=== PATIENT | male | born 1955 | race Asian ===

== ENCOUNTER 2018-11-05 11:31 | Inpatient (IN) | payer BC ==
[2018-11-05 11:57] LABS: Hematocrit 36 % (36-46); Hemoglobin 11.4 g/dL (14.0-18.0); Mean Corpuscular HGB Conc 32 g/dL (31-36); Mean Corpuscular Hemoglobin 25 pg (27-31); Mean Corpuscular Volume 78 fL (80-94); Mean Platelet Volume 7.4 fL (7.4-10.4); Platelet Count 345 10^3/uL (150-450); Red Blood Count 4.61 10^6 /uL (4.18-5.48); Red Cell Distribution Width 16 % (10.5-15); White Blood Count 7.6 10^3/uL (3.5-10.8)
[2018-11-05 12:08] LABS: ABS Basophils 0 10^3/ul (0-0.2); ABS Eosinophils 0 10^3/ul (0-0.6); ABS Monocytes 0.6 10^3/ul (0-0.8); ABS Neutrophils 5.8 10^3/ul (1.5-7.7); ABS Nucleated RBC 0 10^3/ul; Eosinophil % 0.5 %; Lymphocyte % 13.3 %
[2018-11-05 12:09] LABS: Nucleated Red Blood Cells % 0
--- NOTE | 2018-11-05 12:15 | ED ---
HPI Chest Pain - HPI Summary HPI Summary: Patient is a 63 y/o male brought in by EMS who presents to the ED c/o CP. About 1 month ago he began to have CP and SOB. The pain is located in his left anterior chest, radiates to his back, and is described as pressure. Pain is rated a 7/10 in severity, and is made worse with exertion. Patient states that his pain has been worsening over time, and he is losing sleep because of the pain. He also c/o generalized weakness and fatigue, but denies any nausea or dizziness. Patient has been on a 4 medication regimen for active TB for the past 2 months. As per , he has 5 days left of his medications. As per EMS, he is no longer contagious. notes that he had a cough prior to starting the medications but this has resolved. He believes his symptoms may be a side effect of the medications. However, he went to a physician in [place] and told this was not the case. A CXR done there was negative, and he had a CT but has not yet received the results. As per medical records, he is not a smoker. 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 Negative: Dizziness, Nausea Related History: Similar Episode/Dx as: - current TB treatment - Allergy/Home Medications Allergies/Adverse Reactions: Allergies Allergy/AdvReac Type Severity Reaction Status Date / Time azithromycin Allergy Unknown Verified 11/05/18 11:34 Reaction Details levofloxacin Allergy Unknown Verified 11/05/18 11:34 Reaction Details Tetracyclines Allergy Unknown Verified 11/05/18 11:34 Reaction Details Home Medications: Home Medications Albuterol inh POWDER (NF) [Proair Respiclick] 2 puff INH Q4HR PRN 11/05/18 [ History Confirmed 11/05/18] Isoniazid TAB* 300 mg PO DAILY 11/05/18 [History Confirmed 11/05/18] Moxifloxacin TAB(NF) [Avelox TAB (NF)] 400 mg PO DAILY 11/05/18 [History Confirmed 11/05/18] Pyridoxine HCl (Vitamin B6) [Vitamin B-6] 25 mg PO DAILY 11/05/18 [History Confirmed 11/05/18] RiFAMPin CAP* 600 mg PO DAILY 11/05/18 [History Confirmed 11/05/18] traMADol TAB* [Ultram*] 50 mg PO Q6HR PRN 11/05/18 [History Confirmed 11/05/18] PMH/Surg Hx/FS Hx/Imm Hx Endocrine/Hematology History: Denies: Hx Diabetes Cardiovascular History: Denies: Hx Hypertension GI History: Reports: Other GI Disorders - peptic ulcers - Surgical History Surgery Procedure, Year, and Place: 2/3 stomach removed Infectious Disease History: Yes Infectious Disease History: Reports: Hx Tuberculosis Denies: Traveled Outside the [place] in Last 30 Days - Family History Known Family History: Negative: Hypertension, Diabetes - Social History Alcohol Use: None Hx Substance Use: No Substance Use Type: Reports: None Hx Tobacco Use: No Smoking Status (MU): Never Smoked Tobacco Review of Systems Positive: Fatigue Positive: Chest Pain Positive: Shortness Of Breath Negative: Nausea Neurological: Other - NEGATIVE: dizziness Positive: Weakness - generalized All Other Systems Reviewed And Are Negative: Yes Physical Exam - Summary Physical Exam Summary: Constitutional: Well-developed, Well-nourished, Alert. Appears uncomfortable. Skin: Warm, Dry HENT: Normocephalic; Atraumatic Eyes: Conjunctiva normal Neck: Musculoskeletal ROM normal neck. (-) JVD, (-) Stridor, (-) Tracheal deviation Cardio: Rhythm regular, rate normal, Heart sounds normal; Intact distal pulses; The pedal pulses are 2+ and symmetric. Radial pulses are 2+ and symmetric. (-) Murmur Pulmonary/Chest wall: Effort normal. (-) Respiratory distress, (-) Wheezes, (-) Rales Abd: Soft, (-) tenderness, (-) Distension, (-) Guarding, (-) Rebound Musculoskeletal: (-) Edema Lymph: (-) Cervical adenopathy Neuro: Alert, Oriented x3 Psych: Mood and affect Normal Triage Information Reviewed: Yes Vital Signs On Initial Exam: Initial Vitals Temp Pulse Resp BP Pulse Ox 98.8 F 56 24 116/71 98 11/05/18 11:31 11/05/18 11:31 11/05/18 11:31 11/05/18 11:31 11/05/18 11:31 Vital Signs Reviewed: Yes Diagnostics - Vital Signs Vital Signs Temp Pulse Resp BP Pulse Ox 11/05/18 11:35 54 16 116/71 98 11/05/18 11:31 98.8 F 56 24 116/71 98 - Laboratory Lab Results: Lab Results 11/05/18 Range/Units 11:50 WBC 7.6 (3.5-10.8) 10^3/uL RBC 4.61 (4.18-5.48) 10^6 /uL Hgb 11.4 L (14.0-18.0) g/dL Hct 36 (36-46) % MCV 78 L (80-94) fL MCH 25 L (27-31) pg MCHC 32 (31-36) g/dL RDW 16 H (10.5-15) % Plt Count 345 (150-450) 10^3/uL MPV 7.4 (7.4-10.4) fL Neut % (Auto) 77.5 % Lymph % (Auto) 13.3 % Davie % (Auto) 8.1 % Eos % (Auto) 0.5 % Baso % (Auto) 0.6 % Absolute Neuts (auto) 5.8 (1.5-7.7) 10^3/ul Absolute Lymphs (auto) 1.0 (1.0-4.8) 10^3/ul Absolute Monos (auto) 0.6 (0-0.8) 10^3/ul Absolute Eos (auto) 0 (0-0.6) 10^3/ul Absolute Basos (auto) 0 (0-0.2) 10^3/ul Absolute Nucleated RBC 0 10^3/ul Nucleated RBC % 0 Result Diagrams: 11/05/18 11:50 11/05/18 11:50 Lab Statement: Any lab studies that have been ordered have been reviewed, and results considered in the medical decision making process. - Radiology CXR Radiology Interpretation Completed By: Radiologist Summary of Radiographic Findings: CT thorax with IV contrast suggested for further assessment given abnormal findings at the RIGHT superior mediastinum. Patchy pulmonary consolidation at the LEFT mid to lower lung zone is suspicious for pneumonia given the clinical context. This can also be further assessed with CT. ED physician reviewed radiology report. - EKG 11:37 Cardiac Rate: Bradycardia - 57 bpm EKG Rhythm: Sinus Bradycardia Summary of EKG Findings: Bradycardia at 57 bpm, normal [place], normal QRS, normal QTc, normal axis, ST elevations in leads V1-V2, normal T-waves, non-specific EKG. Re-Evaluation - Re-Evaluation First Eval Re-Evaluation Time: 16:00 Change: Improved Comment: Pt is requesting pain medicaitons. Second Eval Re-Evaluation Time: 18:21 Change: Unchanged Comment: Pt is requesting transfer. Third Eval Re-Evaluation Time: 19:28 Change: Unchanged Comment: Discussed admission plan with patient. Chest Pain Course/Dx - Course Course Of Treatment: Patient is a 63 y/o male brought in by EMS who presents to the ED c/o CP, SOB, generalized weakness, fatigue. Patient has been on a 4 medication regimen for active TB for the past 2 months. He believes his symptoms may be a side effect of the medications. A physical exam revealed the patient appears uncomfortable. A CXR revealed CT thorax with IV contrast suggested for further assessment given abnormal findings at the RIGHT superior mediastinum. Patchy pulmonary consolidation at the LEFT mid to lower lung zone is suspicious for pneumonia given the clinical context. This can also be further assessed with CT. An EKG revealed bradycardia at a rate of 57 bpm, ST elevations in V1-V2, and non-specific EKG. In the course patient was given Percocet. Bloodwork obtained. Final dx is tuberculosis. Consulted with infectious disease team, who would like the patient to be isolated. Patient is admitted to Dr. Sauceda and is agreeable with this plan. - Diagnoses Provider Diagnoses: Tuberculosis - Provider Notifications Discussed Care Of Patient With: Yoselin Evangelista Time Discussed With Above Provider: 16:25 Instructed by Provider To: Other - Infectious disease will compare radiology reports and possibly admit the patient. The reports look similar in comparison. At 18:38 spoke to the Transfer Center who will call back. At 18:57 the Transfer Center said they would like the patient to stay here and be isolated. At 19:00 Dr. Sauceda said she accepts the patient for admission. Discharge - Sign-Out/Discharge Documenting (check all that apply): Patient Departure - Admit Patient Received Moderate/Deep Sedation with Procedure: No - Discharge Plan Condition: Stable Disposition: ADMITTED TO [facility] - Billing Disposition and Condition Condition: STABLE Disposition: Admitted to [facility] - Attestation Statements Document Initiated by Nurisibe: Yes Documenting Scribe: Lizet Fernandes Provider For Whom Rama is Documenting (Include Credential): Shannan Farah MD Scribe Attestation: Lizet Friedman, scribed for Shannan Vaz MD on 11/05/18 at 2246. Scribe Documentation Reviewed: Yes Provider Attestation: The documentation as recorded by the Lizet nunn accurately reflects the service I personally performed and the decisions made by , Shannan Farah MD Status of Scribe Document: Viewed
[2018-11-05 12:17] LABS: ALT 43 U/L (7-52); AST 26 U/L (13-39); Albumin 3.6 g/dL (3.2-5.2); Albumin/Globulin Ratio 1.2 (1-3); Alkaline Phosphatase 75 U/L (34-104); Anion Gap 5 mmol/L (2-11); BUN/Creatinine Ratio 28.1 (8-20); Blood Urea Nitrogen 18 mg/dL (6-24); CO2 Carbon Dioxide 28 mmol/L (22-32); Calcium 8.7 mg/dL (8.6-10.3); Chloride 104 mmol/L (101-111); EGFR African American 152.8 (>60); EGFR Non-African American 126.3 (>60); Glucose 97 mg/dL (70-100); Potassium 3.8 mmol/L (3.5-5.0); Sodium 137 mmol/L (135-145); Total Protein 6.6 g/dL (6.4-8.9)
[2018-11-05] MEDS ORDERED: oxyCODONE/Acetamin 5/325 MG* TAB PO ONE (16:26)
[2018-11-05] MEDS ORDERED: Al Hydrox/Mg Hydrox/Simet LIQ* 30 ML UDC PO PRN (20:43)
[2018-11-05] MEDS ORDERED: Senna TAB PO PRN (20:43)
[2018-11-05] MEDS ORDERED: Acetaminophen TAB* 325 MG PO PRN (20:43)
[2018-11-05] MEDS ORDERED: Docusate CAP* 100 MG PO PRN (20:43)
[2018-11-05] MEDS ORDERED: Ondansetron INJ* 2 MG/ML VIAL IV PRN (20:43)
[2018-11-05] MEDS ORDERED: Albuterol HFA INHALER* 8 gm MDI INH PRN (20:46)
[2018-11-05 21:11] LABS: % Iron Saturation 7 % (15-55); Iron 32 ug/dL (50-212); Total Iron Binding Capacity 487 mcg/dL (250-450); Transferrin 348 mg/dL (203-362)
[2018-11-05 21:33] LABS: Ferritin 10.2 ng/mL (24-336)
[2018-11-05 21:36] LABS: Folate > 20.00 ng/mL (>3.99)
[2018-11-05] MEDS ORDERED: Iohexol 350* (CONTRAST) 500 ML MDV IV ONE (21:42)
[2018-11-05] MEDS: Melatonin 3 MG TAB PO PRN (23:54)
[2018-11-06] MEDS ORDERED: Lactated Ringers 1000 ML Bag* 1,000 ML IV SCH
--- NOTE | 2018-11-06 00:08 | HP ---
HISTORY AND PHYSICAL: DATE OF ADMISSION: 11/05/18 PRIMARY CARE PHYSICIAN: The patient does not have a primary care physician. TIME OF EVALUATION: 1999 CHIEF COMPLAINT: Chest pain and weakness. 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 He states he has 5 days left of his 2 month treatment for this and they were going to switch him to isoniazid and moxifloxacin for 4 more months. He states he has been taking his medications as prescribed but he has gotten progressively weaker with left-sided chest pain and pleuritic pain. He states he no longer has a cough, no fever, no night sweats. He has gotten weaker with no falls, is having a hard time taking care of himself. His and his daughter live here in [place] and they brought him back to [place] so that they could take care of him, but brought him directly to the emergency room. He was going to try to follow up with Infectious Diseases, but our current Infectious Diseases are not available. They tried to get him to get into [facility], but that did not happen. The patient denies any nausea, vomiting, diarrhea. No abdominal pain. He states he had a recent sputum testing a few weeks ago, not a BAL, that was negative. In the emergency, room the patient had labs and imaging. They did speak with Dr. Kirk from [facility], who recommended repeat BAL testing and to continue current regimen. The patient did not want a CAT scan as he discussed he just had one 10 days ago, I do not have that report. I discussed we probably would not be able to get that result and with his long road trip that he was just on, we should rule out a pulmonary embolism after much discussion he was agreeable to this. PAST MEDICAL HISTORY: 1. History of latent TB 20 years ago when he was in [place], per record he was treated with rifampin. 2. 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 3. History of stomach ulcer with complications requiring surgery. 4. History of a small bowel obstruction requiring lysis of adhesions in 2006. MEDICATIONS: 1. Tramadol 50 mg every 6 hours as needed. 2. Moxifloxacin 400 mg p.o. daily. 3. Isoniazid 300 mg daily. 4. Ethambutol 800 mg daily. 5. Albuterol inhaler q.4 hours as needed. 6. Pyridoxine 25 mg p.o. daily. ALLERGIES: AZITHROMYCIN, LEVOFLOXACIN, TETRACYCLINE. FAMILY HISTORY: Parents secondary to old age. SOCIAL HISTORY: The patient was living alone in [place], just relocated here 2 days ago. He states he cannot walk up the stairs. He gets very short of breath. He has weakness. He needs help with his ADLs due to weakness. No falls. He does not use an assistive device. No history of tobacco, alcohol or illicit drug use. His healthcare proxy is . He has 2 grown children. Code status is full code. REVIEW OF SYSTEMS: A 14-point review of systems are reviewed and as mentioned in the HPI, otherwise negative. PHYSICAL EXAMINATION GENERAL: Frail elderly female in no acute distress. and daughter at the bedside. VITAL SIGNS: Temp 98, pulse rate 75, respiratory rate 18, oxygen saturation 98 % on room air, blood pressure 123/61. HEENT: Head: Normocephalic. Pupils are equal and reactive. Oropharynx: Mucous membranes are moist. NECK: Supple. No lymphadenopathy. RESPIRATORY: Diminished breath sounds. No wheezes, rhonchi or rales. CARDIAC: Regular rate and rhythm. Soft systolic murmur heard throughout. ABDOMEN: Soft, nontender, nondistended. EXTREMITIES: There is no clubbing, cyanosis, or edema. +1 DP. NEUROLOGIC: Alert and oriented x3. No gross focal neurologic deficits. LABORATORY DATA: White count 7.6, hemoglobin 11.4, hematocrit 36, platelets 345. Sodium 137, potassium 3.8, chloride 104, bicarb 28, BUN 18, creatinine 0.84 , glucose 97. Lactic acid 0.7. Troponin is 0. RADIOGRAPHIC DATA: Patchy pulmonary consolidation at the left mid to lower lung zone suspicious for pneumonia given the clinical context irregular right superior mediastinal contour, which may reflect adenopathy, mass, or superimposed pulmonary parenchyma lesion or scarring. EKG: Sinus bradycardia with a rate of 57, minimal ST elevation in the interior leads. ASSESSMENT: This is a 63-year-old male who has been on treatment for reactivation of latent tuberculosis for nearly 2 months, who relocated from [place] due to generalized weakness, decline and he is complaining of left- sided chest pain. 1. Weakness with left-sided chest pain. Assessment: The patient is currently being treated for reactivation TB. His weakness could be just generalized decline from his pulmonary disease and side effects of the medications he has been. The concern is left-sided chest pain, which was present prior to his relocation. However, with a long car ride, one has to be concerned about a pulmonary embolism as well and persistent tuberculosis as I do question if he is truly taking his medications as prescribed. The ER spoke with Dr. Reagan REDD at [facility], who recommended repeat BAL. Plan: We will admit him to a negative pressure isolation room, we will continue him on his moxifloxacin, rifampin, isoniazid and I am going to increase his pyridoxine to 100 mg in case neuropathy is playing a role in his weakness. I did speak with Dr. Montano who is hopeful to do a bronch with BAL studies, in the morning. We will keep him n.p.o. after midnight. We will also order a CTA of the chest to further identify the abnormalities in his chest x- ray and to rule out pulmonary embolism. We will also obtain an echocardiogram as well in the setting of the significant pulmonary disease 2. Disposition. I suspect the patient is going to be in acute rehab. Ordered PT consultation to evaluate for this. The patient will also need to be established with the new primary care physician. 3. FEN regular diet, n.p.o. after midnight for bronchoscopy. We will place him on gentle fluids at that time as well. 4. DVT prophylaxis. The patient scores moderate risk. If the CTA is negative , we will place him on heparin subcu t.i.d. 5. Code status full code. TIME SPENT: Greater than 50 minutes was spent doing the history and physical, more than half the time spent in direct patient contact. [id number]/[facility] #: [id number] MTDD
[2018-11-06 06:07] LABS: ABS Basophils 0 10^3/ul (0-0.2); ABS Eosinophils 0.1 10^3/ul (0-0.6); ABS Lymphocytes 1.9 10^3/ul (1.0-4.8); ABS Monocytes 0.6 10^3/ul (0-0.8); ABS Neutrophils 5.7 10^3/ul (1.5-7.7); ABS Nucleated RBC 0 10^3/ul; Eosinophil % 1.6 %; Hematocrit 35 % (36-46); Lymphocyte % 22.3 %; Mean Corpuscular HGB Conc 32 g/dL (31-36); Mean Corpuscular Hemoglobin 25 pg (27-31); Mean Corpuscular Volume 78 fL (80-94); Mean Platelet Volume 7.5 fL (7.4-10.4); Nucleated Red Blood Cells % 0; Platelet Count 337 10^3/uL (150-450); Red Blood Count 4.43 10^6 /uL (4.18-5.48); Red Cell Distribution Width 16 % (10.5-15); White Blood Count 8.3 10^3/uL (3.5-10.8)
[2018-11-06 06:26] LABS: BUN/Creatinine Ratio 21.5 (8-20); Calcium 8.4 mg/dL (8.6-10.3); EGFR African American 150.1 (>60); EGFR Non-African American 124.1 (>60); Potassium 3.9 mmol/L (3.5-5.0)
[2018-11-06 06:28] LABS: Troponin I 0.01 ng/mL (<0.04)
[2018-11-06] MEDS ORDERED: Iron Sucrose* 200 MG in NS 0.9% 100 ML* 100 ML IVPB ONE (08:47)
[2018-11-06 09:08] LABS: Magnesium 2.3 mg/dL (1.9-2.7)
[2018-11-06] MEDS: ETHAMBUTOL 400 MG PO SCH (09:53)
[2018-11-06] MEDS: MOXIFLOXACIN 400 MG PO SCH (09:54)
[2018-11-06] MEDS: ISONIAZID 300 MG PO SCH (09:54)
[2018-11-06] MEDS: Pyridoxine TAB* 50 MG PO SCH (09:59)
[2018-11-06] MEDS: Ferrous Sulfate TAB* 325 MG PO SCH (11:16)
--- NOTE | 2018-11-06 11:43 | ECHO ---
*[facility]* [place] [address] Fax #: [phone] Transthoracic Echocardiogram Patient: Violeta, Height: 69 in / 175.3 Darya forbes : 1955 Weight: 99.8 lb / Study Date: 11/06/2018 45.4 kg Age: 63 BP: 119 / 62 Gender: M BMI/BSA: 14.8 kg/m^2 / HR: 48 bpm 1.54 m^2 *Mason Tender: * Padmini Harris *Referring Physician: * Christie Joyner *Reading Physician: * Alba Chappell Indications: Chest Pain, unspecified. History: Reactivation of TB. Bradycardia. Conclusions Summary: 1. Left ventricle: Normal chamber dimensions. The estimated ejection fraction is 50-55%. Wall motion is normal; there are no regional wall motion abnormalities. Left ventricular diastolic function parameters are indeterminate. 2. Right ventricle: Wall thickness is moderately increased. Systolic function is moderately to severely reduced. 3. Grossly normal aortic and mitral valve function, pulmonic and tricuspid valves not well seen. 4. No prior echocardiogram to compare. Study data: Transthoracic echocardiogram. Procedure: Transthoracic echocardiography was performed. Image quality was suboptimal. Complete 2D, spectral Doppler, and color flow Doppler. Location: Procedure room. Findings Left ventricle: Not well visualized. The cavity size is normal. Wall thickness is normal. The estimated ejection fraction is 50-55%, by visual assessment. Wall motion is normal; there are no regional wall motion abnormalities. Left ventricular diastolic function parameters are indeterminate. Right ventricle: Not well visualized, subcostal view adequate. The cavity size is normal. Wall thickness is moderately increased based on subcostal image. Systolic function is moderately to severely reduced. Left atrium: Not well visualized. Right atrium: Not well visualized. Mitral valve: Adequate visualization. The leaflets are normal thickness. Leaflet separation is normal. There is no evidence of stenosis. There is no significant regurgitation. Aortic valve: Not well visualized. There is no evidence of stenosis. There is no regurgitation. Tricuspid valve: Not well visualized. Best seen subcostal view, no color Doppler performed. Pulmonic valve: Not well visualized. Aorta: The aorta is not visualized, no abnormality no color Doppler, no PW or CW performed. Measurements Left ventricle Value Ref Right ventricle Value Ref HORACIO, LAX (L) 3.5 cm 4.2 - 5.8 AW thickness, ED (H) 0.9 cm 0.1 - 0.5 PW, ED 1.0 cm 0.6 - 1.0 HORACIO, LAX 2.4 cm --------- IVS/PW, ED 0.98 --------- Aortic valve Value Ref LVOT Value Ref Peak v, S 0.78 m/sec --------- Peak jazmín, S 0.62 m/sec --------- Mean v, S 0.45 m/sec --------- Mean jazmín, S 0.42 m/sec --------- VTI, S 18.2 cm --------- Mean grad, S 1 mm Hg --------- Mitral valve Value Ref Ventricular septum Value Ref Peak E 0.75 m/sec --------- IVS, ED 1.0 cm 0.6 - 1.0 Peak A 0.6 m/sec --------- Decel time 183 ms --------- Peak E/A ratio 1.3 --------- Legend: (L) and (H) jovon values outside specified reference range. Prepared and electronically signed by Alba Chappell 11/06/2018 11:42
--- NOTE | 2018-11-06 11:52 | CONS ---
PULMONARY CONSULTATION REPORT: DATE OF CONSULT: 11/06/18 CONSULTATION REQUESTED BY: Dr. Christie Joyner. REASON FOR CONSULT: Evaluation of abnormal CT chest and for possible bronchoscopy. HISTORY OF PRESENT ILLNESS: The patient is a 63-year-old male, [place] immigrant, with history of latent TB with reactivation in June of 2018 when he presented with chronic cough, weight loss, night sweats. The patient had sputum culture at outside facility and was diagnosed with pulmonary tuberculosis. The patient was initiated on 4- drug therapy. The patient almost completing the 2-month therapy, has 4 more days left of his 2-month therapy with moxifloxacin, INH, pyridoxine, and ethambutol. He had rifampin- resistant mycobacterium tuberculosis. He was subsequently going to be switched to INH and moxifloxacin for 4 more months. The patient has been living in [place]. He recently moved to live with his family. He has been having ongoing issues with left-sided chest pain for the past few weeks. Chest pain is pleuritic in nature. Denies cough or sputum production. The patient denies night sweats. He reports 4- to 5-pound weight loss since June. He reports gradually worsening weakness. Reports improvement in chest pain with Percocet. The patient had further evaluation including chest x-ray and CT of the chest. I personally reviewed chest x-ray and CTA of the chest. Chest x-ray showed airspace opacities in the left mid to lower lung zone. The patient also with right sided pleuro- parenchymal scarring. No pleural effusion was noted. The patient noted to have irregular right mediastinal contour. The patient had CTA of the chest, which showed no evidence of pulmonary embolism. The patient noted to have significant bronchiectasis and scarring in the left apex. The patient also with calcified granuloma in the right apex. The patient with multiple bilateral pulmonary nodules largest measuring 1 cm in diameter. The patient also with dilated bronchi and mucus plugging in the left lingular region and left base. The patient also with airspace disease in the right base. The patient was placed on sedation. On consultation with Infectious Disease at [facility], it was recommended to have repeat BAL cultures for AFB given resistant bacteria in the past. The patient seen and examined in that site. The patient reports improvement in the chest pain with Percocet. The patient otherwise denies any other complaints. He does report weight loss. He does not have any night sweats. He is not bringing out phlegm while he is coughing. The patient reports compliance with his TB medications. He denies significant shortness of breath other than when climbing stairs or with significant exertion. PAST MEDICAL HISTORY: 1. Latent TB for 20 years diagnosed when he was in [place], has taken rifampin in the past. The patient with reactivation of TB in June of 2018, started on treatment, almost finishing his 2-month regimen with 4 drugs. 2. Stomach ulcer with complications requiring surgery. 3. Small bowel obstruction, requiring lysis of adhesions in 2006. MEDICATIONS: 1. Tramadol. 2. Moxifloxacin. 3. INH 300 mg. 4. Ethambutol 800 mg. 5. Albuterol q.4 hours. 6. Pyridoxine 25 mg daily. ALLERGIES: AZITHROMYCIN, LEVOFLOXACIN, TETRACYCLINE. FAMILY HISTORY: Parents due to old age. SOCIAL HISTORY: Relocated from [place] 2 days back. No history of tobacco , alcohol, or drug abuse. REVIEW OF SYSTEMS: All 14 systems reviewed and as per HPI. PHYSICAL EXAM: The patient is in bed, in no apparent distress, thin male. Vital Signs: Temperature 97.5, pulse 50 beats per minute, respiratory rate 18 per minute, O2 sat 97% on room air, blood pressure 112/68. HEENT: Pupils equal , reactive to light. Mucous membranes moist. Lungs: Good air entry bilaterally; however, diminished breath sounds. No wheeze or rales. Cardiovascular: S1, S2 present. Regular, soft systolic murmur. Abdomen: Soft , nontender, nondistended. Extremities: Normal range of motion. Neurological: Alert, awake, oriented x3. No focal deficits. DIAGNOSTIC STUDIES/LAB DATA: WBC count 8.3, hemoglobin 11, hematocrit 35, platelet count 337. Sodium 138, potassium 3.9, chloride 105, bicarb 29, BUN 14 , creatinine 0.65. Troponin x3 within normal limits. Iron levels and ferritin levels were decreased. Chest x-ray and CTA of the chest as described above in HPI. EKG showed sinus bradycardia with no acute ST-T wave changes. IMPRESSION AND RECOMMENDATIONS: 63-year-old male with history of latent tuberculosis, now with reactivation tuberculosis, on treatment, with ongoing chest pain and weight loss. Symptoms unclear if are secondary to suboptimally treated TB given concern with drug resistance verses bacterial pneumonia in setting of bronchiectasis I did not think the patient is infectious at this time. He is not actively coughing. He is, however, placed in isolation given history of tuberculosis. Will schedule the patient for bronchoscopy. Will obtain BAL for cultures and AFB and regular bacterial cultures Procedure was discussed in detail with the patient. Associated risks and benefits were thoroughly explained. Risk of pneumothorax was discussed. The patient agreeable to the procedure. Further recommendations pending AFB and bacterial cultures. [id number]/[facility] #: [id number] TURNER
[2018-11-06] MEDS ORDERED: fentaNYL* 50 MCG/ML 5 ML VIAL (250 MCG VIAL) ONE (13:20)
[2018-11-06] MEDS ORDERED: Midazolam* 1 MG/ML 10 ML VIAL (10 MG) ONE (13:20)
--- NOTE | 2018-11-06 14:30 | PN ---
Subjective Date of Service: 11/06/18 Interval History: Followed up with [facility] - spoke with Dr. Zita Gleason, who recommended ruling out for TB given MDR TB, even though pt is likely to have his symptoms explained by medication side effect and structural lung disease. If unable to get sputum, will need BAL. Outside records from 10/15/2018 ID clinic visit reports that patient had multiple sputum samples from end of September result SMEAR NEGATIVE. Pt had CP/SOB at that time that was unchanged and thought likely secondary to immune reconstitution. He was on INH, PZA, moxifloxacin, and ethambutol. He was 105 lbs at that visit - now is 101 lbs. Full history: Had latent TB treatment 27 years ago with rifampin in [place]. 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 Then lost to f/u. 04/2018 - Cough started 06/2018 - BAL with MTB - took 8 weeks to grow. Initial AFB stains and MTB PCR negative. 09/12/2018 - Initial consult with ID - started on INH, rifampin, ethambutol, and pyrazinamide. 09/17/2018 - Moxi was added given rifampin resistance assay positive. Today on interview, pt still reporting weakness and fatigue. When discussed working with PT and possibility of rehab, pt state he "feels strong". Consented for HIV testing. Objective Active Medications: Acetaminophen (Tylenol Tab*) 650 mg PO Q4H PRN PRN Reason: FEVER/PAIN Al Hydrox/Mg Hydrox/Simethicone (Maalox Plus*) 30 ml PO Q6H PRN PRN Reason: INDIGESTION Albuterol (Ventolin Hfa Inhaler*) 2 puff INH Q4HR PRN PRN Reason: SHORTNESS OF BREATH Ascorbic Acid (Vitamin C Tab*) 500 mg PO DAILY [facility] Ethambutol HCl (Myambutol Tab*) 800 mg PO DAILY [facility] Last Admin: 11/06/18 09:53 Dose: 800 mg Ferrous Sulfate (Ferrous Sulfate Tab*) 325 mg PO DAILY [facility] Last Admin: 11/06/18 11:16 Dose: 325 mg Isoniazid (Isoniazid Tab*) 300 mg PO DAILY [facility] Last Admin: 11/06/18 09:54 Dose: 300 mg Melatonin (Melatonin) 3 mg PO BEDTIME PRN PRN Reason: SLEEP Last Admin: 11/05/18 23:54 Dose: 3 mg Moxifloxacin HCl (Avelox Tab (Nf)) 400 mg PO DAILY [facility] Last Admin: 11/06/18 09:54 Dose: 400 mg Multivitamins/Minerals (Theragran/Minerals Tab*) 1 tab PO DAILY [facility] Ondansetron HCl (Zofran Inj*) 4 mg IV Q4H PRN PRN Reason: NAUSEA/VOMITING Pyrazinamide (Pyrazinamide*) 1,000 mg PO QPM [facility] Pyridoxine HCl (Vitamin B6 Tab*) 100 mg PO DAILY [facility] Last Admin: 11/06/18 09:59 Dose: 100 mg Senna (Senokot Tab*) 1 tab PO BID PRN PRN Reason: CONSTIPATION Tramadol HCl (Ultram*) 50 mg PO Q6HR PRN PRN Reason: PAIN Vital Signs - 8 hr 11/06/18 11/06/18 11/06/18 07:30 07:43 10:27 Temperature 97.5 F 98.1 F Pulse Rate 50 60 Respiratory 20 18 20 Rate Blood Pressure 112/68 106/70 (mmHg) O2 Sat by Pulse 97 98 Oximetry Oxygen Devices in Use Now: None Appearance: cachectic, alert and interactive, NAD, no increased WOB Ears/Nose/Mouth/Throat: Mucous Membranes Moist Neck: NL Appearance and Movements; NL JVP Respiratory: - - clear but with decreaesed breath sounds Cardiovascular: RRR Abdominal: NL Sounds; No Tenderness; No Distention Extremities: No Edema Result Diagrams: 11/06/18 05:56 11/06/18 05:56 Additional Lab and Data: Lab Results 11/05/18 Range/Units 11:50 WBC 7.6 (3.5-10.8) 10^3/uL RBC 4.61 (4.18-5.48) 10^6 /uL Hgb 11.4 L (14.0-18.0) g/dL Hct 36 (36-46) % MCV 78 L (80-94) fL MCH 25 L (27-31) pg MCHC 32 (31-36) g/dL RDW 16 H (10.5-15) % Plt Count 345 (150-450) 10^3/uL MPV 7.4 (7.4-10.4) fL Neut % (Auto) 77.5 % Lymph % (Auto) 13.3 % [place] % (Auto) 8.1 % Eos % (Auto) 0.5 % Baso % (Auto) 0.6 % Absolute Neuts (auto) 5.8 (1.5-7.7) 10^3/ul Absolute Lymphs (auto) 1.0 (1.0-4.8) 10^3/ul Absolute Monos (auto) 0.6 (0-0.8) 10^3/ul Absolute Eos (auto) 0 (0-0.6) 10^3/ul Absolute Basos (auto) 0 (0-0.2) 10^3/ul Absolute Nucleated RBC 0 10^3/ul Nucleated RBC % 0 Assess/Plan/Problems-Billing Assessment: 63M with h/o LTBI treated , with reactivation last year and documented rifampin-resistance, presents 2 months after starting treatment with continued weight loss, chest and back pain, and shortness of breath. It it likely that his symptoms are a combination of med adverse effect and structural lung disease. Reports that his cough and nightsweats resolved over 1 month ago. Noted to have had negative sputums at the end of September. - Patient Problems (1) Drug resistant tuberculosis Comment: - cont INH, PZA, ethambutol, and moxifloxacin - can change regimen after micro data results - orders for induced sputums with AFB smear/PCR - will discuss BAL with pulm - appreciate Dr. Montano - f/u HIV test - unclear why he was thought to have "immune reconstitution" with his TB meds per his prior ID doc - cont vit B6 (2) Iron deficiency anemia Comment: ferrous sulfate PO with vitamin C - pt refused IV iron (3) Malnutrition Comment: BMI 16.8. Nutrition consulted. (4) DVT prophylaxis Comment: pt ambulatory, will hold in case of bronch (5) Full code status
[2018-11-06] MEDS: traMADol TAB* 50 MG PO PRN (16:36)
[2018-11-07] MEDS: Melatonin 3 MG TAB PO PRN (01:44)
[2018-11-07] MEDS: traMADol TAB* 50 MG PO PRN (01:44)
[2018-11-07 08:07] LABS: BUN/Creatinine Ratio 18.3 (8-20); Calcium 8.5 mg/dL (8.6-10.3); EGFR African American 135.6 (>60); EGFR Non-African American 112.1 (>60); Magnesium 2.4 mg/dL (1.9-2.7); Potassium 3.9 mmol/L (3.5-5.0)
[2018-11-07 09:00] LABS: Hematocrit 35 % (36-46); Hemoglobin 10.9 g/dL (14.0-18.0); Mean Corpuscular HGB Conc 32 g/dL (31-36); Mean Corpuscular Hemoglobin 25 pg (27-31); Mean Corpuscular Volume 80 fL (80-94); Platelet Count 339 10^3/uL (150-450); Red Blood Count 4.33 10^6 /uL (4.18-5.48); Red Cell Distribution Width 16 % (10.5-15); White Blood Count 7.9 10^3/uL (3.5-10.8)
[2018-11-07] MEDS ORDERED: Ascorbic Acid TAB* 500 MG PO SCH (09:00)
[2018-11-07] MEDS ORDERED: Multivitamins/Minerals TAB PO SCH (09:00)
[2018-11-07] MEDS: Ferrous Sulfate TAB* 325 MG PO SCH (09:41)
[2018-11-07] MEDS: Pyridoxine TAB* 50 MG PO SCH (10:38)
[2018-11-07] MEDS: ETHAMBUTOL 400 MG PO SCH (10:39)
[2018-11-07] MEDS: ISONIAZID 300 MG PO SCH (10:39)
[2018-11-07] MEDS: MOXIFLOXACIN 400 MG PO SCH (10:40)
--- NOTE | 2018-11-07 10:41 | PN ---
Progress Note - Progress Note Date of Service: 11/07/18 - Pulm f/u note Note: Pt seen and examined at bedside. Pt anxious to go home. Denies chest pain, cough Active Medications Generic Name Dose Route Start Last Admin Trade Name Freq PRN Reason Stop Dose Admin Acetaminophen 650 mg 11/05/18 20:43 Tylenol Tab* PO Q4H PRN FEVER/PAIN Al Hydrox/Mg Hydrox/Simethicone 30 ml 11/05/18 20:43 Maalox Plus* PO Q6H PRN INDIGESTION Albuterol 2 puff 11/05/18 20:46 Ventolin Hfa Inhaler* INH Q4HR PRN SHORTNESS OF BREATH Ascorbic Acid 500 mg 11/07/18 09:00 11/07/18 09:41 Vitamin C Tab* PO 500 mg DAILY [facility] Administration Ethambutol HCl 800 mg 11/06/18 09:00 11/07/18 10:39 Myambutol Tab* PO 800 mg DAILY [facility] Administration Ferrous Sulfate 325 mg 11/06/18 10:00 11/07/18 09:41 Ferrous Sulfate Tab* PO 325 mg DAILY [facility] Administration Isoniazid 300 mg 11/06/18 09:00 11/07/18 10:39 Isoniazid Tab* PO 300 mg DAILY [facility] Administration Melatonin 3 mg 11/05/18 23:10 11/07/18 01:44 Melatonin PO 3 mg BEDTIME PRN Administration SLEEP Moxifloxacin HCl 400 mg 11/06/18 09:00 11/07/18 10:40 Avelox Tab (Nf) PO 400 mg DAILY [facility] Administration Multivitamins/Minerals 1 tab 11/07/18 09:00 11/07/18 10:39 Theragran/Minerals Tab* PO 1 tab DAILY [facility] Administration Ondansetron HCl 4 mg 11/05/18 20:43 Zofran Inj* IV Q4H PRN NAUSEA/VOMITING Pyrazinamide 1,000 mg 11/07/18 18:00 Pyrazinamide* PO QPM [facility] Pyridoxine HCl 100 mg 11/06/18 09:00 11/07/18 10:38 Vitamin B6 Tab* PO 100 mg DAILY [facility] Administration Senna 1 tab 11/05/18 20:43 Senokot Tab* PO BID PRN CONSTIPATION Tramadol HCl 50 mg 11/05/18 20:46 11/07/18 01:44 Ultram* PO 50 mg Q6HR PRN Administration PAIN Vital Signs Temp Pulse Resp BP Pulse Ox 97.7 F 51 18 110/65 99 11/07/18 07:30 11/07/18 07:30 11/07/18 08:05 11/07/18 07:30 11/07/18 07:30 o/e:: Pt in NAD HEENT: PERRLA Lungs: Crackles at bases CVS: S1, S2+ Abd: Soft, BS+ Ext: Normal ROM Neuro: no focal deficits Laboratory Results - last 24 hr 11/07/18 11/07/18 07:41 07:41 WBC 7.9 RBC 4.33 Hgb 10.9 L Hct 35 L MCV 80 MCH 25 L MCHC 32 RDW 16 H Plt Count 339 MPV 8.0 Sodium 139 Potassium 3.9 Chloride 104 Carbon Dioxide 27 Anion Gap 8 BUN 13 Creatinine 0.71 Est GFR ( Amer) 135.6 Est GFR (Non-Af Amer) 112.1 BUN/Creatinine Ratio 18.3 Glucose 97 Calcium 8.5 L Magnesium 2.4 63 y o m with Rifampin resistant TB, a/w lt sided chest pain, CTA negative for PE Pt with significant bronchiectaisis sec to TB with mucus plugging at bases Pt reported improvement in chest pain Able t obtain prior records Discussed importance of compliance with TB meds He will f/u with ID as out pt
[2018-11-07 11:23] VITALS: BP 106/58
[2018-11-07] MEDS ORDERED: PYRAZINAMIDE 500 MG PO SCH (18:00)
--- NOTE | 2018-11-08 00:05 | DS ---
CC: Dr. Baljeet Paniagua; Dr. Montano* DISCHARGE SUMMARY: DATE OF ADMISSION: 11/05/18 DATE OF DISCHARGE: 11/07/18 INFECTIOUS DISEASE DOCTOR: Dr. Baljeet Paniagua. DISPOSITION: Home. CONDITION: Good. PRIMARY DIAGNOSES: 1. Multi-drug resistant tuberculosis. 2. Iron-deficiency anemia. 3. Malnourishment. CONSULTS: [facility], Dr. Montano. DISCHARGE MEDICATIONS: 1. Ethambutol 800 mg daily. 2. Isoniazid 300 mg daily. 3. Moxifloxacin 400 mg daily. 4. Pyrazinamide 1000 mg daily. 5. Pyridoxine 100 mg daily. 6. Tramadol 500 mg every 6 hours as needed for pain. 7. Albuterol 2 puffs every 4 hours as needed for shortness of breath. 8. Ferrous sulfate 325 mg daily on an empty stomach. 9. Ascorbic acid 500 mg daily to take with iron. 10. Multivitamin daily. HISTORY OF PRESENT ILLNESS: A 63-year-old man with reactivation TB, diagnosed in June 2008, on treatment, resistant to rifampin, who was driven by his from [place], [place] over the last 2 days to stay with her in [place], [place]; however, was instead brought to the emergency room at [facility] given progressive chest pain and weakness over the last 2 months. Per outside infectious disease clinic records, the patient has been treated for a latent tuberculosis infection with rifampin in the in [place], [place]. In October of last year, he had return of a cough that was progressive. 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 He had persistence of his cough that worsened in April of last year, and by June, he underwent a bronchioalveolar lavage, which was initially negative for MTB PCR and acid fast stains, but a week later grew Mycobacterium tuberculosis. At the end of August of this year, he had his initial consult with ID and was started on INH , rifampin, ethambutol, and pyrazinamide. However, by early September, it was noted that a rifampin resistant assay was positive, so he had been discontinued on rifampin and added moxifloxacin. He was seen again in his ID clinic twice earlier this month and was noted to have a resolution in his cough, fevers, and night sweats. However, he had been reporting worsening shortness of breath and chest pain that was thought to be due to medication side effect, although of note his infectious disease specialist had written frequently that he thought this was an immune reconstitution syndrome as well. There is no notation that the patient had a diagnosis of HIV and the patient denies this himself; however , he agrees to be tested in the hospital for HIV and screening test was ordered, although it did not result by discharge. Also of note from his prior records during his October visits, his sputum samples given at the end of September have resulted smear negative, so the patient was thought to be no longer infectious and also thought that he was responding to his treatment well. So, he was continued on isoniazid, PZA, moxifloxacin, and ethambutol. HOSPITAL COURSE: The patient was admitted to the medical service and put on isolation precaution in case his new symptoms could have been a reactivation of his TB. He was evaluated by Dr. Montano, and [facility] was made aware of the case as well. Given his prior infectious disease clinic smear results, he was deemed to be no longer infectious and a mutual decision was made with the patient and family to continue the patient on the 4 medications that he was on until he could follow up in ID clinic in [place]. While admitted, he showed no signs of continued infection. He required no supplemental oxygen throughout admission, and he was discovered to have an iron- deficiency anemia, which was thought to have at least contributed to some of his symptoms of fatigue and shortness of breath. Of note, during this hospitalization, he refused nearly all interventions and testing. He eventually was amenable to a chest CTA, which showed right apical scarring and bronchiectatic changes with nodular densities and calcified granulomas, although there is no prior to compare. He was ordered for IV iron, but declined this treatment. He had also been ordered for sputum with acid fast stain and he told the respiratory therapist that he decline giving a sample because be never coughs and he was not amenable to giving an induced sputum. He was also ruled out for myocardial ischemia while admitted with 3 negatives troponins and EKG without concerning findings. On the day of discharge, the patient reported his baseline chest and back pain that seemed to be largely unchanged over the last 6 to 8 weeks. He reported some shortness of breath; however, it was noted that when he considered physical therapy evaluation for possible rehab placement, the patient immediately denied his prior symptoms of fatigue and shortness of breath and stated that he was strong and did not need help. Otherwise, 10-point review of systems is negative. PHYSICAL EXAMINATION: The patient is afebrile with other vital signs stable. In general, he is a cachectic-appearing man older than his stated age, who is alert, interactive, and friendly, although fixated on certain questions like why he needs to take 4 antibiotics until he sees the infectious disease specialist. His neck is without JVD. Lungs with diminished breath sounds, but no wheezes, crackles, or rhonchi. Heart: Regular rate and rhythm. No murmurs , gallops, or rubs. Abdomen: Soft, nontender, nondistended. Extremities: Warm and well perfused without edema. Neurologic: A and O x3 without focal neurologic deficits. PERTINENT STUDIES: A chest x-ray, 11/05/18, with patchy pulmonary consolidation of left mid to lower lung zone and right apical pleural and parenchymal scarring. Chest CTA without acute PE but severe right apical pleural and parenchymal scarring with cicatricial change including bronchiectasis and numerous nodular densities including calcified granuloma in this region, likely related to prior mycobacterial infection with additional multiple bilateral intermediate pulmonary nodules in the lungs, some greater than 1 cm with additional obstruction of the distal bronchi particularly left lower lobe and lingular base with some bronchiectasis in this region, which could represent mucus plugging and possibly also a component of bronchiolitis in the lung bases. A TTE on 11/05/18, LV with normal chamber dimensions with EF 50% to 55% with normal wall motion. There are no regional wall motion abnormalities and the LV diastolic function parameters are intermediate. RV with wall thickness moderately increased and systolic function moderately to severely reduced, grossly normal aortic and mitral valve function, pulmonic and tricuspid valves are not well seen. DISCHARGE PLAN: The patient is to establish primary care while he is in [place] and he has been given an appointment for 3 weeks' followup with infectious disease specialist, Dr. Baljeet Paniagua. He is to continue his 4 antituberculosis medicines as above with the addition of vitamin B6 and iron. Him and his and daughter were extensively educated on return precautions. He can continue tramadol started by his prior infectious disease specialist for chest and back pain thought likely from structural destruction of lungs in the context of tuberculosis that is responding to treatment. He was encouraged to continue eating foods that he enjoys to maintain a higher caloric intake given his low BMI. TIME SPENT: Approximately 60 minutes was spent on discharge of this patient, more than half of which was spent with care coordination or at bedside for interview and exam. [id number]/[facility] #: [id number] [place]
== END 2018-11-07 14:21 | disposition home or self-care (01) | DRG 137 ==
LOC: ED 11:31 → MEDTELE 20:43
PROVIDERS: ADMIT Pediatrics; ATTEND Internal Medicine
DX: A15.0 Tuberculosis of lung (principal); E46 Unspecified protein-calorie malnutrition; T17.890A Other foreign object in other parts of respiratory tract causing asphyxiation, initial encounter; Z68.1 Body mass index [BMI] 19.9 or less, adult; R91.8 Other nonspecific abnormal finding of lung field; R07.9 Chest pain, unspecified; D50.9 Iron deficiency anemia, unspecified; X58.XXXA Exposure to other specified factors, initial encounter; Z16.39 Resistance to other specified antimicrobial drug; Y92.9 Unspecified place or not applicable; Z79.51 Long term (current) use of inhaled steroids; Z79.899 Other long term (current) drug therapy; Z88.1 Allergy status to other antibiotic agents
CPT/HCPCS: 36415; 71045; 71275; 80048; 80053; 82542; 82607; 82728; 82746; 83540; 83550; 83605; 83735; 84207; 84484; 85025; 85027; 87389; 93005; 93306; 94640; 99284; A9270-GY; G0475; J1756; J2250; J3010; Q9967

== ENCOUNTER 2018-12-05 13:19 | Observation (INO) | payer BC ==
[2018-12-05] MEDS ORDERED: NS 0.9% 1000 ML** 1,000 ML IV ONE (13:20)
--- NOTE | 2018-12-05 13:24 | ED ---
Neurological HPI - HPI Summary HPI Summary: LEVEL 5 CAVEAT: HISTORY LIMITED DUE TO ALTERED MENTAL STATUS This patient is a 63 year old male presenting to [facility] with a chief complaint of possible stroke. EMS reports the patient presented with a left sided facial droop. The patient speaks syriac and was able to follow commands, but was mostly non-verbal which is not his normal. His last known normal was at 0940 this morning. The patient has a Hx of present non-infectious tuberculosis. - History of Current Complaint Stated Complaint: POSS STROKE PER EMS Hx Obtained From: EMS Hx From Patient Unobtainable Due To: Altered Mental Status Neurological Deficit Location: Facial - Allergy/Home Medications Allergies/Adverse Reactions: Allergies Allergy/AdvReac Type Severity Reaction Status Date / Time azithromycin Allergy Unknown Verified 11/05/18 11:34 Reaction Details levofloxacin Allergy Unknown Verified 11/05/18 11:34 Reaction Details Tetracyclines Allergy Unknown Verified 11/05/18 11:34 Reaction Details PMH/Surg Hx/FS Hx/Imm Hx Endocrine/Hematology History: Denies: Hx Diabetes Cardiovascular History: Denies: Hx Hypertension GI History: Reports: Other GI Disorders - peptic ulcers History: Denies: Hx Renal Disease Sensory History: Reports: Hx Contacts or Glasses Denies: Hx Hearing Aid, Hx Hearing Problem Opthamlomology History: Reports: Hx Contacts or Glasses - Surgical History Surgery Procedure, Year, and Place: 2/3 stomach removed Infectious Disease History: Reports: Hx Tuberculosis - Family History Known Family History: Negative: Hypertension, Diabetes - Social History Alcohol Use: None Hx Substance Use: No Substance Use Type: Reports: None Hx Tobacco Use: No Smoking Status (MU): Never Smoked Tobacco - Additional Comments History Additional Comments: LEVEL 5 CAVEAT: PMH LIMITED DUE TO ALTERED MENTAL STATUS Review of Systems - ROS Summary Review of Systems Summary: LEVEL 5 CAVEAT: ROS LIMITED DUE TO ALTERED MENTAL STATUS. Neurological: Other - Aphasia, facial droop All Other Systems Reviewed And Are Negative: No Physical Exam - Summary Physical Exam Summary: Constitutional: Well-developed, Well-nourished, Alert. (-) Distressed Skin: Warm, Dry HENT: Normocephalic; Atraumatic Eyes: Conjunctiva normal Neck: Musculoskeletal ROM normal neck. (-) JVD, (-) Stridor, (-) Tracheal deviation Cardio: Rhythm regular, rate normal, Heart sounds normal; Intact distal pulses; The pedal pulses are 2+ and symmetric. Radial pulses are 2+ and symmetric. (-) Murmur Pulmonary/Chest wall: Effort normal. (-) Respiratory distress, (-) Wheezes, (-) Rales Abd: Soft, (-) tenderness, (-) Distension, (-) Guarding, (-) Rebound Musculoskeletal: (-) Edema Lymph: (-) Cervical adenopathy Neuro: Alert, Oriented x3 Psych: Mood and affect Normal Triage Information Reviewed: Yes Vital Signs On Initial Exam: Temp Pulse Resp BP Pulse Ox 97.9 F 57 21 161/90 98 12/05/18 13:32 12/05/18 13:32 12/05/18 13:32 12/05/18 13:32 12/05/18 13:32 Vital Signs Reviewed: Yes Completion Of Physical Exam Limited Due To: Altered Mental Status, Level 5 Diagnostics - Laboratory Result Diagrams: 12/05/18 13:42 12/05/18 13:41 Lab Statement: Any lab studies that have been ordered have been reviewed, and results considered in the medical decision making process. - Radiology CXR Radiology Interpretation Completed By: Radiologist Summary of Radiographic Findings: No superimposed acute cardiopulmonary process on pre-existing chronic interstitial findings with brochiectasis, scarring, and potential regions of mucus plugging and atelectasis or inflammatory infiltrate compared with November 05, 2018 exam. ED Provider has reviewed this report. - CT Brain CT Interpretation Completed By: Radiologist Summary of CT Findings: No intracranial mass or hemorrhage is noted. ED Provider has reviewed this report. - EKG 1330 Cardiac Rate: Bradycardia EKG Rhythm: Sinus Bradycardia - 53 BPM Summary of EKG Findings: NO STEMI 1306 Cardiac Rate: Bradycardia EKG Rhythm: Sinus Bradycardia - 36 BPM 1649 Cardiac Rate: Bradycardia EKG Rhythm: Sinus Bradycardia - 50 BPM Summary of EKG Findings: No STEMI. 1328 Cardiac Rate: Bradycardia EKG Rhythm: Sinus Bradycardia - 53 BPM Summary of EKG Findings: No STEMI Delete2 Summary of EKG Findings: No STEMI Re-Evaluation - Re-Evaluation First Eval Re-Evaluation Time: 16:58 Comment: Per family member, the patient has had delusions for the past couple of weeks. He has had a large appetite and several gastrointestinal problems. Course/Dx - Course Course Of Treatment: This patient is a 63 year old male presenting to [facility] with a chief complaint of possible stroke. Dionna maurer was called at 1317. Brain CT taken at 1320. Examined patient alongside Dr. Valdez, Neurology, at 1334. Brain CT was unremarkable. Per family member, the patient has had delusions for the past couple of weeks. She says he has had a large appetite and several gastrointestinal problems, and that he has gotten worse every day. Patient is currently on drug resistant TB treatment. He was diagnosed with TB two months ago and his family states he contracted it from [place]. 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 The patient currently does not have decision making capacity. The possibilty of large vessel occlusion and major stroke have been taken into account. Patient has improved over time but is still not back to baseline. He started out with aphasia but this has slighly improved and he can same some slurred sentences. - Diagnoses Provider Diagnoses: Dysarthria, Altered mental status, Medication adverse effect, Chest pain, unspecified - Critical Care Time Critical Care Time: 30-74 min - 45 mins Discharge - Sign-Out/Discharge Documenting (check all that apply): Patient Departure - Admission - Discharge Plan Condition: Stable Disposition: ADMITTED TO [facility] Referrals: No Primary Care Phys,NOPCP [Medical Doctor] - - Attestation Statements Document Initiated by Scribe: Yes Documenting Scribe: Rufino Bond Provider For Whom Scribe is Documenting (Include Credential): Fermin Snyder MD Scribe Attestation: IRufino, scribed for Fermin Snyder MD on 12/05/18 at 1931. Status of Scribe Document: Ready
--- OUTSIDE RECORDS SUMMARY | 2018-12-05 13:27 | XMS REPORT | Continuity of Care Document ---
:1955 External Reference #:[id number] Author Name Cora Butcher Care Team Providers Name Role Phone Elise Zeng MD Primary Care Physician Unavailable Payers Date Identification Numbers Payment Provider Subscriber Effective: 2014 Policy Number: [id number] [employer] Darya Mcdaniel Group Number: [id number] [address] Group Name: [id number] [id number] PayID: [id number] Family History Date Family Member(s) Observation Comments General No Current Problems Social History Type Date Description Comments Sex Unknown Tobacco Use Start: Unknown Patient has never smoked Smoking Status Reviewed: 11/29/18 Patient has never smoked Allergies, Adverse Reactions, Alerts Active Allergies Reaction Severity Comments Date Tetracycline rash 11/26/2018 Levofloxacin body pain, sleeplessness 11/26/2018 Medications Active Medications SIG Qnty Indications Ordering Provider Date Linezolid one by mouth 30tabs A15.0 Baljeet D. 11/29/2018 600mg Tablets once a day Katherin Orr Zolpidem Tartrate 1 by mouth at 14tabs Baljeet D. 11/26/2018 5mg bedtime if Katherin Orr Tablets needed for sleep Oxycodone-Acetaminophe take one tablet 30tabs R07.9 Elise Zeng MD 2018 n every 6 hours as 5-325mg Tablets needed for pain Ethambutol HCL 2 by mouth daily Unknown 400mg Tablets Isoniazid 1 tabs by mouth Unknown 300mg Tablets each day Moxifloxacin HCL 1 by mouth every Unknown 400mg day Tablets Pyridoxine HCL 1 by mouth every Unknown 100mg day Tablets Tramadol HCL 1 tablets by Unknown 50mg Tablets mouth every 6 hours as needed pain Ventolin HFA 2 puffs every 4 Unknown 108(90Base) hours as needed mcg/Act Aerosol Ascorbic Acid 1 by mouth every Unknown 500mg day Tablets Multiple Vitamin 1 by mouth every Unknown Tablets day History Medications Ibuprofen 1 by mouth 30tabs R07.9 Baljeet Gagnon 11/26/2018 - 600mg Tablets twice daily as Katherin Orr 11/28/2018 needed for chest pain Pyrazinamide 2 tab by mouth Unknown - 500mg daily 11/26/2018 Tablets Ferrous Sulfate 1 by mouth Unknown - every day 11/13/2018 325(65Fe) mg Tablets Vital Signs Date Vital Result Comment 11/29/2018 11:06am Height 68.5 inches 5'8.50" Weight 97.00 lb Heart Rate 59 /min BP Systolic Sitting 112 mmHg BP Diastolic Sitting 84 mmHg Respiratory Rate 14 /min Body Temperature 96.8 F O2 % BldC Oximetry 98 % BMI (Body Mass Index) 14.5 kg/m2 11/26/2018 3:01pm Height 68.5 inches 5'8.50" Weight 100.38 lb Heart Rate 58 /min BP Systolic Sitting 107 mmHg BP Diastolic Sitting 65 mmHg Body Temperature 96.9 F O2 % BldC Oximetry 95 % BMI (Body Mass Index) 15.0 kg/m2 11/26/2018 8:44am Height 68.5 inches 5'8.50" Weight 97.50 lb Heart Rate 59 /min BP Systolic Sitting 110 mmHg BP Diastolic Sitting 68 mmHg Respiratory Rate 14 /min Body Temperature 96.1 F O2 % BldC Oximetry 98 % BMI (Body Mass Index) 14.6 kg/m2 Procedures Date Code Description Status 11/06/2018 37020 ECHO Transthorasic Realtime 2D W Doppler & Color Flow Hosp Completed Encounters Type Date Location Provider Dx Diagnosis Office Visit 11/29/2018 [facility] Baljeet Gagnon A15.0 Tuberculosis of lung 11:10a Infectious Katherin Orr Diseases R63.4 Abnormal weight loss 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 Office Visit 11/26/2018 8:50a [facility] Baljeet Gagnon A15.0 Tuberculosis of For Infectious Katherin Orr lung Diseases Z79.2 custodial (current) use of antibiotics R07.9 Chest pain, unspecified R53.1 Weakness R63.4 Abnormal weight loss G47.00 Insomnia, unspecified Office Visit 11[facility]07[facility]2018 [facility] of ,raghu Sauceda MD lung Hospitalists Z16.24 Resistance to multiple antibiotics D50.9 Iron deficiency anemia, unspecified E46 Unspecified protein-calorie malnutrition Office Visit 11/06/2018 10:26a [facility] Reyna A15.0 Tuberculosis of Assoc,raghu Sauceda MD lung Hospitalists D50.9 Iron deficiency anemia, unspecified E46 Unspecified protein-calorie malnutrition Office Visit 11/05/2018 10:26a [facility] Christie Joyner DO R53.1 Weakness Assoc Hospitalists R07.9 Chest pain, unspecified Plan of Treatment Future Appointment(s):12/05/2018 1:20 pm - Baljeet Orr M.D. at [facility] Lxlwtmok48/17/2019 - Baljeet Orr M.D.A15.0 Tuberculosis of lungNew Medication:Linezolid 600 mg - one by mouth once a dayComments:ethambutol and moxifloxacin through the weekend, see if any improvement off of INH. Then will add linezolid 600 mg po daily on Sunday (rx sent to [facility]).Follow up:next weekR63.4 Abnormal weight lossComments: will try ensure and med change as xcoseO32.2 custodial (current) use of antibiotics
--- OUTSIDE RECORDS SUMMARY | 2018-12-05 13:27 | XMS REPORT | Continuity of Care Document ---
:1955 External Reference #:[id number] Author Name Veronica Roque Care Team Providers Name Role Phone Elise Zeng MD Primary Care Physician Unavailable Payers Date Identification Numbers Payment Provider Subscriber Effective: 2014 Policy Number: [id number] [facility] Darya Mcdaniel Group Number: [id number] [address] Group Name: [id number] [id number] PayID: [id number] Advance Directives Description No Information Available Problems Description No Information Family History Date Family Member(s) Observation Comments General No Current Problems Social History Type Date Description Comments Sex Unknown Tobacco Use Start: Unknown Patient has never smoked Smoking Status Reviewed: 11/26/18 Patient has never smoked Allergies, Adverse Reactions, Alerts Active Allergies Reaction Severity Comments Date Tetracycline rash 11/26/2018 Levofloxacin body pain, sleeplessness 11/26/2018 Medications Active Medications SIG Qnty Indications Ordering Provider Date Ibuprofen 1 by mouth twice 30tabs R07.9 Baljeet DPriti 11/26/2018 600mg Tablets daily as needed Katherin Orr for chest pain Zolpidem Tartrate 1 by mouth at 14tabs [...] mouth every Unknown Tablets day History Medications Pyrazinamide 2 tab by mouth daily Unknown - 11/26/2018 500mg Tablets Ferrous Sulfate 1 by mouth every day Unknown - 11/13/2018 325(65Fe) mg Tablets Immunizations Description No Information Available Vital Signs Date Vital Result Comment 11/26/2018 3:01pm Height 68.5 inches 5'8.50" Weight [...] % BMI (Body Mass Index) 14.6 kg/m2 Results Description No Information Available Procedures Date Code Description Status 11/06/2018 39006 ECHO Transthorasic Realtime 2D W Doppler & Color Flow Hosp Completed Encounters Type Date Location Provider Dx Diagnosis Office Visit 11/07/2018 [facility] Reyna Sauceda, A15.0 Tuberculosis of 10:28a raghu Call MD lung Hospitalists Z16.24 Resistance to multiple antibiotics D50.9 Iron deficiency anemia, unspecified E46 Unspecified protein-calorie malnutrition Office Visit 11/06/2018 10:26a [facility] Reyna A15.0 Tuberculosis of raghu Call MD lung Hospitalists D50.9 Iron deficiency anemia, unspecified E46 Unspecified protein-calorie malnutrition Office Visit 11/05/2018 10:26a [facility] Christie Joyner DO R53.1 Weakness raghu Call Hospitalists R07.9 Chest pain, unspecified Plan of Treatment Future Appointment(s):11/29/2018 11:10 am - Baljeet Orr M.D. at [facility] Mjsdcsto39/14/2019 - Elise Zeng, MDD50.9 Iron deficiency anemia, unspecifiedNew Orders:hemossure, Ordered: 11/26/18R53.1 WeaknessNew Orders:induced sputum x 3, Scheduled: 12/02/18R07.9 Chest pain, unspecifiedNew Medication:Ibuprofen 600 mg - 1 by mouth twice daily as needed for chest painOxycodone-Acetaminophen 5-325 mg - take one tablet every 6 hours as needed for painNew Orders:induced sputum x 3, Scheduled: 12/02/18
[2018-12-05 13:56] LABS: ABS Eosinophils 0.1 10^3/ul (0-0.6); ABS Lymphocytes 1.7 10^3/ul (1.0-4.8); ABS Monocytes 0.6 10^3/ul (0-0.8); ABS Neutrophils 4.2 10^3/ul (1.5-7.7); Eosinophil % 2.1 %; Hematocrit 43 % (42-52); Hemoglobin 13.3 g/dL (14.0-18.0); Mean Corpuscular HGB Conc 31 g/dL (31-36); Mean Corpuscular Hemoglobin 27 pg (27-31); Mean Corpuscular Volume 85 fL (80-94); Mean Platelet Volume 7.3 fL (7.4-10.4); Platelet Count 340 10^3/uL (150-450); Red Cell Distribution Width 21 % (10.5-15); White Blood Count 6.7 10^3/uL (3.5-10.8)
[2018-12-05 14:00] LABS: Activated Partial Thrombo Time 32.1 seconds (26.0-36.3); INR 0.94 (0.82-1.09)
[2018-12-05] MEDS ORDERED: Thiamine IV* 100 MG, Folic Acid IV* 1 MG, Multiple Vitamin IV ADULT* 10 ML in NS 0.9% 1... IV ONE (14:01)
[2018-12-05 14:17] LABS: ALT 47 U/L (7-52); AST 34 U/L (13-39); Albumin 3.9 g/dL (3.2-5.2); Albumin/Globulin Ratio 1.3 (1-3); Alcohol < 10 mg/dL (<10); Alkaline Phosphatase 71 U/L (34-104); Anion Gap 8 mmol/L (2-11); BUN/Creatinine Ratio 24.6 (8-20); Blood Urea Nitrogen 16 mg/dL (6-24); CO2 Carbon Dioxide 26 mmol/L (22-32); Calcium 9.3 mg/dL (8.6-10.3); Chloride 107 mmol/L (101-111); Cholesterol 175 mg/dL; EGFR African American 150.1 (>60); EGFR Non-African American 124.1 (>60); Globulin 3.1 g/dL (2-4); Glucose 86 mg/dL (70-100); HDL Cholesterol 77.8 mg/dL; LDL Cholesterol 72 mg/dL; Potassium 3.6 mmol/L (3.5-5.0); Sodium 141 mmol/L (135-145); Triglycerides 126 mg/dL
[2018-12-05 15:14] LABS: Folate > 20.00 ng/mL (>3.99)
[2018-12-05 15:18] LABS: Urine Appearance Clear; Urine Bilirubin Negative (Negative); Urine Blood Negative (Negative); Urine Color Straw; Urine Glucose Negative (Negative); Urine Ketones Negative (Negative); Urine Nitrite Negative (Negative); Urine Protein Negative (Negative); Urine Specific Gravity 1.006 (1.010-1.030); Urine Urobilinogen Negative (Negative)
[2018-12-05 16:02] LABS: C Reactive Protein < 1.00 mg/L (<8.01)
--- NOTE | 2018-12-05 16:06 | CONS ---
CC: Dr. Baljeet Paniagua * NEUROLOGY CONSULTATION: DATE OF CONSULT: 12/05/18 REFERRING PHYSICIAN: Dr. Snyder. CHIEF COMPLAINT: Diminished responsiveness, slurred speech. 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 He came here from [place] where he was diagnosed as having recurrent pulmonary tuberculosis. He arrived in [place] in October. 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 He was treated with 4-drug therapy. When he arrived here , he was switched to 2-drug therapy with isoniazid and ethambutol. He has been losing weight for at least 3 months. He has been under a 100 pounds for the last couple of months. He has been progressively getting confused and weak according to his and daughter who arrived a little bit later after his arrival by ambulance. This morning, he had not slept well. His decided to give him an Ambien 5 mg after breakfast to see if he could sleep. She left the house at 9:40 and that is when he got the Ambien. She called at about 12:30 to say she was going to have lunch with their daughter. His voiced seem weak. When she arrived back at the house at around 12:30 or 12: 45, he was minimally responsive. He was mumbling incoherently. They called for an ambulance. He was brought into the emergency room as a code fernandes. One of the ambulance attendants felt the left side of his face was weak. However, she also noted that he is seemed to be moving his arms symmetrically. On first evaluation in the emergency room and subsequently the CT scanner, he was mumbling incoherently. He was looking around and visually regard people, but was extremely lethargic. He was able to move his limb symmetrically, but not consistently to command. He had a CT scan of the brain, which I reviewed and which looks normal other than some atrophy. The official reading was normal as well. Since that initial time, he showed some mild improvement and then he would follow some commands. He was able to articulate a few intelligible words. He presented almost 4-1/2 hours after onset of symptoms and with his generalized dysfunction and lack of focal findings, tPA was not administered. Currently, laboratory studies are pending. Other than tuberculosis, he has generally been in pretty good health over the years. He had surgery for an ulcer many years ago and for a small-bowel obstruction. MEDICATIONS: Medications at home consist of isoniazid 300 mg per day, ethambutol 800 mg per day. He is supposed to be taking vitamins and pyridoxine , but is not taking them. He does take tramadol, but has not take any for about 2 weeks. ALLERGIES: He is said to be allergic to AZITHROMYCIN, LEVOFLOXACIN, and TETRACYCLINE. REVIEW OF SYSTEMS: Pretty much from the family. Again, he has been losing weight, he has been getting confused, he has been having very poor sleep. He tried Ambien about 2 weeks ago according to his and he felt ill and very confused the following day. They did not try it again until this morning. He has not had a cough. According to his daughter and , he is currently considered to be noninfectious. A public health nurse comes out weekly and does not wear a mask. He has seen Dr. Baljeet Paniagua in Infectious Diseases consultation and apparently had a followup visit scheduled for today. PHYSICAL EXAM: On examination, he looks cachectic. Blood pressures running about 140/100, heart rate in the 50s and in sinus, temperature 97.9. Respiratory rate is 21 and oxygen saturation is 98% on room air. Skin is warm and dry. Neck is supple. Heart tones are normal. There are no cervical bruits. Oral mucosa is dry. Neurologically, he is sleepy, but arouses to voice. He mumbles incoherently initially, but as the evaluation proceeds, he is able to articulate that he is in the hospital, denies headache. Pupils react equally from 3 down to 2 mm. The left fundus reveals a sharp optic disk. Eye movements are full, but inconsistent. He responds to visual threat bilaterally. Facial musculature is symmetric. Facial sensation to nasal tickle is symmetric. He protrudes his tongue very weakly in the midline, just barely passed the teeth. Speech is dysarthric. Motor exam reveals diffuse decreased muscle mass. There is no spasticity. He is able to raise the arms up, but not hold them up for long. His weakness is symmetrical however. In the lower extremities, he intermittently will flex the right more than the left leg, but does not follow commands. He has plantar withdrawal responses bilaterally and he reflexes and trace biceps reflexes. There is no myoclonus. I cannot get him to follow commands to do a finger-to- nose or [id number] maneuver. DIAGNOSTIC STUDIES/LAB DATA: Laboratory data includes the CT of the brain described above. His EKG reveals a short DE interval with a sinus bradycardia. Laboratories back so far include a CBC with a hemoglobin of 13.3, MCV 85, platelet count 340,000, white blood cell count 6.7. Chemistry profile is back and notable for a normal chemistry profile. Glucose is 86, electrolytes are normal. Cholesterol today is 175 and LDL 72. Ammonia level is normal at 51 and liver enzymes are normal as well. IMPRESSION AND PLAN: Impression is that of lethargy and confusion after Ambien. He has also been confused and weak over at least the last month. He is being treated for reactivated pulmonary tuberculosis. I do not see any evidence currently that he has had a transient ischemic attack or cerebral infarction in spite of the observation by the EMT that he might have had some facial weakness. His NIH score is 12. He is out of the window for tPA and he does not have signs or clearly symptoms of a cerebrovascular event. I do not recommend getting a CT angiogram until we at least get labs back and see how he does clinically as he does not have symptoms or signs of a large vessel occlusion. We will check additional blood tests for his nutritional status including vitamins. I have recommended Dr. Snyder to give him a banana bag to try to supplement vitamins while we are waiting for results. If he gradually recovers , then I do not think he will need an MRI scan or EEG. I will continue to follow him along with you. [id number]/[facility] #: [id number] [facility] CENTERMason
[2018-12-05] MEDS ORDERED: Aspirin 81 mg CHEW TAB* 81 MG TAB.CHEW PO ONE (16:51)
[2018-12-05] MEDS ORDERED: Iohexol 350* (CONTRAST) 500 ML MDV IV ONE (17:25)
[2018-12-05] MEDS ORDERED: Ondansetron INJ* 2 MG/ML VIAL IV PRN (20:30)
[2018-12-05] MEDS ORDERED: Acetaminophen TAB* 325 MG PO PRN (20:30)
[2018-12-05] MEDS ORDERED: Al Hydrox/Mg Hydrox/Simet LIQ* 30 ML UDC PO PRN (20:30)
[2018-12-05] MEDS ORDERED: Albuterol HFA INHALER* 8 gm MDI INH PRN (20:35)
[2018-12-05 20:57] LABS: Prealbumin 24 mg/dL (18-38)
[2018-12-05] MEDS ORDERED: Enoxaparin(*) 40 MG/0.4 ML SYR SUBCUT SCH (21:00)
[2018-12-05 21:13] LABS: TSH (Thyroid Stimulating Horm) 6.92 mcIU/mL (0.34-5.60)
--- NOTE | 2018-12-05 23:01 | HP ---
CC: Dr. Elise Zeng; Baljeet Paniagua MD * HISTORY AND PHYSICAL: DATE OF ADMISSION: 12/05/18 TIME OF EVALUATION: 1999 PRIMARY CARE PHYSICIAN: Dr. Elise Zeng. CHIEF COMPLAINT: Altered mental status with subsided chest pain. HISTORY OF PRESENT ILLNESS: This is a 63-year-old male who recently relocated after being diagnosed with reactivated tuberculosis, on treatment, who per the family did not sleep well last night. He is not being doing very well and he decided to take an Ambien this morning. The went out and she came back around 12:30, when she found him as eyes were glazed over, he was minimally responsive, and his mouth was frozen. They did not notice any asymmetry but they could not get him to talk, so they called EMS. There was question by EMS that there was a left- sided facial droop. Dionna Bruce was called. Then, the patient was evaluated in the emergency room. Dr. Valdez evaluated the patient this afternoon. They felt that his confusion and aphasia were most likely related to his Ambien and did not feel this was TIA or CVA issue. The family has refused a CTA of the head and neck. Dr. Valdez also thought he did not need MRI nor an EEG as he was clinically improving. On my encounter, he has no aphasia, he has no neurologic symptoms. He is alert and oriented. There are concerns about worsening left-sided chest pain that seems to be getting worse. The shortness of breath has persisted. He is still getting treatment for TB. They are not sure if he is getting better, if he is on the right medication and they are very upset, because he is very sensitive to medications and he has lot of left-sided chest pain and he has tried tramadol, but they think it makes the chest pain worse. He has tried ibuprofen, it makes the stomach burn. We discussed low dose oxycodone but they do not want to try that. I discussed working him up for acute coronary syndrome. They did not want to do any further testing. They are only interested in talking with Dr. Paniagua who they feel that the medication he takes is causing him to be this debilitated with his pain, shortness of breath. He also is often confused. He gets agitated and depressed. States he is often suicidal, wants to overdose. They state he paces and circles, writes the same thing over and over and perseverates often. Currently, the patient denies any suicidal ideation. No homicidal ideation. He still continues to have left-sided chest pain. He is not orthopneic. No coughing, no fevers, no chills. He does intermittently get a headache with a sore throat. Otherwise, review of systems is negative. In the emergency room, the patient had labs, imaging. He was given 1 L of fluid and referred to the hospitalist service for further evaluation. PAST MEDICAL HISTORY: 1. 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 2. Iron deficiency anemia. 3. Malnourished. MEDICATIONS: 1. Vitamin C 1 tab daily. 2. Albuterol inhaler 2 puffs every 4 hours as needed. 3. Vitamin B6 100 mg daily. 4. Multivitamin daily. 5. Isoniazid 300 mg daily. 6. Ethambutol 800 mg daily. ALLERGIES: AZITHROMYCIN, LEVOFLOXACIN, TETRACYCLINE. FAMILY HISTORY: Parents both secondary to old age. SOCIAL HISTORY: The patient lives at home with his . He is independent of his ADLs. He ambulates independently. He recently relocated from [place]. No history of tobacco or illicit drug use. His is his healthcare proxy. He has 2 grown children. Code status is full code. REVIEW OF SYSTEMS: A 14-point review of systems as mentioned in the HPI, otherwise negative. PHYSICAL EXAMINATION GENERAL: In no acute distress. Resting comfortably. Awakes easily. His and the daughter at the bedside. VITAL SIGNS: Temp is 97.9, pulse rate is 49, respiratory rate is 24, oxygen saturation 99% on room air, blood pressure 141/81. HEENT: Head: Normocephalic. Pupils are equal and reactive. Anicteric. Oropharynx: Mucous membranes are dry. NECK: Supple. No lymphadenopathy. RESPIRATORY: Diminished breath sounds. No wheezes, rhonchi or rales. CARDIAC: Bradycardia. Soft systolic murmur heard throughout. ABDOMEN: Soft, nontender, nondistended. EXTREMITIES: No clubbing, cyanosis, or edema. +1 DPs. NEUROLOGIC: The patient is alert and oriented x3. Cranial nerves II through XII intact. No aphasia. Negative pronator drift. Upper and lower muscle strength equal and symmetric. DIAGNOSTIC STUDIES/LABORATORY DATA: White count 6.7, hemoglobin 13.3, hematocrit 43, platelets 340. INR is 0.94. Sodium 141, potassium 3.6, chloride 107, bicarb 26. BUN 16, creatinine 0.65. Troponin is 0. CRP is less than 1. LDL is 72. B12 is 1254. Ammonia is 51. Lactic acid is 1.8. Alcohol less than 10. Radiographic Data: Head CT, no intracranial mass or hemorrhage. Chest x-ray, no superimposed acute pulmonary process on preexisting chronic interstitial findings with bronchiectasis, scarring, potential mucus plugging and atelectasis or inflammatory inflammatory compared to 11/05/18. EKG showed sinus bradycardia. ASSESSMENT: This is a 63-year-old male with reactivation tuberculosis, on treatment, who presents to the emergency room with aphasia in the setting of taking Ambien and left-sided chest pain. 1. Aphasia. Assessment: The patient's altered mental status has resolved. I suspect his symptoms were related to the Ambien that he took. The family states he took it 2 weeks ago and he was very groggy and out of it for the following next day. Neurology saw him. They did not feel further workup was indicated if he continued to improve. Family has also refused any further workup including CTA of the head and neck and aspirin. We will continue him on neuro checks q.4 hours overnight and no further neuro workup is indicated. 2. Left-sided chest pain. Assessment: I suspect this is related to his tuberculosis and his pulmonary disease, but it is not unreasonable to do a stress test and trend his troponin. The family has refused a second blood draw for troponin and they have also refused a stress test. He did have an echocardiogram last month and that was relatively unremarkable. 3. In terms of pain, it sounds that he is very sensitive to medications including tramadol and ibuprofen. We will continue him on Tylenol. I discussed a trial of a low dose of oxycodone but they do not want to try anything at this point. 4. Chronic medical problems. Reactive tuberculosis. We will continue his isoniazid and ethambutol. They are requesting to speak with Dr. Paniagua. We will plan a consult for him to follow up with him. 5. Confusion, agitation, and depression. The patient with multiple mental health issues at home, concerning that they feel is related to side effects of his medications, but this appears more likely a major depressive disorder with some paranoia, maybe cognitive impairment. I have consulted Psychiatry. 6. FEN: Continue the patient on a regular diet. 7. DVT prophylaxis: The patient scores moderate risk. Place him on Lovenox subcu daily. 8. Code status: Full code. TIME SPENT: Greater than 45 minutes was spent doing the history and physical, more than half the time spent in direct patient contact. [id number]/[facility] #: [id number] MTDD
[2018-12-06 00:11] LABS: Free T4 1.13 ng/dL (0.61-1.12)
[2018-12-06] MEDS ORDERED: Multivitamins/Minerals TAB PO SCH (09:00)
[2018-12-06] MEDS ORDERED: Ascorbic Acid TAB* 500 MG PO SCH (09:00)
[2018-12-06] MEDS ORDERED: ISONIAZID 300 MG PO SCH (09:00)
[2018-12-06] MEDS ORDERED: ETHAMBUTOL 400 MG PO SCH (09:00)
[2018-12-06] MEDS ORDERED: Pyridoxine TAB* 50 MG PO SCH (09:00)
[2018-12-06] MEDS ORDERED: Ferrous Sulfate TAB* 325 MG PO SCH (09:00)
--- NOTE | 2018-12-06 11:57 | CONS ---
CONSULTATION REPORT: DATE OF CONSULT: 12/06/18 REQUESTING PHYSICIAN: Dr. Joyner. CONSULTING SERVICE: Infectious Disease. REASON FOR CONSULTATION: Encephalopathy. IMPRESSION: 1. Encephalopathy. Initially, a question of cerebrovascular accident, which has been at this point ruled out by Dr. Valdez. He is back to his baseline mental status. Interim history is that yesterday morning he took an Ambien, 5 or 6 Benadryl, and a few other [id number] sleep aids after his had gone because he really wanted to get some sleep. When she returned, he was not himself. I suspect his encephalopathy was due to polypharmacy of sleep aids. 2. Pulmonary tuberculosis with rifampin resistance, question of multidrug- resistance. 3. Medication side effects. 4. Anemia. 5. Weight loss, which is stabilized. 6. Allergies to AZITHROMYCIN, TETRACYCLINE, subjective symptoms with LEVAQUIN, PYRAZINAMIDE and MOXIFLOXACIN. RECOMMENDATION: We will continue isoniazid and ethambutol for his TB. I reinforced with the family that I do want them to start linezolid 600 mg by mouth daily as a third agent. I discussed with the health department; they are going to arrange to start that on Sunday. HISTORY OF PRESENT ILLNESS: This is a 63-year-old man diagnosed with pulmonary tuberculosis in [place]. He started treatment in September and he had weight loss, chest pain, and dyspnea before he started treatment. He has had a number of issues with treatment since then. His family brought him back to [place] at the end of October. He stopped pyrazinamide because of arthralgias; those have resolved. He has refused to take further fluoroquinolone therapy because of concern about side effects. He is continued on isoniazid and ethambutol. He was to have started linezolid last week after I saw him in the office; he decided not to do that. He had a concern about serotonin syndrome as well as drug-drug interactions. He came to the hospital yesterday by ambulance after his found him to be not acting himself. Today, he reports he took an Ambien yesterday morning, she left the house, and he took a handful of other sleep medicines including a few Benadryl, he thinks up to seven 25 mg tablets. He was not as himself. EMS was called. One of the ambulance attendants thought he had a facial droop that was not confirmed in the ER. He had a brain CT that showed no acute changes and Dr. Valdez did not feel he needed further workup as his mental status was improving and he had no focal deficits. Today, he and his agree he is back to his usual self. He did get some sleep last night. He has had no fevers while he is here. He has ongoing left-sided chest pain, subjective dyspnea at rest and exertion and the concern that all of his medicines are killing him. PAST MEDICAL HISTORY: 1. Pulmonary tuberculosis, diagnosed by bronchoscopy and none by sputum. He was smear positive; at 2 weeks, he was smear negative. 2. Anemia. 3. Weight loss. MEDICATIONS: 1. Tylenol. 2. Albuterol. 3. Enoxaparin. 4. Ethambutol 800 mg daily. 5. Ferrous sulfate. 6. Isoniazid 300 mg daily. 7. Pyridoxine. ALLERGIES: AZITHROMYCIN, LEVAQUIN, TETRACYCLINE, MOXIFLOXACIN, PYRAZINAMIDE. FAMILY HISTORY: No current infections. No one else with TB. SOCIAL HISTORY: He lives in [place] with his . 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 He is from [place] originally. REVIEW OF SYSTEMS: All negative except as noted above to 14-point review. PHYSICAL EXAM: Vital Signs: Temperature 37, heart rate 50, respiratory rate 16 , blood pressure 123/66, oxygen saturation 99% on room air. In general, he is awake, not in distress. Neurologic: He is oriented x3. He answers questions appropriately. He follows commands. Moves all of his extremities. HEENT: There is no conjunctival hemorrhage. Oropharynx without lesions. Neck: Supple without mass. Heart: Regular rate and rhythm without murmurs, rubs or gallops. Lungs: Clear to auscultation bilaterally. Abdomen: Soft, nontender, nondistended. Bowel sounds present. Skin: There is no rash or splinter hemorrhages. Musculoskeletal: There is no spine tenderness to palpation or joint synovitis. DIAGNOSTIC STUDIES/LAB DATA: Chest x-ray: No acute changes, unchanged infiltrates when compared to 11/05/18 x-ray. White blood cell count 6; hemoglobin 13, which is improved from October 2018 when it was 10; platelets are 340. Creatinine 0.6, CRP 0, ALT 47. Brain CT: No acute changes without hemorrhage or mass. Please see impressions and recommendations outlined above, which I have discussed with [facility] and the patient's nurse, and we will discuss with his hospital provider. Thank you for asking me to see Mr. Mcdaniel in consultation. [id number]/[facility] #: [id number] MTDMason
[2018-12-06 16:41] VITALS: BP 106/55
--- NOTE | 2018-12-06 18:38 | CONS ---
CC: Dr. Paniagua* NEUROLOGY FOLLOWUP CONSULTATION: DATE OF FOLLOWUP: 12/06/18 LOCATION: He is an inpatient in room 448. HOSPITALIST: Dr. Herrmann. CHIEF COMPLAINT: Confusion, dysarthria. INTERVAL HISTORY: Since yesterday, Mr. Mcdaniel has recovered. He admits to taking multiple diphenhydramine after he took the Ambien after his left yesterday morning. He is not sure how many, but it sounds as though he might have taken 5 or 6. He does not remember being in the emergency room. He feels well now other than some chronic retrosternal pain. MEDICATIONS: Reviewed and he is on: 1. Isoniazid 300 mg p.o. daily. 2. Ferrous sulfate 325 mg p.o. daily. 3. Ethambutol 800 mg p.o. daily. 4. Pyridoxine 100 mg p.o. daily. 5. Multivitamins 1 p.o. daily. 6. Lovenox 24 mg subcutaneous q.24 hours. 7. Ascorbic acid 500 mg p.o. daily. 8. Albuterol inhaler 2 puffs q.4 hours as needed. PHYSICAL EXAM: On exam, he is very thin and underweight. Temperature 98.4, blood pressure 106/55, heart rate in the 50s and irregular. Respiratory rate is 16 and oxygen saturation is 99% on room air. Lungs are clear bilaterally. He is alert. Speech is soft, but clear. He is oriented to person, place, and time currently, but does not recall when I saw him in the emergency room. IMPRESSION AND PLAN: Impression is that of toxic delirium from diphenhydramine plus possibly Ambien. He is going to be discharged home. I recommended that he discuss his insomnia with his primary care provider. His family indicates he might have some obsessive-compulsive issues and depression, so perhaps trazodone would be a good choice for him at bedtime. I would not need to see him in followup as an outpatient unless new problems develop. [id number]/[facility] #: [id number] TURNER
--- NOTE | 2018-12-06 23:31 | DS ---
CC: Dr. Espinoza Valdez; Dr. Baljeet Paniagua; Dr. Elise Zeng DISCHARGE SUMMARY: DATE OF ADMISSION: 12/05/18 DATE OF DISCHARGE: 12/06/18 PRIMARY CARE PHYSICIAN: Dr. Elise Zeng. FINAL DISCHARGE DIAGNOSES: 1. Altered mental status with expressive aphasia secondary to unintentional drug overdose with Ambie n. 2. Chest pain, left-sided, atypical, suspect related to his pulmonary tuberculosis. 3. Malnutrition. The patient was seen in the emergency room on 12/05/16 after his family brought him to the ER to be e valuated, stating that he has been difficulty talking or expressing his speech. Apparently, his gave him Ambien the morning of the admission as he had difficulty sleeping the night before and when she went to check back on him around 12:30, he was very minimally responsive. They could not have h im indulge in a meaningful conversation, hence they activated EMS and brought him to the emergency ro om. Dionna fernandes was called due to questionable left-sided droop and he was seen and evaluated in the e mergency room by Dr. Valdez, who reported that his altered sensation was most likely due to the Ambi en and recommended CT scan of head in the ER, where initially the family declined it when it was offe red by the ER attending and finally approved it when he was seen by Neurology. CT scan of the brain was unremarkable. He was admitted to the medical service for observation given his altered sensation and the chest pain. His cardiac enzymes came back negative. EKG unremarkable. On the following mo rning, the patient was back to his baseline from mental status gunter. Given his pulmonary tuberculosi s, they asked to see Dr. Paniagua, who saw him and evaluated him today in-house and recommended to co ntinue his outpatient regimen for the TB, which is multidrug resistant, to continue with isoniazid an d ethambutol and with a potential starting linezolid 600 mg daily as a third agent. The patient was seen and evaluated and deemed stable for discharge to home today. DISCHARGE PHYSICAL EXAMINATION: Vital Signs: Temperature 98.4, pulse 53, respiratory rate 16, stati ng 99%, blood pressure 106/55. Generally, he is awake, alert, cachetic, slightly depressed, flat aff ect, but he has good speech, tolerated p.o. well, ambulating. Head and Neck: Normocephalic, promine nt zygotic muscle feature. Lungs with good airflow. Abdomen: Positive bowel sounds, soft. DISCHARGE MEDICATIONS: The patient to resume home medication. 1. Albuterol. 2. Multivitamin. 3. Vitamin C 500 daily. 4. Ethambutol 800 mg daily. 5. Iodine 325 daily. 6. Isoniazid 300 mg daily. 7. Vitamin B6 100 mg daily. 8. Tramadol 50 p.r.n. DISCHARGE RECOMMENDATIONS: 1. Follow up with primary care in 1 to 2 weeks. 2. Follow up with Dr. Paniagua in 1 to 2 weeks. INPATIENT CONSULTATION: 1. Neurology by Dr. Valdez. 2. Infectious Disease, Dr. Paniagua. DIAGNOSTIC TESTING: CT scan of the brain while in the emergency room, which was unremarkable. Chest x-ray: No acute finding other than the previously seen chronic interstitial finding of bronchiectas is and scaring, similar when compared to 11/05/18. [id number]/[facility] #: [id number]
== END 2018-12-06 18:00 | disposition home or self-care (01) ==
LOC: ED 13:19 → MEDTELE 21:22
PROVIDERS: ADMIT Pediatrics; ATTEND Internal Medicine
DX: T42.6X1A Poisoning by other antiepileptic and sedative-hypnotic drugs, accidental (unintentional), initial encounter (principal); R41.82 Altered mental status, unspecified; R47.01 Aphasia; R07.89 Other chest pain; E46 Unspecified protein-calorie malnutrition; Z88.8 Allergy status to other drugs, medicaments and biological substances
CPT/HCPCS: 36415; 70450; 71045; 80053; 80061; 80320; 81003; 82140; 82306; 82542; 82607; 82746; 83605; 84134; 84207; 84425; 84439; 84443; 84484; 85025; 85610; 85730; 86140; 93005; 96361; 96365; 99285; A9270-GY; G0378; G0480; J1650; J3411

== ENCOUNTER 2018-12-25 13:24 | Inpatient (IN) | payer BC ==
[~2018-12-25 13:24] MED LIST: NS 0.9% 1000 ML** 1,000 ML IV ONE
--- NOTE | 2018-12-25 13:30 | ED ---
Altered Mental Status - HPI Summary HPI Summary: Patient is a 63 y/o M presenting to ED via EMS for tramadol overdose and AMS. Patient had breakfast with his this morning. Later in the day, towards late morning/early afternoon, patient was found unresponsive by . It is believed that the patient had taken an unknown quantity of tramadol, as two empty tramadol pill bottles were found. Prescriptions were filled 11/01/18 and . The is unsure how many tablets were in the bottles, but she states that the bottles were not empty previously. EMS gave patient narcan x2 and reports patient was sinus on monitor, 74-84 BPM, resp rate of 14-16, o2 93 on RA , 99 on o2, BP of 170/100. No recent illness or trauma is reported. At present, patient is alert but not oriented. Level 5 caveat, AMS. Home medications and allergies are reviewed. - History Of Current Complaint Stated Complaint: AMS POSSIBLE OVERDOSE Hx Obtained From: EMS Hx From Patient Unobtainable Due To: Altered Mental Status Onset/Duration: Still Present Timing: Constant Severity Currently: None Character: Responsiveness - AMS Aggravating Factor(s): Nothing Alleviating Factor(s): Nothing - Allergies/Home Medications Allergies/Adverse Reactions: Allergies Allergy/AdvReac Type Severity Reaction Status Date / Time azithromycin Allergy Unknown Verified 11/05/18 11:34 Reaction Details levofloxacin Allergy Unknown Verified 11/05/18 11:34 Reaction Details Tetracyclines Allergy Unknown Verified 11/05/18 11:34 Reaction Details Home Medications: Home Medications Ascorbic Acid TAB* [Vitamin C TAB*] 500 mg PO DAILY 12/25/18 [History Confirmed 12/25/18] Linezolid TAB* [Zyvox 600 MG TAB*] 600 mg PO DAILY 12/25/18 [History Confirmed 12/25/18] PMH/Surg Hx/FS Hx/Imm Hx Endocrine/Hematology History: Denies: Hx Diabetes Cardiovascular History: Denies: Hx Hypertension GI History: Reports: Other GI Disorders - peptic ulcers History: Denies: Hx Renal Disease Sensory History: Reports: Hx Contacts or Glasses Denies: Hx Hearing Aid, Hx Hearing Problem Opthamlomology History: Reports: Hx Contacts or Glasses - Surgical History Surgery Procedure, Year, and Place: 2/3 stomach removed Infectious Disease History: Reports: Hx Tuberculosis - Family History Known Family History: Negative: Hypertension, Diabetes - Social History Alcohol Use: None Hx Substance Use: No Substance Use Type: Reports: None Hx Tobacco Use: No Smoking Status (MU): Never Smoked Tobacco Review of Systems - ROS Summary Review of Systems Summary: LEVEL 5 CAVEAT, AMS Negative: Fever - on vitals, temp is 96.9 F Psychological: Other - POSITIVE - AMS All Other Systems Reviewed And Are Negative: No - Comments Additional Review of Systems Comments: LEVEL 5 CAVEAT, AMS Physical Exam - Summary Physical Exam Summary: VITAL SIGNS: Reviewed. GENERAL: Patient is a well-developed and nourished male who is lying comfortable in the stretcher. Patient is not in any acute respiratory distress. He is maintaining his own airway. Lethargic and thin-appearing. Dry oral mucosa and poor dental hygiene. HEAD AND FACE: No signs of trauma. No ecchymosis, hematomas or skull depressions. No sinus tenderness. EYES: PERRLA, EOMI x 2, No injected conjunctiva, no nystagmus. EARS: Hearing grossly intact. Ear canals and tympanic membranes are within normal limits. MOUTH: Oropharynx within normal limits. NECK: Supple, trachea is midline, no adenopathy, no JVD, no carotid bruit, no c- spine tenderness, neck with full ROM. CHEST: Symmetric, no tenderness at palpation LUNGS: Clear to auscultation bilaterally. No wheezing or crackles. CVS: Regular rate and rhythm, S1 and S2 present, no murmurs or gallops appreciated. ABDOMEN: Soft, non-tender. No signs of distention. No rebound no guarding, and no masses palpated. Bowel sounds are normal. EXTREMITIES: FROM in all major joints, no edema, no cyanosis or clubbing. NEURO: Alert, but confused. Level 5 caveat, AMS. SKIN: Dry and warm. Triage Information Reviewed: Yes Vital Signs On Initial Exam: Initial Vitals Temp Pulse Resp BP Pulse Ox 96.9 F 63 16 162/100 99 12/25/18 13:25 12/25/18 13:25 12/25/18 13:25 12/25/18 13:25 12/25/18 13:25 Vital Signs Reviewed: Yes Diagnostics - Laboratory Result Diagrams: 12/25/18 13:42 12/25/18 13:42 Lab Statement: Any lab studies that have been ordered have been reviewed, and results considered in the medical decision making process. - EKG 1331 Cardiac Rate: NL - rate of 73 BPM EKG Rhythm: Sinus Rhythm EKG Comparison: No Significant Change - no significant change compared to EKG Summary of EKG Findings: EKG showed sinus rhythm with rate of 73 BPM, normal axis, no ST elevations, no significant change compared to 12/05/18 EKG Re-Evaluation - Re-Evaluation First Eval Re-Evaluation Time: 13:20 Comment: is present in ED. She estimates that the patient took around 55 pills of tramadol, 50 mg each. She notes that she left the patient at around 0730 and returned to the house at 1230 and found him unresponsive. While in room , patient had a seizure. Ativan 1 mg IV given. Second Eval Re-Evaluation Time: 13:52 Comment: Poison control was contacted, they recommends bicarb and to keep patient on nuclear monitoring technician. Second EKG should be obtained after bicarb. If patient has another seizure, patient should be given vitamin B6. Third Eval Re-Evaluation Time: 14:26 Comment: CO2 monitoring applied per poison control recommendation. Altered Mental Statu Course/Dx - Course Assessment/Plan: Patient is a 63 y/o M presenting to ED via EMS for tramadol overdose and AMS. Patient had breakfast with his this morning. Later in the day, towards late morning/early afternoon, patient was found unresponsive by . It is believed that the patient had taken an unknown quantity of tramadol, as two empty tramadol pill bottles were found. Prescriptions were filled 11/01/18 and 11/10/17. The is unsure how many tablets were in the bottles, but she states that the bottles were not empty previously. EMS gave patient narcan x2 and reports patient was sinus on monitor, 74-84 BPM, resp rate of 14-16, o2 93 on RA, 99 on o2, BP of 170/100. No recent illness or trauma is reported. At present, patient is alert but not oriented. Past medical history significant for. 1- Drug resistant tuberculosis. 2- Iron deficiency anemia. 3- Malnutrition. In the ED course we placed the patient on a nuclear monitoring technician, 2 IV accesses were obtained. Blood test results wbcs of 20.6, hemoglobin 13.7, hematocrit 43 platelets is 405. CMP without any significant abnormality except for potassium level of 3.2, carbon dioxide 19, anion gap 18, glucose 168, and lactic acid 12.6. EKG shows a normal sinus rhythm without ST elevations. Patient was given potassium chloride IV. I discussed the case with poison control and they recommended for the patient to be placed in a nuclear monitoring technician, seizure precautions, sodium bicarbonate 1-2 milliequivalents per KG, magnesium 2 g IV. At this point I discussed my physical exam and findings with and Dr. Kaye from the ICU who accepted the patient for admission. Patient continues to maintain his airway, he is having 2 L of oxygen and he is saturating 100% on room air. Dr. Kaye agrees for not intubating the patient at this time. - Diagnoses Provider Diagnoses: Overdose - Provider Notifications Discussed Care Of Patient With: Rhoda Kaye Time Discussed With Above Provider: 14:23 Instructed by Provider To: Other - Patient's case was discussed with Dr. Kaye , Dr. Kaye accepts for admission to ICU. - Critical Care Time Critical Care Time: 75-104 min Discharge - Sign-Out/Discharge Documenting (check all that apply): Patient Departure - admit All imaging exams completed and their final reports reviewed: Yes Patient Received Moderate/Deep Sedation with Procedure: No - Discharge Plan Condition: Fair Disposition: ADMITTED TO [facility] - Attestation Statements Document Initiated by Scribe: Yes Documenting Scribe: RUMA CEDILLO Provider For Whom Rama is Documenting (Include Credential): TRENA BLACK MD Scribe Attestation: RUMA Friedman, scribed for TRENA BLACK MD on 12/25/18 at 1559. Status of Scribe Document: Ready
[2018-12-25] MEDS ORDERED: Lorazepam PYXIS KEY ONE (13:32)
[2018-12-25] MEDS ORDERED: LORazepam INJ* 2 MG/ML 1 ML VIAL ONE (13:33)
[2018-12-25] MEDS ORDERED: LORazepam INJ* 2 MG/ML 1 ML VIAL IV PUSH ONE (13:36)
[2018-12-25] MEDS ORDERED: Lorazepam PYXIS KEY PRN (13:36)
[2018-12-25 13:52] LABS: ABS Basophils 0.1 10^3/ul (0-0.2); ABS Lymphocytes 0.7 10^3/ul (1.0-4.8); ABS Monocytes 0.7 10^3/ul (0-0.8); ABS Neutrophils 19.1 10^3/ul (1.5-7.7); Hematocrit 43 % (42-52); Hemoglobin 13.7 g/dL (14.0-18.0); Lymphocyte % 3.4 %; Mean Corpuscular HGB Conc 32 g/dL (31-36); Mean Corpuscular Hemoglobin 28 pg (27-31); Mean Corpuscular Volume 88 fL (80-94); Mean Platelet Volume 7.1 fL (7.4-10.4); Platelet Count 405 10^3/uL (150-450); Red Blood Count 4.91 10^6 /uL (4.18-5.48); Red Cell Distribution Width 20 % (10-15); White Blood Count 20.6 10^3/uL (3.5-10.8)
[2018-12-25 14:11] LABS: ALT 47 U/L (7-52); AST 37 U/L (13-39); Albumin 4.1 g/dL (3.2-5.2); Albumin/Globulin Ratio 1.3 (1-3); Alkaline Phosphatase 80 U/L (34-104); Anion Gap 18 mmol/L (2-11); Blood Urea Nitrogen 17 mg/dL (6-24); CO2 Carbon Dioxide 19 mmol/L (22-32); Calcium 8.8 mg/dL (8.6-10.3); Chloride 102 mmol/L (101-111); Creatine Kinase 82 U/L (10-223); EGFR African American 116.5 (>60); EGFR Non-African American 96.2 (>60); Globulin 3.1 g/dL (2-4); Glucose 168 mg/dL (70-100); Potassium 3.2 mmol/L (3.5-5.0); Sodium 139 mmol/L (135-145); Total Protein 7.2 g/dL (6.4-8.9)
[2018-12-25] MEDS ORDERED: Magnesium Sulfate 2 GM IV* 2 GM/50 ML BAG IVPB ONE (14:22)
[2018-12-25 14:52] LABS: Acetaminophen < 15 mcg/mL; Alcohol < 10 mg/dL (<10); Salicylate < 2.50 mg/dL (<30)
[2018-12-25 15:07] LABS: TSH (Thyroid Stimulating Horm) 4.42 mcIU/mL (0.34-5.60)
--- NOTE | 2018-12-25 15:22 | HP ---
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 Per family he was last seen normal at 7:30am at which time his had gone in to work. When she was unable to reach him by phone she came home and found him unresponsive at 1pm. He had two empty tramadol bottles next to him. It is thought that he could have taken as much as 55 tabs of 50 mg Tramadol. He received narcan by EMS On evaluation in the ED he is hemodynamically stable. He is arousable and protecting airway but not oriented. WBC elevated at 20.6. During ED stay the patient had a witnessed tonic clonic seizure which resolved after 1mg Ativan. Poison control contacted and recommending bicarbonate, magnsium and cardiac monitoring. He is admitted to ICU for close montioring. - Past Medical History Gastrointestinal: Peptic ulcer disease, Other - malnutrition Heme/Onc: Iron deficiency anemia Infectious Disease: Other - TB - Past Surgical History Past Surgical History: Other - partial gastrectomy - Past Social History Smoke: No Alcohol: None Drugs: None Lives: With Family Review of Systems - Review of Systems Neurological: Positive: Other Other: unable to obtain secondary to patient's mental status - Medications/Allergies Allergies/Adverse Reactions: Allergies Allergy/AdvReac Type Severity Reaction Status Date / Time azithromycin Allergy Unknown Verified 11/05/18 11:34 Reaction Details levofloxacin Allergy Unknown Verified 11/05/18 11:34 Reaction Details Tetracyclines Allergy Unknown Verified 11/05/18 11:34 Reaction Details Medications: Current Medications Enoxaparin Sodium (Lovenox(*)) 40 mg SUBCUT Q24H [facility] Sodium Bicarbonate 50 meq/ (Dextrose) 250 mls @ 125 mls/hr IV ONCE ONE Stop: 12/25/18 17:29 Magnesium Sulfate (Magnesium Sulfate 2 Gm Iv*) 2 gm in 50 mls @ 50 mls/hr IVPB ONCE ONE Stop: 12/25/18 15:21 Last Admin: 12/25/18 14:30 Dose: 50 mls/hr Miscellaneous (Ativan Pyxis Hannah) 1 ea N/A .ATIVAN IV HANNAH PRN PRN Reason: PYXIS HANNAH Exam - Exam Vital Signs: Vital Signs (72 hours) 12/25/18 12/25/18 12/25/18 13:25 13:33 13:34 Temperature 96.9 F Pulse Rate 63 70 Respiratory 16 14 22 Rate Blood Pressure 162/100 126/77 (mmHg) O2 Sat by Pulse 99 Oximetry 12/25/18 12/25/18 12/25/18 13:40 13:43 13:47 Temperature Pulse Rate 70 71 68 Respiratory 19 15 11 Rate Blood Pressure 108/68 103/67 103/71 (mmHg) O2 Sat by Pulse 100 100 100 Oximetry 12/25/18 12/25/18 12/25/18 13:52 13:57 14:00 Temperature Pulse Rate 69 67 66 Respiratory 15 16 14 Rate Blood Pressure 103/70 106/70 (mmHg) O2 Sat by Pulse 100 100 100 Oximetry 12/25/18 12/25/18 12/25/18 14:02 14:14 14:24 Temperature Pulse Rate 65 63 61 Respiratory 14 13 Rate Blood Pressure 109/69 115/78 118/81 (mmHg) O2 Sat by Pulse 100 100 100 Oximetry General: Other - lethargic. resting comfortably HEENT: Atraumatic Lungs: Clear to auscultation Cardiovascular: Regular rate Abdomen: Soft, No tenderness Extremities: No edema Skin: No significant lesion Neurological: Other - lethargic. openes eyes to voice but drifts back to sleep right away Psych/Mental Status: Other - lethargic Assessment/Plan - Assessment/Plan Assessment: 63 yo M overdosed on Tramadol with 55 tabs of 50mg strength. Witnessed tonic clonic seizure in ED. Poison control recommending 24 obs, and bicarbonate and magnesium administration. Plan: Cardiovascular: No acute issues -- HR 61-71 -- SBP 103-162 -- Telemetry -- Troponin 0.00 Home meds: None Pulmonary: (1) Subacute drug resistant TB; (2) hx of chest pain and shortness of breath possibly secondary to immune reconstitution -- RR 11-22 -- sats 99-100 on RA -- CXR: pending Home meds: Albuterol Gastrointestinal: (1) hx of malnutrition; (2) hx of peptic ulcer; (3) hx of partial gastrectomy -- LFTs within normal limits -- diet: general -- bowel regimen: none -- ulcer prophylaxis: not indicated at this time Home meds: None Endocrine: (1) hx of elevated glucose reading at outpatient appointment -- monitor BGs -- Hgb A1c ordered -- TSH Pending Home meds: No acute issues Renal: (1) Hypokalemia -- UOP: strict ins and outs -- Cr 0.81 -- Lytes Na 139 K 3.2, replaced Ca 8.8 Mag ordered with AM labs Phos ordered with AM labs -- IVF: D5NS + K @ 75 ml/hr Home meds: None Infectious disease: (1) Leukocytosis; (2) Subacute drug resistant TB ( diagnosed approx 2.5 months ago) -- Tmax 96.9 -- WBC 20.6, follow trend -- Micro 12/25 UA ordered -- ABX resume home regimen -- per 12/05/18 15:44 - ED Nursing Note by Shirley Edgar [facility] Num: [id number] : 1955 Patient Age: 63 pt does not meet requirements at this time for isolation per infection control. pt has a negative sputum. 3.5 months of treatment and per infection control, when pt is to be discharged home, health department need to be notified as they are following pt closely. 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 Then lost to f/u. 04/2018 - Cough started 06/2018 - BAL with MTB - took 8 weeks to grow. Initial AFB stains and MTB PCR negative. 09/12/2018 - Initial consult with ID - started on INH, rifampin, ethambutol , and pyrazinamide. 09/17/2018 - Moxi was added given rifampin resistance assay positive. Outside records from 10/15/2018 ID clinic visit reports that patient had multiple sputum samples from end of September result SMEAR NEGATIVE. Pt had CP/SOB at that time that was unchanged and thought likely secondary to immune reconstitution. He was on INH, PZA, moxifloxacin, and ethambutol. -- ID Consulted Home meds: Ethambutol, isoniazid, linezolid, Pyroxidine Neurologic: (1) Acute toxic encephalopathy; (2) Intentional overdose with Tramadol; (3) Tonic clonic seizure -- Salicylates and Acetaminophen levels pending -- urine drug screen pending -- Alcohol level pending Home meds: None Hematological: (1) Chronic iron deficiency anemia -- Hgb 13.7, follow trend -- Plt 405 -- DVT prophylaxis: SQ Lovenox -- resume home ferrous sulfate Home meds: Ferrous sulfate Metabolic: No acute issues Home meds: None Other: Home meds: MVI, Vitamin C Deep vein thrombosis prophylaxis: SQ Lovenox Dietary: Not indicated at this time Condition: serious Prognosis: guarded Code status: full Disposition: admit to ICU for observation Family updated at bedside regarding interval events and plan of care Cumulative time spent in the care of this patient (excluding any procedure time) : at least 50 minutes. Patient care included clinical interview (with patient and/or family), bedside exam of the patient, review of labs, x-rays, and other ancillary data, coordination of (respiratory, nursing care, review of patient's records, discussion regarding patients management with involved consultants, primary physician, pharmacists, and other healthcare personnel (dietary, case management , physical/occupational therapy etc.)
[2018-12-25] MEDS ORDERED: SODIUM BICARBONATE IV ONE (15:30)
[2018-12-25] MEDS ORDERED: D5W IV ONE (15:30)
[2018-12-25] MEDS: Enoxaparin(*) 40 MG/0.4 ML SYR SUBCUT SCH (15:39)
[2018-12-25] MEDS: D5W NS 0.9% 20Meq KCL 1000 ML* 1,000 ML IV SCH (15:40)
[2018-12-25] MEDS: KCL 10 MEQ/50 ML IVPREMIX* 10 MEQ/50 ML BAG IV SCH ×2 (15:40→17:00)
[2018-12-25] MEDS ORDERED: Linezolid TAB* 600 MG PO SCH (17:00)
[2018-12-25 17:24] LABS: Urine Appearance Cloudy; Urine Bacteria Absent (Absent); Urine Bilirubin Negative (Negative); Urine Blood 1+ (Negative); Urine Color Yellow; Urine Glucose 1+(50 mg/dL) (Negative); Urine Ketones Negative (Negative); Urine Nitrite Negative (Negative); Urine Protein Negative (Negative); Urine Red Blood Cell 3+(>10/hpf) (Absent); Urine Specific Gravity 1.012 (1.010-1.030); Urine Squamous Epithelial Cell Present (Absent); Urine Urobilinogen Negative (Negative); Urine White Blood Cell Trace(0-5/hpf) (Absent)
[2018-12-25 17:38] LABS: Urine Benzodiazepine Screen None Detected (None Detect); Urine Opiates Screen None Detected (None Detect)
[2018-12-25] MEDS ORDERED: LACTATED RINGERS IV ONE (18:00)
[2018-12-25] MEDS: levETIRAcetam 500 MG IVPREMIX* 500 MG/100 ML BAG IV SCH (18:02)
[2018-12-25] MEDS: Linezolid TAB* 600 MG PO SCH (19:42)
[2018-12-25] MEDS: ISONIAZID 300 MG PO SCH (19:43)
[2018-12-25] MEDS: Pyridoxine TAB* 50 MG PO SCH (19:43)
[2018-12-25] MEDS: ETHAMBUTOL 400 MG PO SCH (19:43)
[2018-12-26] MEDS: levETIRAcetam 500 MG IVPREMIX* 500 MG/100 ML BAG IV SCH (05:06)
[2018-12-26 05:25] LABS: Hematocrit 34 % (42-52); Mean Corpuscular HGB Conc 32 g/dL (31-36); Mean Corpuscular Hemoglobin 28 pg (27-31); Mean Corpuscular Volume 87 fL (80-94); Mean Platelet Volume 7.1 fL (7.4-10.4); Platelet Count 280 10^3/uL (150-450); Red Blood Count 3.94 10^6 /uL (4.18-5.48); Red Cell Distribution Width 20 % (10-15); White Blood Count 8.9 10^3/uL (3.5-10.8)
[2018-12-26 05:38] LABS: BUN/Creatinine Ratio 13.5 (8-20); Calcium 7.8 mg/dL (8.6-10.3); EGFR African American 194.2 (>60); EGFR Non-African American 160.5 (>60); Magnesium 2.3 mg/dL (1.9-2.7); Phosphorus 3.5 mg/dL (2.5-5.0); Potassium 4.1 mmol/L (3.5-5.0)
[2018-12-26] MEDS: D5W NS 0.9% 20Meq KCL 1000 ML* 1,000 ML IV SCH (07:44)
[2018-12-26] MEDS ORDERED: Ferrous Sulfate LIQ* 300 MG/5 ML UDC PO SCH (09:00)
[2018-12-26] MEDS ORDERED: Linezolid TAB* 600 MG PO SCH (09:00)
[2018-12-26] MEDS ORDERED: Sodium Chloride(INHALANT) 3%* 4 ML NEB.SOLN INH ONE (10:07)
--- NOTE | 2018-12-26 11:03 | PN ---
Date of Service: 12/26/18 - HD 2 Critical Care Services: 3 yo M currently being treated for drug resistant TB presented to the ED on after tramadol overdose. Per family he was last seen normal at 7:30am at which time his had gone in to work. When she was unable to reach him by phone she came home and found him unresponsive at 1pm. He had two empty tramadol bottles next to him. It is thought that he could have taken as much as 55 tabs of 50 mg Tramadol. He received narcan by EMS On evaluation in the ED he is hemodynamically stable. He is arousable and protecting airway but not oriented. WBC elevated at 20.6. During ED stay the patient had a witnessed tonic clonic seizure which resolved after 1mg Ativan. Poison control contacted and recommending bicarbonate, magnsium and cardiac monitoring. He is admitted to ICU for close montioring. 12/26: Lethargy resolved by morning. Prolonged QTc resolved. Vital Signs: Temp Pulse Resp BP SpO2 FiO2 98.4 F 56 8 147/81 92 12/26/18 07:19 12/26/18 10:01 12/26/18 08:00 12/26/18 10:00 12/26/18 10:01 Physical Exam: Gen: appears comfortable HEENT: intact Lungs: nonlabored Cardiac: RRR Abdomen: nondistended Extremities: Dry, moving equally Neuro: alert, conversing with psychiatry Fluid Balance (Past 24 Hours): I= O= Net Intake & Output 12/24/18 12/25/18 12/26/18 12/27/18 06:59 06:59 06:59 06:59 Intake Total 3246 Output Total 1385 210 Balance 1861 -210 Weight 111 lb 5.335 oz Intake: IV Fluids 2923 D5W NS 20 meq KCL 873 LR 1000 IVPB 113 KCl 113 Medicated IV 210 Keppra 210 Oral 0 Output: Merino 1385 210 Labs: Laboratory Results - last 24 hr 12/25/18 12/25/18 12/25/18 13:42 13:42 13:42 WBC 20.6 H RBC 4.91 Hgb 13.7 L Hct 43 MCV 88 MCH 28 MCHC 32 RDW 20 H Plt Count 405 MPV 7.1 L Neut % (Auto) 92.7 Lymph % (Auto) 3.4 [place] % (Auto) 3.5 Eos % (Auto) 0.0 Baso % (Auto) 0.4 Absolute Neuts (auto) 19.1 H Absolute Lymphs (auto) 0.7 L Absolute Monos (auto) 0.7 Absolute Eos (auto) 0.0 Absolute Basos (auto) 0.1 Absolute Nucleated RBC 0.0 Nucleated RBC % 0.0 Sodium 139 Potassium 3.2 L Chloride 102 Carbon Dioxide 19 L Anion Gap 18 H BUN 17 Creatinine 0.81 Est GFR ( Amer) 116.5 Est GFR (Non-Af Amer) 96.2 BUN/Creatinine Ratio 21.0 H Glucose 168 H Hemoglobin A1c Lactic Acid 12.6 H* Calcium 8.8 Phosphorus Magnesium Total Bilirubin 0.40 AST 37 ALT 47 Alkaline Phosphatase 80 Total Creatine Kinase 82 Troponin I 0.00 Total Protein 7.2 Albumin 4.1 Globulin 3.1 Albumin/Globulin Ratio 1.3 TSH 4.42 Urine Color Urine Appearance Urine pH Ur Specific [place] Urine Protein Urine Ketones Urine Blood Urine Nitrate Urine Bilirubin Urine Urobilinogen Ur Leukocyte Esterase Urine WBC (Auto) Urine RBC (Auto) Ur Squamous Epith Cells Urine Bacteria Urine Sperm Urine Glucose Urine Ascorbic Acid Salicylates < 2.50 Urine Opiates Screen Acetaminophen < 15 Ur Barbiturates Screen Ur Phencyclidine Scrn Ur Amphetamines Screen U Benzodiazepines Scrn Urine Cocaine Screen U Cannabinoids Screen Serum Alcohol < 10 12/25/18 12/25/18 12/25/18 17:00 17:00 21:04 WBC RBC Hgb Hct MCV MCH MCHC RDW Plt Count MPV Neut % (Auto) Lymph % (Auto) Aurora % (Auto) Eos % (Auto) Baso % (Auto) Absolute Neuts (auto) Absolute Lymphs (auto) Absolute Monos (auto) Absolute Eos (auto) Absolute Basos (auto) Absolute Nucleated RBC Nucleated RBC % Sodium Potassium Chloride Carbon Dioxide Anion Gap BUN Creatinine Est GFR ( Amer) Est GFR (Non-Af Amer) BUN/Creatinine Ratio Glucose Hemoglobin A1c Lactic Acid 1.6 Calcium Phosphorus Magnesium Total Bilirubin AST ALT Alkaline Phosphatase Total Creatine Kinase Troponin I Total Protein Albumin Globulin Albumin/Globulin Ratio TSH Urine Color Yellow Urine Appearance Cloudy Urine pH 6.0 Ur Specific [place] 1.012 Urine Protein Negative Urine Ketones Negative Urine Blood 1+ A Urine Nitrate Negative Urine Bilirubin Negative Urine Urobilinogen Negative Ur Leukocyte Esterase Negative Urine WBC (Auto) Trace(0-5/hpf) Urine RBC (Auto) 3+(>10/hpf) A Ur Squamous Epith Cells Present A Urine Bacteria Absent Urine Sperm Present A Urine Glucose 1+(50 mg/dl) A Urine Ascorbic Acid * A Salicylates Urine Opiates Screen None detected Acetaminophen Ur Barbiturates Screen None detected Ur Phencyclidine Scrn None detected Ur Amphetamines Screen None detected U Benzodiazepines Scrn None detected Urine Cocaine Screen None detected U Cannabinoids Screen None detected Serum Alcohol 12/25/18 12/26/18 12/26/18 21:04 05:10 05:10 WBC 8.9 RBC 3.94 L Hgb 11.0 L Hct 34 L MCV 87 MCH 28 MCHC 32 RDW 20 H Plt Count 280 MPV 7.1 L Neut % (Auto) Lymph % (Auto) Aurora % (Auto) Eos % (Auto) Baso % (Auto) Absolute Neuts (auto) Absolute Lymphs (auto) Absolute Monos (auto) Absolute Eos (auto) Absolute Basos (auto) Absolute Nucleated RBC Nucleated RBC % Sodium 137 Potassium 4.1 Chloride 103 Carbon Dioxide 32 Anion Gap 2 BUN 7 Creatinine 0.52 L Est GFR ( Amer) 194.2 Est GFR (Non-Af Amer) 160.5 BUN/Creatinine Ratio 13.5 Glucose 100 Hemoglobin A1c Lactic Acid Calcium 7.8 L Phosphorus 3.5 Magnesium 2.5 2.3 Total Bilirubin AST ALT Alkaline Phosphatase Total Creatine Kinase 109 Troponin I Total Protein Albumin Globulin Albumin/Globulin Ratio TSH Urine Color Urine Appearance Urine pH Ur Specific [place] Urine Protein Urine Ketones Urine Blood Urine Nitrate Urine Bilirubin Urine Urobilinogen Ur Leukocyte Esterase Urine WBC (Auto) Urine RBC (Auto) Ur Squamous Epith Cells Urine Bacteria Urine Sperm Urine Glucose Urine Ascorbic Acid Salicylates Urine Opiates Screen Acetaminophen Ur Barbiturates Screen Ur Phencyclidine Scrn Ur Amphetamines Screen U Benzodiazepines Scrn Urine Cocaine Screen U Cannabinoids Screen Serum Alcohol 12/26/18 05:10 WBC RBC Hgb Hct MCV MCH MCHC RDW Plt Count MPV Neut % (Auto) Lymph % (Auto) Aurora % (Auto) Eos % (Auto) Baso % (Auto) Absolute Neuts (auto) Absolute Lymphs (auto) Absolute Monos (auto) Absolute Eos (auto) Absolute Basos (auto) Absolute Nucleated RBC Nucleated RBC % Sodium Potassium Chloride Carbon Dioxide Anion Gap BUN Creatinine Est GFR ( Amer) Est GFR (Non-Af Amer) BUN/Creatinine Ratio Glucose Hemoglobin A1c 6.0 H Lactic Acid Calcium Phosphorus Magnesium Total Bilirubin AST ALT Alkaline Phosphatase Total Creatine Kinase Troponin I Total Protein Albumin Globulin Albumin/Globulin Ratio TSH Urine Color Urine Appearance Urine pH Ur Specific [place] Urine Protein Urine Ketones Urine Blood Urine Nitrate Urine Bilirubin Urine Urobilinogen Ur Leukocyte Esterase Urine WBC (Auto) Urine RBC (Auto) Ur Squamous Epith Cells Urine Bacteria Urine Sperm Urine Glucose Urine Ascorbic Acid Salicylates Urine Opiates Screen Acetaminophen Ur Barbiturates Screen Ur Phencyclidine Scrn Ur Amphetamines Screen U Benzodiazepines Scrn Urine Cocaine Screen U Cannabinoids Screen Serum Alcohol Studies: 12/25 CXR - bilateral infiltrates, chronic and unchanged Nutrition: general diet Impression: 63 yo M overdosed on Tramadol with 55 tabs of 50mg strength. Witnessed tonic clonic seizure in ED. Poison control recommending 24 obs, and bicarbonate and magnesium administration. Developed prolongation of QTc which subsequently resolved. Mental status returned to baseline by morning. Plan: Cardiovascular: No acute issues -- HR 55-69 -- SBP 103-162 -- Telemetry Home meds: None Pulmonary: (1) Subacute drug resistant TB; (2) hx of chest pain and shortness of breath possibly secondary to immune reconstitution -- RR 7-27 -- sats 90-100 on 2L NC Home meds: Albuterol Gastrointestinal: (1) hx of malnutrition; (2) hx of peptic ulcer; (3) hx of partial gastrectomy -- diet: general -- bowel regimen: none -- ulcer prophylaxis: not indicated at this time Home meds: None Endocrine: (1) hx of elevated glucose reading at outpatient appointment -- monitor BGs -- Hgb A1c 6.0 -- TSH within normal limits Home meds: No acute issues Renal: (1) Hypokalemia, resolved -- UOP: 77 ml/hr -- Cr 0.52 -- Lytes Na 137 K 4.1 Ca 7.8 Mag 2.3 Phos 3.5 -- CK 109 -- IVF: HLIVF Home meds: None Infectious disease: (1) Leukocytosis, resolved; (2) Subacute drug resistant TB (diagnosed approx 2.5 months ago) -- Tmax 98.4 -- WBC 8.9 from 20.6 -- Micro 12/26 induced sputum in progres 12/25 UA negative -- ABX resume home regimen -- ID following Home meds: Ethambutol, isoniazid, linezolid, Pyroxidine Neurologic: (1) Acute toxic encephalopathy, resolved; (2) Intentional overdose with Tramadol; (3) Tonic clonic seizure -- Salicylates and Acetaminophen levels negative -- urine drug screen negative -- Alcohol level negative -- spoke with Neurology, no need for ongoing antiepileptic tx as seizure was provoked by tramadol overdose. If further seizures occur however, he will need at least 3 mo tx with Keppra. -- psychiatry consulted Home meds: None Hematological: (1) Chronic iron deficiency anemia -- Hgb 11.0 from 13.7, dilutional -- Plt 280 -- DVT prophylaxis: SQ Lovenox -- home ferrous sulfate; pt refusing to take and says he isn't taking at home either Home meds: Ferrous sulfate Metabolic: (1) Lactic acidosis resolved -- Lactic acid 1.6 from 12.6 Home meds: None Other: Home meds: MVI, Vitamin C Deep vein thrombosis prophylaxis: SQ Lovenox Dietary: Not indicated at this time Condition: stable Prognosis: guarded Code status: full Disposition: poison control signed off. medically cleared for transfer to inpatient psychiatry Cumulative time spent in the care of this patient (excluding any procedure time) : at least 30 minutes. Patient care included clinical interview (with patient and/or family), bedside exam of the patient, review of labs, x-rays, and other ancillary data, coordination of (respiratory, nursing care, review of patient's records, discussion regarding patients management with involved consultants, primary physician, pharmacists, and other healthcare personnel (dietary, case management , physical/occupational therapy etc.)
--- NOTE | 2018-12-26 11:12 | CONS ---
DATE OF CONSULTATION: 12/26/2018. REQUESTING PHYSICIAN: Dr. Kaye. CONSULTING SERVICE: Infectious Disease. REASON FOR CONSULTATION: Tramadol overdose in a patient on TB treatment. IMPRESSION: 1. Reported Tramadol overdose which he says was a suicide attempt. His metabolic derangements are resolved. He is going to be seen by Psychiatry for this issue and hopefully they will be able to help him with what seems to be worsening baseline depression and anxiety, currently including a fixation on medicine side effects. 2. Tuberculosis, genotype suggests Rifampin resistance. He is on Isoniazid, Linezolid, and Ethambutol. Otherwise seems to be tolerating it well. 3. Hyperglycemia. He had an outpatient blood sugar of 207 when it was drawn December 20; not sure if that was after a large meal. Then yesterday it was 168 and this morning fasting it was 100. His A1c checked yesterday was 6. 4. Weight loss since he has been on TB treatment, but also reportedly had been going on before the diagnosis of TB, so it was may be related to TB infection itself. His HIV test was negative. RECOMMENDATIONS: Will continue his current TB regimen. He has been reluctant to obtain outpatient sputum induction testing, so we will do that here with respiratory therapy. HISTORY OF PRESENT ILLNESS: This 63-year-old who is about three months into TB treatment. He, according to his , took about 60 Tramadol yesterday in a suicide attempt. She came home and found him on the ground with two empty Tramadol bottles. He was admitted to the ICU with lactic acidosis and was obtunded this morning. All those are resolved. Urine tox screen was otherwise negative. Today, he says he did try to kill himself, that he is sorry. His says that he has been increasingly worried about the loss of one of his [employer] computers and she feels he is more and more depressed over time. PAST MEDICAL HISTORY: 1. Pulmonary tuberculosis diagnosed September 2017 in [place]. 2. History of peptic ulcer disease. 3. History of small bowel obstruction. 4. Status post partial gastrectomy. MEDICATIONS: 1. Ascorbic acid. 2. Enoxaparin. 3. Ethambutol 800 mg a day. 4. Ferrous Sulfate. 5. Isoniazid 300 mg a day. 6. Keppra. 7. Linezolid 600 mg a day. 8. Pyridoxine 100 mg a day. 9. Sodium Bicarbonate was given yesterday. ALLERGIES: AZITHROMYCIN; LEVAQUIN CAUSED INTOLERANCE; TETRACYCLINE, UNKNOWN REACTION. FAMILY HISTORY: No recurrent infection. REVIEW OF SYSTEMS: All negative, except as noted above, to 14 point of review. PHYSICAL EXAM: General: He is awake, not in distress. Vital Signs: Temperature 36.9, heart rate 56, respiratory rate 12, blood pressure 147/81, oxygen saturation 92 percent on room air. Neurologic: He is oriented times three, follows all commands, moves all of his extremities. Sensation is intact to light touch in both feet. HEENT: There is no conjunctival hemorrhage. Oropharynx without lesions. Neck: Supple without mass. Heart: Regular rate and rhythm without murmurs, rubs, or gallops. Lungs: Clear to auscultation bilaterally. Abdomen: Soft, nontender, nondistended. There are bowel sounds present. Skin: There is no rash or splinter hemorrhage. Musculoskeletal: There is no spine tenderness to palpation. DIAGNOSTIC STUDIES/LAB DATA: White blood cell count 8.9, hemoglobin 11, MCV 87 , platelets 280, creatinine 0.5. Urinalysis shows blood. Please see impression and recommendations as outlined above. Thank you for asking me to see Mr. Mcdaniel in consultation. [id number]/[facility] #: [id number] [facility] HOS[facility]ITALMason
[2018-12-26] MEDS: ETHAMBUTOL 400 MG PO SCH (11:15)
[2018-12-26] MEDS: Linezolid TAB* 600 MG PO SCH (11:16)
[2018-12-26] MEDS: ISONIAZID 300 MG PO SCH (11:16)
[2018-12-26] MEDS: Pyridoxine TAB* 50 MG PO SCH (11:16)
[2018-12-26] MEDS: Ascorbic Acid TAB* 500 MG PO SCH (11:16)
[2018-12-26] MEDS: Multivitamins ADULT w/MIN LIQ* 15 ML UDC PO SCH ×2 (11:16→11:46)
--- NOTE | 2018-12-26 15:18 | CONS ---
CONSULTATION REPORT: DATE OF CONSULT: 12/26/18 ATTENDING PHYSICIAN: Dr. Rhoda Kaye. CONSULTING PHYSICIAN: Dr. Mohan Carmen. REASON FOR CONSULT: Intentional overdose on tramadol. SUBJECTIVE HISTORY: Mr. 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 The patient remains in the ICU, where he is somnolent and unable to give much history. I do rely on his , Jose, and his daughters, Lolly and Conner, for collateral history. According to the family, the patient had no previous history of psychiatric illness. He had been living and working for the [employer] in [place] until developing complications of tuberculosis, which forced him to retire early. They then moved back to the [facility], where he used to reside until 2007, and in October , he started a trial of several antibiotic therapies for treatment-resistant TB. These medications initially included isoniazid, ethambutol, and later linezolid was added. The family describes him as extremely sensitive to medications, and they say that shortly after starting isoniazid and ethambutol, he started to develop severe blurred vision, nausea, and insomnia. He was given a trial of zolpidem and there was an episode in late November in which he was admitted to [facility] after having overutilized this in combination with some over-the -counter soporifics. My understanding is that he was insistent at that time that he only overtook these medicines to help him sleep. According to the family , the patient thereafter started developing signs and symptoms of paranoia. He was convinced that the government was monitoring his behaviors and he became obsessive about a computer that belonged to the [employer] that he had lost. Later, he started making quasi-suicidal statements to the effect that he could no longer live with the pain and nausea and that he might as well . Things came to a head on the morning of admission, in which his left him in relatively good spirits at home. Later, he would not respond to her phone calls and text messages, and she raced home fearing something had happened. There, she found him unconscious next to two empty medication bottles that had been dispensed with 15 and 60 pills of tramadol. She believes he had already taken about 5 tablets out of each supply. The family is convinced that the patient's presentation is a neuropsychiatric reaction to antibiotic therapy. Mr. Mcdaniel currently is arousable, but appears to be still confused. Although he has told other clinicians as recently as this morning that the overdose was suicidal in nature, he denies this with me, stating that he was merely trying to get some sleep. Mostly, he is complaining of nausea and pain in his abdomen and in his extremities. PAST PSYCHIATRIC HISTORY: The patient had never received psychiatric treatment , evaluation, counseling, or psychiatric medications prior to this episode. I understand that he did have an episode of overdose on zolpidem in late November 2018 that was attributed to an effort to try to sleep. The family is aware of no other attempts to harm himself. He has no history of violence towards others and no history of traumatic brain injury. The family denies any knowledge of him having experienced abuse or neglect. SUBSTANCE ABUSE HISTORY: Negative for the use of tobacco, alcohol, or illicit drugs. PAST MEDICAL HISTORY: Significant for pulmonary tuberculosis diagnosed in September 2017, history of peptic ulcer disease, history of small-bowel obstruction. PAST SURGICAL HISTORY: Status post partial gastrectomy. OUTPATIENT MEDICATIONS: Include: 1. Vitamin B6 at 100 mg daily. 2. Therapeutic multivitamin 1 tablet daily. 3. Linezolid 600 mg daily. 4. Isoniazid 300 mg daily. 5. Iron 325 mg daily. 6. Ethambutol 800 mg daily. 7. Vitamin C 500 mg daily. 8. Albuterol 2 puffs as needed for wheezing. ALLERGIES: Include AZITHROMYCIN, TETRACYCLINE, LEVOFLOXACIN. FAMILY HISTORY: Negative for psychiatric difficulties or suicide attempts. 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 He immigrated to the [facility] with his in 1991 and raised the family here. 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 Later, he got a job with the [employer] and moved to [place] to pursue this career, moving back in September 2018. He has 2 grown daughters, Lolly who lives in [facility] and Conner who lives in [facility]. The patient was forced to retire early because of his medical situation. He remains and his is employed full-time, meaning that he is home alone during the day. He has no history of service. He has no history of legal problems. MENTAL STATUS EXAMINATION: The patient is a frail-appearing, aging male, dressed in a patient gown. He is wearing eyeglasses. He is calm and cooperative, although somnolent. Speech is fluent Samoan with a [place]ian accent. Mood appears to be depressed with an anxious constricted affect. Thought process is linear. Thought content is highly somatic with concerns about nausea and sleeplessness. He is currently denying suicidal or homicidal ideations, although I am told by other clinicians that he has endorsed these as recently as this morning. He denies auditory or visual hallucinations. There is some evidence of paranoia given the patient's persecutory ideation. Cognitively, he is initially asleep, although arousable. He remains lethargic and somnolent. DIAGNOSES: Trenary I: Unspecified depressive disorder, rule out isoniazid-induced depression versus major depressive disorder with psychotic features. Trenary II: Deferred. 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 The family' s report is that his symptoms of depression and paranoia began after initiation of tuberculosis therapies in October. An extensive view of the literature does reveal a fairly robust association between isoniazid and treatment-emergent depression and psychosis. These effects include descriptions of mental depression, mood and other mental changes, behavioral changes, sleep disruption , psychosis and treatment- emergent suicidality. It is clear at this time that antidepressant therapy is warranted. One consideration is that he is taking the antibiotic linezolid, which has some theoretical risk for the so-called serotonin syndrome. For this reason, an antidepressant choice that has lower serotonergic activity would be warranted. RECOMMENDATIONS TO PRIMARY TEAM: Psychiatry recommends initiating a trial of mirtazapine 15 mg p.o. q.h.s. This should help him sleep as well as reduce depressive symptoms. I have placed in a phone call to Dr. Mick Paniagua with infectious diseases to confer with that clinician. It is uncertain whether there is a possibility of reducing or discontinuing isoniazid therapy. I do feel that, given the fact this is the second hospitalization for overdose, transfer to the Behavioral Science Unit with further treatment and safety planning would be warranted. We should also consider antipsychotic therapy, although the patient has medication sensitivities and we are reluctant to start more than 1 agent at a time. Psychiatry will certainly continue to follow the patient and we are prepared to transfer him to our service once he is medically stable to do so. Thank you for the interesting consult. [id number]/[facility] #: [id number] [place]
[2018-12-26] MEDS: Enoxaparin(*) 40 MG/0.4 ML SYR SUBCUT SCH (17:22)
[2018-12-26] MEDS ORDERED: Ondansetron INJ* 2 MG/ML VIAL IV PRN (21:40)
[2018-12-26] MEDS ORDERED: Al Hydrox/Mg Hydrox/Simet LIQ* 30 ML UDC PO PRN (21:40)
[2018-12-26] MEDS: Mirtazapine TAB* 15 MG PO SCH ×2 (21:54→22:32)
[2018-12-26] MEDS ORDERED: Fluticasone NASAL SPRAY 50MCG* 16 gm SPRAY BTL BOTH NARES SCH (22:00)
[2018-12-27] MEDS: ETHAMBUTOL 400 MG PO SCH (09:24)
[2018-12-27] MEDS: Pyridoxine TAB* 50 MG PO SCH (09:24)
[2018-12-27] MEDS: Ascorbic Acid TAB* 500 MG PO SCH ×2 (09:24→09:32)
[2018-12-27] MEDS: ISONIAZID 300 MG PO SCH (09:24)
[2018-12-27] MEDS: Linezolid TAB* 600 MG PO SCH (09:24)
[2018-12-27] MEDS: Multivitamins ADULT w/MIN LIQ* 15 ML UDC PO SCH (09:24)
[2018-12-27 10:28] LABS: Hematocrit 38 % (42-52); Hemoglobin 12.1 g/dL (14.0-18.0); Mean Corpuscular HGB Conc 32 g/dL (31-36); Mean Corpuscular Hemoglobin 28 pg (27-31); Mean Corpuscular Volume 86 fL (80-94); Mean Platelet Volume 6.9 fL (7.4-10.4); Platelet Count 310 10^3/uL (150-450); Red Blood Count 4.39 10^6 /uL (4.18-5.48); Red Cell Distribution Width 20 % (10-15); White Blood Count 8.8 10^3/uL (3.5-10.8)
[2018-12-27 10:58] LABS: BUN/Creatinine Ratio 21.3 (8-20); Calcium 8.8 mg/dL (8.6-10.3); EGFR African American 161.5 (>60); EGFR Non-African American 133.5 (>60); Magnesium 2.4 mg/dL (1.9-2.7); Potassium 3.6 mmol/L (3.5-5.0)
[2018-12-27 12:32] VITALS: BP 119/65
[2018-12-27] MEDS ORDERED: Sodium Chloride(INHALANT) 7%* 4 ML NEB.SOLN INH SCH (15:00)
[2018-12-27] MEDS: Enoxaparin(*) 40 MG/0.4 ML SYR SUBCUT SCH (15:10)
--- NOTE | 2018-12-27 15:18 | PN ---
Progress Note - Progress Note Date of Service: 12/27/18 SOAP: Subjective: CC: overdose HPI: 63 year old man with pulmonary TB and tramadol OD, feels back to his usual self. Eating small amounts, no abd pain. Sleeping more here than he reports at home. Objective: Vital Signs Temp 36.7 C 12/27/18 11:16 Pulse 61 12/27/18 11:16 Resp 16 12/27/18 11:16 BP 119/65 12/27/18 11:16 Pulse Ox 97 12/27/18 11:16 Intake & Output 12/26/18 12/27/18 12/27/18 18:59 06:59 18:59 Intake Total 791 920 720 Output Total 400 850 Balance 391 70 720 Intake: IV Fluids 441 D5W NS 20 meq KCL 441 Oral 350 920 720 Output: Urine 850 Merino 400 Other: # Voids 3 Gen:awake, no distress Neuro: alert, Ox3 HEENT: no thrush Heart:RRR no murmur Lungs:CTA BL Abd:+BS NTND soft Skin: no rash MSK: no chest wall tenderness Laboratory Results - last 24 hr 12/27/18 12/27/18 10:21 10:21 WBC 8.8 RBC 4.39 Hgb 12.1 L Hct 38 L MCV 86 MCH 28 MCHC 32 RDW 20 H Plt Count 310 MPV 6.9 L Sodium 136 Potassium 3.6 Chloride 101 Carbon Dioxide 29 Anion Gap 6 BUN 13 Creatinine 0.61 L Est GFR ( Amer) 161.5 Est GFR (Non-Af Amer) 133.5 BUN/Creatinine Ratio 21.3 H Glucose 121 H Calcium 8.8 Magnesium 2.4 Assessment: 1. pulmonary TB, 2. intolerance to multiple TB drugs, question of INH contributing to his mood 3. weight loss due to TB medications and/or depression Plan: 1. continue INH 300 mg daily, vit B6, linezolid 600 mg daily, ethambutol 800 mg daily; most other agents have limited efficacy and higher toxicity, will check on other options 2. nutrition will try adding calorie supplements
--- NOTE | 2018-12-27 16:02 | CONSULT ---
Identification - Patient Identification Reason for Psychiatric Consultation: Suicidal Ideation -: Patient is a 63 year old, M admitted on 12/26/18. - MHU Identification Employment Status: Disabled Hx Psychiatric Hospitalization: No History - Objective HPI: Mr. Mcdaniel is seen with his and two daughters on the 4th floor. He is much more alert today and strenuously denies that the overdose was suicidal in nature. "No, no, not trying to end my life. Wanted the pain to go away." His family is supportive but feel like the overdose was more problematic than what Mr. Mcdaniel is presenting. He is informed about the pending transfer to the [facility] and is very upset, claiming that he sleeps and eats better at home. The 39 process is explained and we also discuss the rationale behind starting mirtazapine therapy. His will be taking a medical leave from [place], where she works, and will be home to take care of him when he is discharged. We discussed options for safekeeping of medications, including purchase of a safe which only she has the sosa to. Exam Appearance: Thin Framed Hygiene: Normal Grooming: Fairly Well Kept Psychomotor Activities: Abnormal-Increased Exhibits Abnormal Movement: Yes Attitude and Relatedness: Dismissive Eye Contact: Fair - Speech Quality: Unpressured Latencies: Normal Quantity: Appropriate Patient's Decription of Mood: "Anxious" Observed Affect: Constricted Affect Consistent with: Dysphoria Patient's Thought Process: Coherent Thought Content: No Passive Wish, No Suicidal Planning, No Homicidal Ideation, No Paranoid Ideation Experiencing Hallucinations: No, Sensorium is Clear Type of Hallucinations: Visual: No, Auditory: No, Command: No Level of Consciousness: Alert Orientation: Yes Intact, Yes Orientated to Time, Yes Orientated to Place, Yes Orientated to Person Impulse Control: Poor Insight and Judgement: Impaired Impression - Impression Clinical Impression: 63 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 Inpatient DSM-V Dx: F19.94 Merits Inpatient Hospitalization: Yes BSU: Problem List - Patient Problems (1) Substance or medication-induced depressive disorder Current Visit: Yes Status: Acute Priority: High Code(s): F19.94 - OTH PSYCHOACTIVE SUBSTANCE USE, UNSP W MOOD DISORDER; F32.89 - OTHER SPECIFIED DEPRESSIVE EPISODES SNOMED Code(s): 05747607 Plan - Treatment Plan Treatment Plan: Will start mirtazapine 15mg PO qhs and transfer to the BSU on involuntary 9.39 legal status. Continued Medication Management: Start Medication Medications: Current Medications Al Hydrox/Mg Hydrox/Simethicone (Maalox Plus*) 30 ml PO Q4H PRN PRN Reason: INDIGESTION Ascorbic Acid (Vitamin C Tab*) 500 mg PO DAILY [facility] Last Admin: 12/27/18 09:32 Dose: Not Given Enoxaparin Sodium (Lovenox(*)) 40 mg SUBCUT Q24H [facility] Last Admin: 12/27/18 15:10 Dose: Not Given Ethambutol HCl (Myambutol Tab*) 800 mg PO DAILY [facility] Last Admin: 12/27/18 09:24 Dose: 800 mg Isoniazid (Isoniazid Tab*) 300 mg PO DAILY [facility] Last Admin: 12/27/18 09:24 Dose: 300 mg Linezolid (Zyvox Tab*) 600 mg PO DAILY [facility] Last Admin: 12/27/18 09:24 Dose: 600 mg Mirtazapine (Remeron Tab*) 15 mg PO BEDTIME [facility] Last Admin: 12/26/18 22:32 Dose: Not Given Multivitamins (Theragran W/Minerals Liq*) 15 ml PO DAILY [facility] Last Admin: 12/27/18 09:24 Dose: Not Given Ondansetron HCl (Zofran Inj*) 4 mg IV Q6H PRN PRN Reason: NAUSEA Pyridoxine HCl (Vitamin B6 Tab*) 100 mg PO DAILY [facility] Last Admin: 12/27/18 09:24 Dose: 100 mg Sodium Chloride (Hyper-Jagdeep 7%*) 4 ml INH .SEE ORDERS [facility] Last Admin: 12/27/18 15:33 Dose: 4 ml - Discharge Plan Discharge Plan: Inpatient Hospitalization
--- NOTE | 2018-12-27 16:49 | CONS ---
CONSULTATION REPORT/PSYCHIATRIC H&P: ADDENDUM: This psychiatric consultation report, which was dictated on 12/26/18 , is also a psychiatric H and P for his pending transfer and admission to the behavioral science unit. [id number]/[facility] #: [id number] [place]
--- NOTE | 2018-12-27 22:23 | DS ---
CC: Dr. Zeng; Dr. Carmen; Dr. Paniagua * DISCHARGE SUMMARY: DATE OF ADMISSION: 12/25/18 DATE OF DISCHARGE: 12/27/18 ATTENDING PHYSICIAN: Lucian Conley MD * (dictated by TERESITA Dill) PRIMARY CARE PROVIDER: Dr. Zeng. CONSULTING PSYCHIATRIST: Dr. Carmen. CONSULTING INFECTIOUS DISEASE SPECIALIST: Dr. Paniagua. PRIMARY DIAGNOSES: 1. Tramadol overdose. 2. Seizure. SECONDARY DIAGNOSES: 1. 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 2. Iron deficiency anemia. 3. Malnourished. 4. Peptic ulcer disease. STUDIES WHILE IN THE HOSPITAL: Chest x-ray on 12/25/18 shows active cardiopulmonary disease as noted. EKG on 12/25/18, normal sinus rhythm, rate 72 beats per minute, isolated T wave inversion in V1, otherwise no T wave changes or ST elevations or depressions. PERTINENT LAB DATA: Lactic acid 12.6 on 12/25/18, then later 1.6. Magnesium level on day of discharge 2.4. Potassium level 3.6 on day of discharge. White blood cell count 20.6 on 12/25/18 and 8.8 on discharge. DISCHARGE MEDICATIONS: 1. Remeron 15 mg p.o. at bedtime. 2. Maalox 30 mL p.o. q.4 hours p.r.n. indigestion. Continued home medications: 1. Linezolid 600 mg p.o. daily. 2. Vitamin B6 100 mg p.o. daily. 3. Ferrous sulfate 325 mg p.o. daily. 4. Isoniazid 300 mg p.o. daily. 5. Multivitamin 1 tab p.o. daily. 6. Albuterol inhaler 2 puffs inhaled q.4 hours p.r.n. shortness of breath as well as wheezing. 7. Ascorbic acid 500 mg p.o. daily. 8. Ethambutol 800 mg p.o. daily. HISTORY OF PRESENT ILLNESS/HOSPITAL COURSE: Darya Mcdaniel is a 63-year-old Salvadorean male with past medical history significant for resistant tuberculosis, peptic ulcer disease, and iron deficiency anemia who presented to the emergency department on 12/25/18 after a tramadol overdose. Please see admission H and P from Dr. Rhoda Kaye for further details. Of note, he experienced a witnessed tonic clonic seizure, which resolved after 1 mg of Ativan and was admitted to ICU and was stable and sent to the medical floor. He was seen by his regular infectious disease specialist, Dr. Paniagua, who would like to continue his medications for treatment of his drug- resistant tuberculosis at this time. Dr. Carmen, psychiatrist, saw the patient and believed there was a possibility of a component of his tuberculosis medication contributing to psychosis and suicidality; however, there may have been underlying depression/ anxiety pre-existing. Dr. Carmen agreed to send the patient to behavioral services unit after the patient was medically stable. On day of discharge, the patient has no complaints. Reuben states he would like to go home and states that his taking of entire bottle of tramadol was not intentional and that it was not a suicide attempt. He denies chest pain, difficulty breathing, fevers, chills, abdominal pain, nausea, vomiting. REVIEW OF SYSTEMS: An 11-point review of systems was completed and all pertinent positives and negatives are above in the HPI. All other systems are negative. PHYSICAL EXAM: Thin male, sitting upright in hospital bed, in no acute distress, though appearing anxious, at bedside. Head: Normocephalic, atraumatic. Eyes: PERRL. Sclerae anicteric. EOMI. No nystagmus. ENT: Mucous membranes moist. Neck: Supple without JVD. Cardio: Regular rate and rhythm without murmurs, rubs, or gallops. Lungs: Clear to auscultation throughout. Abdomen: Abdomen is soft, nontender, nondistended. Extremities: No clubbing, cyanosis, or edema. Neuro: The patient is alert and oriented x3. No focal deficits. Able to move all extremities. Strength is 5/5 in all extremities. Skin is warm, dry, and intact. DISCHARGE PLAN: Diet: Regular diet. Activity: He may return to his regular activity. The patient is being subsequently admitted to the behavioral services unit at [facility] under the care of Dr. Carmen. It is recommended that the patient have a nutrition consult and consider a Neurology consult. This is recommended due to the patient's state of possible malnourishment as well as poor oral intake, which may be related to his depression or perhaps his tuberculosis antibiotics. Given the patient had a seizure, this is most likely related to his tramadol overdose, but it may be of benefit to have further workup by a neurologist while he is still at the hospital. Otherwise, it is recommended that the patient follow up his primary care provider after his stay at behavioral services unit, follow up throughout his hospitalization and he is to continue following up with Dr. Paniagua regarding his tuberculosis treatment. CONDITION ON DISCHARGE: Stable. DISPOSITION: To behavioral services unit at [facility]. TIME SPENT: Approximately 45 minutes was spent on this discharge, approximately half of this time was spent at bedside. TERESITA DILL [id number]/CPS #: [id number] TURNER
== END 2018-12-27 17:30 | DRG 812 ==
LOC: ED 13:24 → ICU 14:35 → OBSVTOIN 12-26 10:00 → MEDTELE 12-26 15:55
PROVIDERS: ADMIT Internal Medicine Critical Care Medicine; ATTEND Internal Medicine
DX: T40.4X2A Poisoning by other synthetic narcotics, intentional self-harm, initial encounter (principal); G92 Toxic encephalopathy; E87.2 Acidosis; E46 Unspecified protein-calorie malnutrition; A15.9 Respiratory tuberculosis unspecified; Z68.1 Body mass index [BMI] 19.9 or less, adult; F19.94 Other psychoactive substance use, unspecified with psychoactive substance-induced mood disorder; G40.409 Other generalized epilepsy and epileptic syndromes, not intractable, without status epilepticus; D50.9 Iron deficiency anemia, unspecified; I45.81 Long QT syndrome; K27.9 Peptic ulcer, site unspecified, unspecified as acute or chronic, without hemorrhage or perforation; E87.6 Hypokalemia; R73.9 Hyperglycemia, unspecified; Z16.30 Resistance to unspecified antimicrobial drugs; Z88.1 Allergy status to other antibiotic agents; Y92.039 Unspecified place in apartment as the place of occurrence of the external cause; Z88.8 Allergy status to other drugs, medicaments and biological substances; Z79.899 Other long term (current) drug therapy; Z79.51 Long term (current) use of inhaled steroids
CPT/HCPCS: 36415; 71045; 80048; 80053; 80307; 80320; 80329; 81003; 81015; 82550; 83036; 83605; 83735; 84100; 84443; 84484; 85025; 85027; 87070; 87086; 87116; 87205; 87206; 87641; 93005; 94640; 99285; A9270-GY; G0378; G0480; J1650; J2060; J3475; J3480

== ENCOUNTER 2018-12-27 15:19 | Inpatient (IN) | payer BC ==
[2018-12-27] MEDS ORDERED: Acetaminophen TAB* 325 MG PO PRN (16:07)
[2018-12-27] MEDS ORDERED: Al Hydrox/Mg Hydrox/Simet LIQ* 30 ML UDC PO PRN (16:07)
[2018-12-27] MEDS ORDERED: Albuterol HFA INHALER* 8 gm MDI INH PRN (16:08)
--- OUTSIDE RECORDS SUMMARY | 2018-12-27 18:02 | XMS REPORT | Continuity of Care Document ---
:1955 External Reference #:[id number] Author Name July Oviedo Care Team Providers Name Role Phone Elise Zeng MD Primary Care Physician Unavailable Payers Date Identification Numbers Payment Provider Subscriber Effective: 2014 Policy Number: [id number] BS Fep Darya Mcdaniel Group Number: [id number] [address] [address] Group Name: [id number] FabianaDANITZA [id number] PayID: [id number] Family History Date Family Member(s) Observation Comments General No Current Problems Social History Type Date Description Comments Sex Unknown Tobacco Use Start: Unknown Patient has never smoked Smoking Status Reviewed: 12/19/18 Patient has never smoked Allergies, Adverse Reactions, Alerts Active Allergies Reaction Severity Comments Date Tetracycline rash 11/26/2018 Levofloxacin body pain, sleeplessness 11/26/2018 Azithromycin 12/19/2018 Medications Active Medications SIG Qnty Indications Ordering Provider Date Linezolid one by mouth once 30tabs A15.0 Baljeet D. 11/29/2018 600mg Tablets a day Katherin Orr Oxycodone-Acetaminoph take one tablet 30tabs R07.9 Elise Zeng MD 2018 en every 6 hours as 5-325mg Tablets needed for pain Ethambutol HCL 2 by mouth daily 60tabs Baljeet D. 400mg Katherin Orr Tablets Isoniazid 1 tab by mouth 30tabs Baljeet D. 300mg Tablets each day Katherin Orr Pyridoxine HCL 1 by mouth every Unknown 100mg day Tablets Tramadol HCL 1 tablets by Unknown 50mg mouth every 6 Tablets hours as needed pain Ventolin HFA 2 puffs every 4 Unknown hours as needed 108(90Base) mcg/Act Aerosol Ascorbic Acid 1 by mouth every Unknown 500mg day Tablets Multiple Vitamin 1 by mouth every Unknown day Tablets History Medications Ibuprofen 1 by mouth twice 30tabs R07.9 Baljeet Gagnon 11/26/2018 - 600mg Tablets daily as needed Katherin Orr 11/28/2018 for chest pain Zolpidem Tartrate 1 by mouth at 14tabs Baljeet Gagnon 11/26/2018 - 5mg bedtime if Katherin Orr 12/10/2018 Tablets needed for sleep Moxifloxacin HCL 1 by mouth every Unknown - 400mg day 12/18/2018 Tablets Pyrazinamide 2 tab by mouth Unknown - 500mg daily 11/26/2018 Tablets Ferrous Sulfate 1 by mouth every Unknown - day 11/13/2018 325(65Fe) mg Tablets Vital Signs Date Vital Result Comment 12/19/2018 4:17pm Height 68.5 inches 5'8.50" Weight 95.38 lb Heart Rate 55 /min BP Systolic Sitting 122 mmHg BP Diastolic Sitting 74 mmHg Respiratory Rate 14 /min Body Temperature 97.3 F BMI (Body Mass Index) 14.3 kg/m2 11/29/2018 11:06am Height 68.5 inches 5'8.50" Weight [...] BMI (Body Mass Index) 14.6 kg/m2 Results Test Date Facility Test Result H/L Range Note CBC Auto Diff 12/25/2018 [facility] White Blood 20.6 10^3/uL High 3.5-10.[address] [address] [phone] Red Blood Count 4.91 10^6/uL N 4.18-5.48 Hemoglobin 13.7 g/dL Low 14.0-18.0 Hematocrit 43 % N 42-52 Mean Corpuscular Volume 88 fL N 80-94 Mean Corpuscular Hemoglobin 28 pg N 27-31 Mean Corpuscular HGB Conc 32 g/dL N 31-36 Red Cell Distribution Width 20 % High 10-15 Platelet Count 405 10^3/uL N 150-450 Mean Platelet Volume 7.1 fL Low 7.4-10.4 Abs Neutrophils 19.1 10^3/uL High 1.5-7.7 Abs Lymphocytes 0.7 10^3/uL Low 1.0-4.8 Abs Monocytes 0.7 10^3/uL N 0-0.8 Abs Eosinophils 0.0 10^3/uL N 0-0.6 Abs Basophils 0.1 10^3/uL N 0-0.2 Abs Nucleated RBC 0.0 10^3/uL Granulocyte % 92.7 % Lymphocyte % 3.4 % Monocyte % 3.5 % Eosinophil % 0.0 % Basophil % 0.4 % Nucleated Red Blood Cells % 0.0 Laboratory test 12/25/2018 [facility] Lactic Acid 12.6 mmol/L High 0.5-2.0 1 finding [address] [place] [address] [phone] Comp Metabolic 12/25/2018 [facility] Sodium 139 mmol/L N 135- 145 Panel [address] [place] [address] [phone] Potassium 3.2 mmol/L Low 3.5-5.0 Chloride 102 mmol/L N 101-111 Co2 Carbon Dioxide 19 mmol/L Low 22-32 Anion Gap 18 mmol/L High 2-11 Glucose 168 mg/dL High 70-100 Blood Urea Nitrogen 17 mg/dL N 6-24 Creatinine 0.81 mg/dL N 0.67-1.17 BUN/Creatinine Ratio 21.0 High 8-20 Calcium 8.8 mg/dL N 8.6-10.3 Total Protein 7.2 g/dL N 6.4-8.9 Albumin 4.1 g/dL N 3.2-5.2 Globulin 3.1 g/dL N 2-4 Albumin/Globulin Ratio 1.3 N 1-3 Total Bilirubin 0.40 mg/dL N 0.2-1.0 Alkaline Phosphatase 80 U/L N 34-104 Alt 47 U/L N 7-52 Ast 37 U/L N 13-39 Egfr Non- 96.2 >60 Egfr 116.5 >60 2 Laboratory test 12/25/2018 [facility] Creatine 82 U/L N 10- [address] [facility] Kinase(CK) [place] [address] [phone] Troponin-I (TnI) 0.00 ng/mL <0.04 3 Acetaminophen < 15 g/mL 4 Alcohol < 10 mg/dL N <10 Salicylate < 2.50 mg/dL <30 TSH (Thyroid Stim Horm) 4.42 mcIU/mL N 0.34-5.60 Urine Drug 12/25/2018 [facility] Urine None Detected None Detect SCR ED & [address] [facility] Amphetamine [place] [address] Screen [phone] Urine Barbiturates Screen None Detected None Detect Urine Benzodiazepine Screen None Detected None Detect Urine Cannabinoids Screen None Detected None Detect Urine Cocaine Screen None Detected None Detect Urine Opiates Screen None Detected None Detect Urine Phencyclidine Screen None Detected None Detect 5 Urinalysis Profile 12/25/2018 [facility] Urine Color Yellow [address] [place] [address] [phone] Urine Appearance Cloudy Urine Specific [place] 1.012 N 1.010-1.030 Urine pH 6.0 N 5-9 Urine Urobilinogen Negative Negative Urine Ketones Negative Negative Urine Protein Negative Negative Urine Leukocytes Negative Negative Urine Blood 1+ Abnormal Negative * * Abnormal Negative 6 Urine Nitrite Negative Negative Urine Bilirubin Negative Negative Urine Glucose 1+(50 mg/dL) Abnormal Negative Urine White Blood Cell Trace(0-5/hpf) Absent Urine Red Blood Cell 3+(>10/hpf) Abnormal Absent Urine Bacteria Absent Absent Urine Squamous Epithelial Cell Present Abnormal Absent Urine Sperm Present Abnormal Absent CBC Auto Diff 12/20/2018 [facility] White Blood 7.6 10^3/uL N 3.5-10.8 [address] [place] [address] [phone] Red Blood Count 4.69 10^6/uL N 4.18-5.48 Hemoglobin 13.0 g/dL Low 14.0-18.0 Hematocrit 40 % Low 42-52 Mean Corpuscular Volume 86 fL N 80-94 Mean Corpuscular Hemoglobin 28 pg N 27-31 Mean Corpuscular HGB Conc 32 g/dL N 31-36 Red Cell Distribution Width 20 % High 10-15 Platelet Count 385 10^3/uL N 150-450 Mean Platelet Volume 8.1 fL N 7.4-10.4 Abs Neutrophils 5.9 10^3/uL N 1.5-7.7 Abs Lymphocytes 1.2 10^3/uL N 1.0-4.8 Abs Monocytes 0.4 10^3/uL N 0-0.8 Abs Eosinophils 0.1 10^3/uL N 0-0.6 Abs Basophils 0.0 10^3/uL N 0-0.2 Abs Nucleated RBC 0.0 10^3/uL Granulocyte % 77.4 % Lymphocyte % 16.1 % Monocyte % 5.2 % Eosinophil % 0.9 % Basophil % 0.4 % Nucleated Red Blood Cells % 0.0 Comp Metabolic Panel 12/20/2018 [facility] Sodium 132 mmol/L Low 135-[address] [place] [address] [phone] Potassium 3.7 mmol/L N 3.5-5.0 Chloride 99 mmol/L Low 101-111 Co2 Carbon Dioxide 24 mmol/L N 22-32 Anion Gap 9 mmol/L N 2-11 Glucose 207 mg/dL High 70-100 Blood Urea Nitrogen 16 mg/dL N 6-24 Creatinine 0.72 mg/dL N 0.67-1.17 BUN/Creatinine Ratio 22.2 High 8-20 Calcium 9.0 mg/dL N 8.6-10.3 Total Protein 6.5 g/dL N 6.4-8.9 Albumin 3.8 g/dL N 3.2-5.2 Globulin 2.7 g/dL N 2-4 Albumin/Globulin Ratio 1.4 N 1-3 Total Bilirubin 0.50 mg/dL N 0.2-1.0 Alkaline Phosphatase 74 U/L N 34-104 Alt 51 U/L N 7-52 Ast 32 U/L N 13-39 Egfr Non- 110.3 >60 Egfr 133.4 >60 7 Laboratory test 12/05/2018 [facility] Troponin-I (TnI) 0.00 ng/ mL <0.04 [address] [place] [address] [phone] Laboratory test 12/05/2018 [facility] Folic Acid > 20.00 > 3.[address] (Folate) ng/[place] [address] [phone] Vitamin D Total 25(Oh) 31.6 ng/mL N 20-50 9 Prealbumin 24 mg/dL N 18-38 TSH (Thyroid Stim Horm) 6.92 mcIU/mL High 0.34-5.60 Free T4 (Free Thyroxine) 1.13 ng/dL High 0.61-1.12 Laboratory test 12/05/2018 [facility] Vitamin B12 1254 pg/mL High 180-914 10 finding [address] [place] [address] [phone] Vitamin B1 (Whole Blood) 186 nmol/L Abnormal 70-180 11 1 Critical Result LACT:12.6 Called to [id number] at: 14:31:16 by:[id number] Read back by:[id number] [facility] Severe Sepsis and Septic Shock Management Bundle Measure requires all lactic acids initially measuring >2.0 mmol/L be repeated. 2 Because ethnic data is not always readily available, this report includes an eGFR for both -Americans and non- Americans. The National Kidney Disease Education Program (NKDEP) does not endorse the use of the MDRD equation for patients that are not between the ages of 18 and 70, are , have extremes of body size, muscle mass, or nutritional status, or are non- or non-. According to the National Kidney Foundation, irrespective of diagnosis, the stage of the disease is based on the level of kidney function: Stage Description GFR(mL/min/1.73 m(2)) 1 Kidney damage with normal or decreased GFR 90 2 Kidney damage with mild decrease in GFR 60-89 3 Moderate decrease in GFR 30-59 4 Severe decrease in GFR 15-29 5 Kidney failure <15 (or dialysis) 3 Troponin-I testing on Plasma Separator Tubes (PST) has a known false positive rate of 0.20-0.40%. All positive troponins reflex immediately to secondary confirmatory testing. Using the [employer] DxI 800 Access Immunoassay systems, the 99th percentile upper reference limit was demonstrated to be < 0.03 ng/mL. 4 Therapeutic concentration: <50 ug/mL Toxic concentration: >120 ug/mL 5 The urine specimen was tested at the listed cutoffs: Drug class test level (ng/mL) Amphetamines 500 Barbiturates 200 Benzodiazepine metabolites 200 Cocaine metabolites 150 Cannabinoids 50 Opiates 300 Pcp 25 Specimen was received without chain of custody. Results should be used for medical purposes only. 6 *Ascorbic acid is present which may interfere with detection of blood. 7 Because ethnic data is not always readily available, this report includes an eGFR for both -Americans and non- Americans. The National Kidney Disease Education Program (NKDEP) does not endorse the use of the MDRD equation for patients that are not between the ages of 18 and 70, are , have extremes of body size, muscle mass, or nutritional status, or are non- or non-. According to the National Kidney Foundation, irrespective of diagnosis, the stage of the disease is based on the level of kidney function: Stage Description GFR(mL/min/1.73 m(2)) 1 Kidney damage with normal or decreased GFR 90 2 Kidney damage with mild decrease in GFR 60-89 3 Moderate decrease in GFR 30-59 4 Severe decrease in GFR 15-29 5 Kidney failure <15 (or dialysis) 8 Troponin-I testing on Plasma Separator Tubes (PST) has a known false positive rate of 0.20-0.40%. All positive troponins reflex immediately to secondary confirmatory testing. Using the [employer] DxI 800 Access Immunoassay systems, the 99th percentile upper reference limit was demonstrated to be < 0.03 ng/mL. 9 Total 25-Hydroxyvitamin D2 and D3 (25-OH-VitD) <10 ng/mL (severe deficiency) 10-19 ng/mL (mild to moderate deficiency) 20-50 ng/mL (optimum levels) 51-80 ng/mL (increased risk of hypercalciuria) >80 ng/mL (toxicity possible) 10 Normal Range 180 to 914 Indeterminate Range 145 to 180 Deficient Range <145 11 ADDITIONAL INFORMATION This test was developed and its performance characteristics determined by [facility] in a manner consistent with CLIA requirements. This test has not been cleared or approved by the U.S. Food and Drug Administration. Test Performed by: [facility] - [facility] [address] [place] [address] Procedures Date Code Description Status 11/06/2018 97031 ECHO Transthorasic Realtime 2D W Doppler & Color Flow Hosp Completed Encounters Type Date Location Provider Dx Diagnosis Office Visit 12/19/2018 [facility] For Baljeet Gagnon A15.0 Tuberculosis of lung 4:20p Infectious Katherin Orr Diseases H53.8 Other visual disturbances Office Visit 12/06/2018 [facility] Baljeet Gagnon G93.40 Encephalopathy, 10:26a For Destini Orr M.D. 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.0 Tuberculosis of lung Office 12/06/2018 [facility] Prabhjot T50.901A Poisoning by unsp Visit 11:22a Assoc,pc Moussadeliaem, drug/meds/biol Hospitalists Katherin subst, accidental, init R41.82 Altered mental status, unspecified R47.01 Aphasia R07.9 Chest pain, unspecified E46 Unspecified protein-calorie malnutrition Office Visit 12/05/2018 11:21a [facility] Christie Joyner DO R47.01 Aphasia Assoc,pc Hospitalists R07.9 Chest pain, unspecified R41.0 Disorientation, unspecified R45.1 Restlessness and agitation F32.0 Major depressive disorder, single episode, mild Office Visit 11/29/2018 11:10a [facility] Baljeet Gagnon A15.0 Tuberculosis of For Infectious Katherin Orr lung Diseases R63.4 Abnormal weight loss Z79.2 alf (current) use of antibiotics Office Visit 11/26/2018 8:50a [facility] Baljeet Gagnon A15.0 Tuberculosis of For Infectious Katherin Orr lung Diseases 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 R07.9 Chest pain, unspecified R53.1 Weakness R63.4 Abnormal weight loss G47.00 Insomnia, unspecified Office Visit 11/26/2018 3:00p [facility] Internal Elise Zeng, D50.9 Iron deficiency Medicine - [facility] anemia, unspecified R53.1 Weakness R07.9 Chest pain, unspecified A15.0 Tuberculosis of lung R63.4 Abnormal weight loss Office Visit 11/07/2018 10:28a [facility] Reyna A15.0 Tuberculosis of ,raghu Sauceda MD lung Hospitalists Z16.24 Resistance to multiple antibiotics D50.9 Iron deficiency anemia, unspecified E46 Unspecified protein-calorie malnutrition Office Visit 11/07/2018 11:48a Pulmonology And Claudia A15.0 Tub[facility] of [facility] Dusty lung [facility] Office Visit 11/06/2018 10:26a [facility] Reyna A15.0 Tuberculosis of Assgenesis,raghu Sauceda MD lung Hospitalists D50.9 Iron deficiency anemia, unspecified E46 Unspecified protein-calorie malnutrition Office Visit 11/06/2018 11:46a Pulmonology And Claudia A15.0 Tuberculosis of [facility] Dusty lung [facility] Office Visit 11/05/2018 10:26a [facility] Christie R53.1 Weakness Assoc,raghu Joyner DO Hospitalists R07.9 Chest pain, unspecified Plan of Treatment Future Appointment(s):01/09/2019 4:00 pm - Baljeet Orr M.D. at [facility] Gtfblihw73/17/2019 2:00 pm - Elise Zeng MD at [facility] Internal Medicine - Ccmob12/19/2018 - Baljeet Orr M.D.A15.0 Tuberculosis of lungComments:Month 3/9 of INH, ethambutol, linezolid; I am concerned that he is experiencing each of the side effects on the rx bottle as has happened with each medicine he has been on and will plan to continue the same regimen for now as other available agents are more toxic than what he is currently takingFollow up:3 qkhcjY23.8 Other visual disturbancesReferral:Vimal Alexander MD, Ophthalmology
--- OUTSIDE RECORDS SUMMARY | 2018-12-27 18:02 | XMS REPORT | Continuity of Care Document ---
:1955 External Reference #:[id number] Author Name July Oviedo Care Team Providers Name Role Phone Elise Zeng MD Primary Care Physician Unavailable Payers Date Identification Numbers Payment Provider Subscriber Effective: 2014 Policy Number: [id number] BS Fep Darya Mcdaniel Group Number: [id number] [address] [address] Group Name: [id number] FabianaDANITZA [id number] PayID: [id number] Family History Date Family Member(s) Observation Comments [...] H/L Range Note CBC Auto Diff 12/25/2018 [facility] White Blood 20.6 10^3/uL High 3.5-10.[address] [place] [address] [phone] Red Blood Count 4.91 10^6/uL N 4.18-5.48 [...] Blood Cells % 0.0 Laboratory test 12/25/2018 [facility] Lactic Acid 12.6 mmol/L High 0.5-2.0 1 finding [address] [place] [address] [phone] Comp Metabolic 12/25/2018 [facility] Sodium 139 mmol/L N 135- 145 Panel [address] [place] [address] [phone] Potassium 3.2 mmol/L Low 3.5-5.0 Chloride 102 [...] Egfr 116.5 >60 2 Laboratory test 12/25/2018 [facility] Creatine 82 U/L N 10- 223 finding 101 [facility] Kinase(CK) [place] [address] [phone] Troponin-I (TnI) 0.00 ng/mL <0.04 3 Acetaminophen < 15 g/mL 4 Alcohol < 10 mg/dL N <10 Salicylate < 2.50 mg/dL <30 TSH (Thyroid Stim Horm) 4.42 mcIU/mL N 0.34-5.60 Urine Drug 12/25/2018 [facility] Urine None Detected None Detect SCR ED & [address] [facility] [place] [address] Screen [phone] Urine Barbiturates Screen None Detected None Detect Urine Benzodiazepine Screen None Detected None Detect Urine Cannabinoids Screen None Detected None Detect Urine Cocaine Screen None Detected None Detect Urine Opiates Screen None Detected None Detect Urine Phencyclidine Screen None Detected None Detect 5 Urinalysis Profile 12/25/2018 [facility] Urine Color Yellow [address] [place] [address] [phone] Urine Appearance Cloudy Urine Specific [place] 1.012 N 1.010-1.030 Urine pH 6.0 N [...] Present Abnormal Absent CBC Auto Diff 12/20/2018 [facility] White Blood 7.6 10^3/uL N 3.5-10.8 [address] [facility] [address] [place] [address] [phone] Red Blood Count 4.69 10^6/uL N 4.18-5.48 [...] Cells % 0.0 Comp Metabolic Panel 12/20/2018 [facility] Sodium 132 mmol/L Low 135-[address] [place] [address] [phone] Potassium 3.7 mmol/L N 3.5-5.0 Chloride 99 [...] Egfr 133.4 >60 7 Laboratory test 12/05/2018 [facility] Troponin-I (TnI) 0.00 ng/ mL <0.04 [address] [place] [address] [phone] Laboratory test 12/05/2018 [facility] Folic Acid > 20.00 > 3.[address] (Folate) ng/[place] [address] [phone] Vitamin D Total 25(Oh) 31.6 ng/mL N 20-50 9 Prealbumin 24 mg/dL N 18-38 TSH (Thyroid Stim Horm) 6.92 mcIU/mL High 0.34-5.60 Free T4 (Free Thyroxine) 1.13 ng/dL High 0.61-1.12 Laboratory test 12/05/2018 [facility] Vitamin B12 1254 pg/mL High 180-914 10 finding [address] [place] [address] [phone] Vitamin B1 (Whole Blood) 186 nmol/L Abnormal 70-180 11 1 Critical Result LACT:12.6 Called to [id number] at: 14:31:16 by:[id number] Read back by:[id number] [facility] Severe Sepsis and Septic Shock Management Bundle [...] immediately to secondary confirmatory testing. Using the [employer] DxI 800 Access Immunoassay systems, the 99th [...] immediately to secondary confirmatory testing. Using the [employer] DxI 800 Access Immunoassay systems, the 99th [...] developed and its performance characteristics determined by [facility] in a manner consistent with CLIA requirements. This test has not been cleared or approved by the U.S. Food and Drug Administration. 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.0 Tuberculosis of lung Office 12/06/2018 [facility] Prabhjot T50.901A Poisoning by unsp Visit 11:22a Assoc,pc Moussadeliaem, drug/meds/biol Hospitalists Katherin subst, accidental, init R41.82 Altered mental status, unspecified R47.01 Aphasia R07.9 Chest pain, unspecified E46 Unspecified protein-calorie malnutrition Office Visit 12/05/2018 11:21a [facility] Christie Joyner DO R47.01 Aphasia Assoc,pc Hospitalists R07.9 Chest pain, unspecified R41.0 Disorientation, unspecified R45.1 Restlessness and agitation F32.0 Major depressive disorder, single episode, mild Office Visit 11/29/2018 11:10a [facility] Baljeet Gagnon A15.0 Tuberculosis of For Infectious Katherin Orr lung Diseases R63.4 Abnormal weight loss Z79.2 skilled nursing (current) use of antibiotics Office Visit 11/26/2018 8:50a [facility] Baljeet Gagnon A15.0 Tuberculosis of For Infectious Katherin Orr lung Diseases 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 R07.9 Chest pain, unspecified R53.1 Weakness R63.4 Abnormal weight loss G47.00 Insomnia, unspecified Office Visit 11/26/2018 3:00p [facility] Internal Elise Zeng, D50.9 Iron deficiency Medicine - [facility] anemia, unspecified R53.1 Weakness R07.9 Chest pain, unspecified A15.0 Tuberculosis of lung R63.4 Abnormal weight loss Office Visit 11/07/2018 10:28a [facility] Reyna A15.0 Tuberculosis of ,raghu Sauceda MD lung Hospitalists Z16.24 Resistance to multiple antibiotics D50.9 Iron deficiency anemia, unspecified E46 Unspecified protein-calorie malnutrition Office Visit 11/07/2018 11:48a Pulmonology And Claudia A15.0 Tuberculosis of [facility] MD Dusty lung [facility] Office Visit 11/06/2018 10:26a [facility] Reyna A15.0 Tuberculosis of Assgenesis,raghu Sauceda MD lung Hospitalists D50.9 Iron deficiency anemia, unspecified E46 Unspecified protein-calorie malnutrition Office Visit 11/06/2018 11:46a Pulmonology And Claudia A15.0 Tuberculosis of [facility] MD Dusty lung [facility] Office Visit 11/05/2018 10:26a [facility] Christie R53.1 Weakness Assoc,raghu Joyner DO Hospitalists R07.9 Chest pain, unspecified Plan of Treatment Future Appointment(s):01/09/2019 4:00 pm - Baljeet Orr M.D. at [facility] Iztfldtc34/17/2019 2:00 pm - Elise Zeng MD at [facility] Internal Medicine - C[facility]ob12/19/2018 - Baljeet Orr [...] than what he is currently takingFollow up:3 pjnljA21.8 Other visual disturbancesReferral:Vimal Alexander MD, Ophthalmology
[2018-12-27] MEDS: Mirtazapine TAB* 15 MG PO SCH (22:24)
[2018-12-28 08:36] LABS: HDL Cholesterol 99.6 mg/dL
[2018-12-28] MEDS: ISONIAZID 300 MG PO SCH (08:54)
[2018-12-28] MEDS: Linezolid TAB* 600 MG PO SCH (08:55)
[2018-12-28] MEDS: Multivitamins/Minerals TAB PO SCH (08:55)
[2018-12-28] MEDS: Ascorbic Acid TAB* 500 MG PO SCH (08:55)
[2018-12-28] MEDS: ETHAMBUTOL 400 MG PO SCH (08:55)
[2018-12-28] MEDS: Pyridoxine TAB* 50 MG PO SCH (08:55)
[2018-12-28] MEDS: Ferrous Sulfate TAB* 325 MG PO SCH (09:13)
[2018-12-28] MEDS: Mirtazapine TAB* 15 MG PO SCH (21:44)
[2018-12-29] MEDS: ISONIAZID 300 MG PO SCH (10:11)
[2018-12-29] MEDS: Pyridoxine TAB* 50 MG PO SCH (10:12)
[2018-12-29] MEDS: ETHAMBUTOL 400 MG PO SCH (10:12)
[2018-12-29] MEDS: Linezolid TAB* 600 MG PO SCH (10:12)
[2018-12-29] MEDS: Ascorbic Acid TAB* 500 MG PO SCH (10:13)
[2018-12-29] MEDS: Multivitamins/Minerals TAB PO SCH (10:13)
[2018-12-29] MEDS: Ferrous Sulfate TAB* 325 MG PO SCH (10:18)
--- NOTE | 2018-12-29 18:06 | PN ---
Subjective - Subjective Date of Service: 12/29/18 Service Type: 74481 Hosp care 25 min moderate complexity Subjective: Mr. Mcintyre reports that he wa little anxious today because of being here. Says he feels much better with regards to his mood. Slept good and eating better than before. Wants to know when can he go home. Stays to self a lot but when approached smiles and answer all questions politely. Denies hallucinations, delusions or SI. Objective - General Observations Appearance: Well Groomed Appears Stated Age: Yes Stature: WNL Posture: WNL Eye Contact: Average Behavior/Activity: WNL - Interaction Observations Attitude Towards Examiner: Cooperative Stated Mood: Euthymic Affect: Full Speech Pattern/Tone: Clear, Appropriate, Normal Volume Thought Process: Coherent, Goal Directed Perception: WNL Thought Content: WNL Hallucination Type: None Delusion Type: None - Cognitive Function Orientation: A&O x 4 Level of Consciousness: Awake, Alert, Appropriate Cognition: WNL Estimated Intelligence: Normal Insight: WNL Judgment Within Normal Limits: Yes Ability to Make Reasonable Decisions: Mildly Impaired - Medication Compliance Cooperative with Inpatient Medication Regimen: Yes - Group Participation Participates in Group Activities: No Assessment - Assessment Merits Inpatient Hospitalization: For Immediate Safety, Consolidate Improvements , Pending Safe DC Plan Clinical Impression: Appears to be improving but needs more time. Plan - Plan Treatment Plan: Name: DAVONTE MCINTYRE Birthdate: 1955 [id number] Medications: Current Medications Acetaminophen (Tylenol Tab*) 650 mg PO Q4H PRN PRN Reason: for pain; or Temp >101 F Al Hydrox/Mg Hydrox/Simethicone (Maalox Plus*) 30 ml PO Q4H PRN PRN Reason: INDIGESTION Albuterol (Ventolin Hfa Inhaler*) 2 puff INH Q4H PRN PRN Reason: SHORTNESS OF BREATH Ascorbic Acid (Vitamin C Tab*) 500 mg PO DAILY [facility] Last Admin: 12/29/18 10:13 Dose: 500 mg Ethambutol HCl (Myambutol Tab*) 800 mg PO DAILY [facility] Last Admin: 12/29/18 10:12 Dose: 800 mg Ferrous Sulfate (Ferrous Sulfate Tab*) 325 mg PO DAILY [facility] Last Admin: 12/29/18 10:18 Dose: Not Given Isoniazid (Isoniazid Tab*) 300 mg PO DAILY [facility] Last Admin: 12/29/18 10:11 Dose: 300 mg Linezolid (Zyvox Tab*) 600 mg PO DAILY [facility] Last Admin: 12/29/18 10:12 Dose: 600 mg Mirtazapine (Remeron Tab*) 15 mg PO BEDTIME [facility] Last Admin: 12/28/18 21:44 Dose: 15 mg Multivitamins/Minerals (Theragran/Minerals Tab*) 1 tab PO DAILY [facility] Last Admin: 12/29/18 10:13 Dose: 1 tab Pyridoxine HCl (Vitamin B6 Tab*) 100 mg PO DAILY [facility] Last Admin: 12/29/18 10:12 Dose: 100 mg
[2018-12-29] MEDS: Mirtazapine TAB* 15 MG PO SCH (20:29)
[2018-12-30] MEDS: ETHAMBUTOL 400 MG PO SCH (09:39)
[2018-12-30] MEDS: Linezolid TAB* 600 MG PO SCH (09:40)
[2018-12-30] MEDS: Ascorbic Acid TAB* 500 MG PO SCH (09:40)
[2018-12-30] MEDS: ISONIAZID 300 MG PO SCH (09:40)
[2018-12-30] MEDS: Multivitamins/Minerals TAB PO SCH (09:40)
[2018-12-30] MEDS: Pyridoxine TAB* 50 MG PO SCH (09:40)
[2018-12-30] MEDS: Ferrous Sulfate TAB* 325 MG PO SCH (09:41)
[2018-12-30] MEDS ORDERED: Sodium Chloride(INHALANT) 7%* 4 ML NEB.SOLN INH SCH (11:00)
--- NOTE | 2018-12-30 15:38 | PN ---
Subjective - Subjective Date of Service: 12/30/18 Service Type: 79984 Hosp care 15 min low complexity Subjective: Mr. Mcintyre is tolerating initiation of mirtazapine, although it does cause some residual sedation in the mornings. He presents as weak and somatic but continues to strenuously deny SI and is requesting discharge to home. Staff observes that his somatic complaints tend to get worse when his family visits. His , Jose Head, comes in for a family meeting and reports that she was successful in getting the next 12 weeks off from work from [place] and will be increasing her supervision of her in the home setting. She feels comfortable taking him home and assures me that she will lock his medicines in a safe box that only she has the sosa to. An additional source of supervision is the [facility], who sends a roofing sales representative daily to Mr. Mcintyre's home to make sure he takes his tuberculosis medicine. They are willing to see a provider at the clinic for follow up after discharge. I briefly spoke with ID provider Dr. Paniagua who reduced the patient's isoniazid over the weekend. Objective - General Observations Appearance: Neat Appears Stated Age: No Stature: Thin Posture: WNL Eye Contact: Average Behavior/Activity: WNL - Interaction Observations Attitude Towards Examiner: Cooperative, Anxious Stated Mood: Anxious Affect: Restricted Speech Pattern/Tone: Quiet Volume Thought Process: Coherent Perception: WNL Thought Content: WNL Hallucination Type: None Delusion Type: None - Cognitive Function Orientation: A&O x 4 Level of Consciousness: Awake Cognition: WNL Estimated Intelligence: Above Normal Insight: WNL Judgment Within Normal Limits: Yes - Medication Compliance Cooperative with Inpatient Medication Regimen: Yes - Group Participation Participates in Group Activities: No Assessment - Assessment Merits Inpatient Hospitalization: Consolidate Improvements, Pending Safe DC Plan Inpatient DSM-V Dx: F19.94 Clinical Impression: 63 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 The patient has probable treatment-emergent side-effects of psychotic depression, insomnia and suicidality related to the medication isoniazid. The ID service (Dr. Paniagua) is following and has decreased isoniazid. The patient's presentation is likely a confluence of psychosomatic, cultural and neuropsychiatric issues. BSU: Problem List - Patient Problems (1) Substance or medication-induced depressive disorder Current Visit: No Status: Acute Priority: High Code(s): F19.94 - OTH PSYCHOACTIVE SUBSTANCE USE, UNSP W MOOD DISORDER; F32.89 - OTHER SPECIFIED DEPRESSIVE EPISODES SNOMED Code(s): 53772759 Plan - Plan Treatment Plan: Name: DAVONTE MCINTYRE Birthdate: 1955 [id number] We have started a trial of mirtazapine 15mg PO qhs, which he is mostly tolerating. Pending continued safety planning and follow up arrangements he will likely be discharged tomorrow (12/31) to his home. Continued Medication Management: Start Medication Medications: Current Medications Acetaminophen (Tylenol Tab*) 650 mg PO Q4H PRN PRN Reason: for pain; or Temp >101 F Al Hydrox/Mg Hydrox/Simethicone (Maalox Plus*) 30 ml PO Q4H PRN PRN Reason: INDIGESTION Albuterol (Ventolin Hfa Inhaler*) 2 puff INH Q4H PRN PRN Reason: SHORTNESS OF BREATH Ascorbic Acid (Vitamin C Tab*) 500 mg PO DAILY REPLACED BY [facility] Last Admin: 12/30/18 09:40 Dose: 500 mg Ethambutol HCl (Myambutol Tab*) 800 mg PO DAILY REPLACED BY [facility] Last Admin: 12/30/18 09:39 Dose: 800 mg Isoniazid (Isoniazid Tab*) 150 mg PO ONCE ONE Stop: 12/31/18 10:01 Linezolid (Zyvox Tab*) 600 mg PO DAILY REPLACED BY [facility] Last Admin: 12/30/18 09:40 Dose: 600 mg Mirtazapine (Remeron Tab*) 15 mg PO BEDTIME REPLACED BY [facility] Last Admin: 12/29/18 20:29 Dose: 15 mg Multivitamins/Minerals (Theragran/Minerals Tab*) 1 tab PO DAILY REPLACED BY [facility] Last Admin: 12/30/18 09:40 Dose: 1 tab Pyridoxine HCl (Vitamin B6 Tab*) 100 mg PO DAILY REPLACED BY [facility] Last Admin: 12/30/18 09:40 Dose: 100 mg Sodium Chloride (Hyper-Jagdeep 7%*) 4 ml INH .SEE ORDERS REPLACED BY [facility] Last Admin: 12/30/18 14:33 Dose: 4 ml - Discharge Plan Discharge Plan: Outpatient Follow Up Outpatient Program: [facility]
--- NOTE | 2018-12-30 17:00 | PN ---
Progress Note - Progress Note Date of Service: 12/30/18 SOAP: Subjective: CC: overdose HPI: 63 year old man with pulmonary TB and tramadol OD, sleeping a little more. Wants to avoid food because it is too hot. No diarrhea. No cough or CP. Objective: Vital Signs Temp 36.4 C 12/30/18 08:00 Pulse 92 12/30/18 08:00 Resp 16 12/30/18 12:04 BP 126/87 12/30/18 08:00 Pulse Ox 97 12/30/18 08:00 Gen:awake, no distress Neuro: alert, Ox3 HEENT: no thrush Heart:RRR no murmur Lungs:CTA BL Abd:+BS NTND soft Skin: no rash Microbiology 12/30/18 14:12 Acid Fast Bacilli Smear - Final Respiratory - Sputum Induced Assessment: 1. pulmonary TB, has had 3 months of treatment, AFB culture x3 pending 2. intolerance to multiple TB drugs, question of INH contributing to his mood disorder 3. weight loss due to TB medications and/or depression Plan: 1. continue INH , vit B6, linezolid 600 mg daily, ethambutol 800 mg daily; will adjust INH dose to 200 mg daily 2. nutrition will try adding calorie supplements 3. mirtazipine Discussed with Dr Carmen
[2018-12-30] MEDS: Mirtazapine TAB* 15 MG PO SCH (20:56)
[2018-12-31] MEDS: ETHAMBUTOL 400 MG PO SCH (08:46)
[2018-12-31] MEDS: Linezolid TAB* 600 MG PO SCH (08:47)
[2018-12-31] MEDS: Ascorbic Acid TAB* 500 MG PO SCH (08:47)
[2018-12-31] MEDS: Pyridoxine TAB* 50 MG PO SCH (08:47)
[2018-12-31] MEDS: Multivitamins/Minerals TAB PO SCH (08:50)
[2018-12-31] MEDS ORDERED: ISONIAZID 300 MG PO ONE (10:00)
[2018-12-31 11:06] VITALS: BP 122/83
--- NOTE | 2018-12-31 14:25 | DS ---
Amended report to correct date of visit to read date of admission. PSYCHIATRIC DISCHARGE SUMMARY: DATE OF ADMISSION: 12/27/18 DATE OF DISCHARGE: 12/31/18 DISCHARGE DIAGNOSES: Franklin I: Isoniazid induced depressive disorder, rule out major depressive disorder. Franklin II: Deferred. CONDITION AT THE TIME OF DISCHARGE: The patient has steadfastly denied suicidal ideations throughout his hospital stay. He is requesting discharge to the home environment. In preparation for this, we have had several days of safety planning with his family. His has taken 12 weeks off of work from [place] in order to stay home and provide supervision. The family has gotten a safe to lock his medications in and he will be administered medicines directly by his . He will also be visited on a daily basis by members of the [facility] in order to supervise his administration of tuberculosis medications. Dr. Baljeet Paniagua of the infectious disease department has been monitoring the patient closely and is aware of problematic neuropsychiatric side effects with isoniazid and this medication has been reduced from 300 to 200 mg daily. In addition, the patient has been started on the antidepressant mirtazapine, 15 mg nightly, which he is tolerating well. At this time, both the patient and his family are eager for discharge and we feel that he is safe enough to receive care in the less-restrictive outpatient setting. He is agreeable with followup management by [facility]. He has been safe on all checks. MENTAL STATUS EXAM: At the time of discharge, the patient is a frail appearing aging male, dressed in a thin jacket. He is wearing eye glasses. He is calm and cooperative. Speech is fluent Thai with a heavy lao accent. Mood appears to be euthymic with a somewhat anxious affect. Thought process is linear, goal directed. Thought content is significant for his desire to be discharged from the hospital. He is denying suicidal or homicidal ideations. He is denying auditory or visual hallucinations. There is no evidence of paranoia currently. Insight and judgement are fair given his willingness to follow up with antidepressant as well as tuberculosis medications. Cognitively , he is awake and alert with what would appear to be high average intellect by virtue of his academic history. DISCHARGE INSTRUCTIONS TO THE PATIENT: Are as follows: Part A. Medications: He is on: 1. Vitamin B6 100 mg daily. 2. Therapeutic multivitamin 1 tablet daily. 3. Linezolid 600 mg daily. 4. Isoniazid 200 mg daily. 5. Ethambutol 800 mg daily. 6. Vitamin C 500 mg daily. 7. Albuterol 2 puffs as needed for wheezing. 8. Mirtazapine 15 mg p.o. q.h.s. Part B: Diet is regular. Part C: Activities as tolerated. The patient is a nonsmoker. There are no laboratory or diagnostic studies pending at the time of discharge. Part D: Followup care: The patient will be seen at the [facility] on January 01 at 10:45 a.m. He will also be seen by the [facility] today in his home, December 31, sometime this afternoon. He will be seen Dr. Paniagua with Infectious Diseases on January 09 at 04:00 p.m. Part E: Substance abuse followup is nonapplicable. Part F: Disposition: The patient will be going home. 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 The patient was initially seen in the ICU where he was somnolent and unable to give much history. I did rely on his , Jose, and his daughters Lolly and Conner for collateral history. According to the family the patient had no previous psychiatric history. He had been living and working for the [email or web address] [place] [place] in [place] until developing complications of pulmonary tuberculosis, which forced him to retire early. Then they moved back to the [facility] where he used to reside until 2007 and in October, he started a trial of several antibiotic therapies for treatment-resistant TB. These medications initially included isoniazid and ethambutol, although linezolid was added later. The family describes him as extremely sensitive to medications and they say that shortly after starting isoniazid and ethambutol, he started to develop severe blurred vision, nausea, and insomnia. He was given a trial of zolpidem and there was an episode in late November in which he was admitted to [facility] after having over utilized this in combination with some [id number] soporifics. My understanding is that he was insistent at that time that he only overtook these medicines to help him sleep. According to the family, the patient thereafter started developing signs and symptoms of paranoia. He was convinced that the government was monitoring his behaviors and became obsessive about a computer that belonged to the [employer] which he had lost. Later, he started making quasi-suicidal statements to the effect that he could no longer live with the pain and nausea and that he might as well . Things came to a head on the morning of admission, in which his left him in relatively good spirits at home. Later, he would not respond to her phone calls and text messages, and she raced home fearing something had happened. There she found him unconscious next to empty medication bottles that had been dispensed with 15 and 60 pills of tramadol. She believed that he had taken utmost about 5 tablets out of each supply previous to this. The family is convinced that the patient'S presentation is a neuropsychiatric reaction to his antibiotic therapy. Mr. Mcdaniel presented as arousable, but appeared to be confused, although he told other clinicians as recently as that morning that the overdose was suicidal in nature. He denied this with me, insisting that it was only an attempt to get sleep. He was highly somatic with complaints of nausea and pain in his abdomen and his extremities. Part B: Psychiatric treatment rendered: The patient was transferred from the medical service to the BSU on the 27 of December, at which time, we continued his current outpatient medication regimen, but also added a trial of mirtazapine 15 mg p.o. q.h.s. The reason for this selection was that there is a potential for serotonin syndrome with linezolid and, therefore, more powerful serotonergic medications are contraindicated. Mirtazapine has somewhat muted serotonergic activity and so we went with a trial of this. An additional benefit of mirtazapine is that it is appetite-stimulating and sedating in order to help with sleep. During this hospitalization, Mr. Mcdaniel continued to deny any further suicidal ideations. We were able to meet several times with his in order to safety plan for his medications. She bought a safe that would be locked with only her having access to it and she agreed to administer his medications, with the exception of the tuberculosis medicines, which would be administered daily by the [facility]. While he was here, he was minimally involved in group programming and appeared to be culturally uncomfortable with the BSU setting. He mostly stuck to himself, but we did notice improvement in his sleep and appetite. Because of food preferences, we allowed his to bring in Sets[place] cooked meals, which he ate heartily. During this hospitalization, the patient's treatment was co-managed by the infectious disease service. Dr. Paniagua saw him several times and reduced his isoniazid dose from [address] Paniagua did raise the question of cultural and psychosomatic issues in addition to the possible neuropsychiatric effects of isoniazid. We did observe some of these issues on our unit in that the patient often appeared higher functioning when his family was not here, but upon their arrival, he would appear to be more somatic, weak and anxious. It is uncertain what possible explanation there could be for this, whether it may be cultural versus a form of primary gain in which he is seeking unconsciously to play the sick role. At any rate, he was adherent with all treatments including sputum collection for his tuberculosis condition and we did have some interactions with the [facility] to coordinate further care. At this time, the patient is agreeable to following up on the outpatient basis with [facility] and we feel that he is safe for discharge. [id number]/[facility] #: [id number] TURNER
== END 2018-12-31 12:15 | disposition home or self-care (01) | DRG 776 ==
LOC: BSU 17:31
PROVIDERS: ADMIT Psychiatry & Neurology Psychiatry; ATTEND Psychiatry & Neurology Psychiatry
DX: F19.94 Other psychoactive substance use, unspecified with psychoactive substance-induced mood disorder (principal); R45.851 Suicidal ideations; A15.7 Primary respiratory tuberculosis; F32.9 Major depressive disorder, single episode, unspecified; Z16.24 Resistance to multiple antibiotics; Z79.899 Other long term (current) drug therapy
CPT/HCPCS: 36415; 80061; 83036; 87116; 87206; 94640; 99222; 99231; 99232; 99238; A9270-GY

== ENCOUNTER 2019-02-09 02:52 | Inpatient (IN) | payer BC ==
--- NOTE | 2019-02-09 03:22 | ED ---
Psychiatric Complaint - HPI Summary HPI Summary: A 63 y/o male presents to [facility] with "increasingly severe psychotic problems" for the past few weeks, per . The patient has been taking medications for Tuberculosis for months. The patient's thinks that side effects of these medications may have caused his symptoms. He has reportedly had difficulty sleeping and worsening depression. His thought that one day the patient was trying to kill himself, even though the patient never said it, by going to the falls. Today the patient called 911 saying "save my ". His is unsure if he called because he was unsure if he would harm his or if someone else would harm his . - History Of Current Complaint Hx Obtained From: Patient Onset/Duration: Gradual Onset, Lasting Weeks, Still Present Timing: Weeks Severity Initially: Mild Severity Currently: Mild Character: Depressed Aggravating Factor(s): Nothing Alleviating Factor(s): Nothing Associated Signs And Symptoms: Positive: Sleep Disturbance Related History: Positive For: Prior Psychiatric Issues Has Suicidal: Reports: Thoughts - Per , he may be suicidal - Allergies/Home Medications Allergies/Adverse Reactions: Allergies Allergy/AdvReac Type Severity Reaction Status Date / Time azithromycin Allergy Unknown Verified 02/09/19 19:58 Reaction Details levofloxacin Allergy Unknown Verified 02/09/19 19:58 Reaction Details Tetracyclines Allergy Unknown Verified 02/09/19 19:58 Reaction Details PMH/Surg Hx/FS Hx/Imm Hx Endocrine/Hematology History: Reports: Hx Anemia - Fe deficient Denies: Hx Diabetes Cardiovascular History: Denies: Hx Hypertension GI History: Reports: Other GI Disorders - PUD History: Denies: Hx Renal Disease Sensory History: Reports: Hx Contacts or Glasses Denies: Hx Hearing Aid, Hx Hearing Problem Opthamlomology History: Reports: Hx Contacts or Glasses Psychiatric History: Reports: Hx Suicide Attempt - Surgical History Surgery Procedure, Year, and Place: 2/3 stomach removed. Infectious Disease History: Yes Infectious Disease History: Reports: Hx Tuberculosis - Pt cleared by Dr. Sanders for no airborne precautions. Charge aware. Denies: Traveled Outside the [place] in Last 30 Days - Family History Known Family History: Negative: Hypertension, Diabetes - Social History Alcohol Use: None Hx Substance Use: No Substance Use Type: Reports: None Hx Tobacco Use: No Smoking Status (MU): Never Smoked Tobacco Review of Systems Negative: Fever Positive: Other - "increasingly severe psychotic problems" All Other Systems Reviewed And Are Negative: Yes Physical Exam - Summary Physical Exam Summary: Appearance: Elderly, frail, man who appears depressed and upset Skin: Warm, dry, no obvious rash Eyes: sclera anicteric, no conjunctival pallor ENT: mucous membranes moist, pharynx appears normal Neck: Supple, nontender Respiratory: Clear to auscultation, no signs of respiratory distress Cardiovascular: Normal S1, S2. No murmurs. Normal distal pulses in tibial and radial bilaterally. Abdomen: Soft, nontender, normal active bowel sounds present Musculoskeletal: Normal, Strength/ROM Intact Neurological: depressed and upset Psychiatric: affect is normal, does not appear anxious or depressed Triage Information Reviewed: Yes Vital Signs On Initial Exam: Initial Vitals Temp Pulse Resp BP Pulse Ox 97.3 F 66 20 157/100 95 02/09/19 03:00 02/09/19 03:00 02/09/19 03:00 02/09/19 03:00 02/09/19 03:00 Vital Signs Reviewed: Yes Diagnostics - Vital Signs Vital Signs Temp Pulse Resp BP Pulse Ox 02/09/19 03:00 97.3 F 66 20 157/100 95 - Laboratory Result Diagrams: 02/13/19 13:39 02/13/19 13:39 Lab Statement: Any lab studies that have been ordered have been reviewed, and results considered in the medical decision making process. Course/Dx - Course Course Of Treatment: A 63 y/o male presents to [facility] with "increasingly severe psychotic problems" for the past few weeks, per . The physical exam revealed that the patient is an elderly, frail, man who appears depressed and upset. In the ED course the patient was given Geodon PO. Blood work, chemistries, urines and toxicology obtained and the patient has been cleared for [facility]HE. This patient will be signed out from Dr. Falcon to Dr. Marsh upon shift change at 07:00 02/09/19 pending MHE. - Differential Dx/Clinical Impression Provider Diagnosis: Major depressive disorder with psychotic features Discharge - Sign-Out/Discharge Documenting (check all that apply): Sign-Out Patient Signing out patient TO: Caleb Marsh - pending MHE Patient Received Moderate/Deep Sedation with Procedure: No - Discharge Plan Condition: Stable Disposition: PSYCHIATRIC FACILITY-[facility] - Billing Disposition and Condition Condition: STABLE Disposition: Psychiatric Facility [facility] - Attestation Statements Document Initiated by Scribe: Yes Documenting Scribe: Nirav Montes Provider For Whom Rama is Documenting (Include Credential): Elias Falcon MD Scribe Attestation: Nirav Friedman, scribed for Elias Falcon MD on 02/14/19 at 0028. Scribe Documentation Reviewed: Yes Provider Attestation: The documentation as recorded by the Nirav nunn accurately reflects the service I personally performed and the decisions made by me, Elias Falcon MD Status of Scribe Document: Viewed
[2019-02-09 03:26] LABS: ABS Eosinophils 0.1 10^3/ul (0-0.6); ABS Lymphocytes 1.4 10^3/ul (1.0-4.8); ABS Monocytes 0.6 10^3/ul (0-0.8); Hematocrit 41 % (42-52); Hemoglobin 13.6 g/dL (14.0-18.0); Lymphocyte % 22.9 %; Mean Corpuscular HGB Conc 33 g/dL (31-36); Mean Corpuscular Hemoglobin 30 pg (27-31); Mean Corpuscular Volume 91 fL (80-94); Mean Platelet Volume 7.3 fL (7.4-10.4); Platelet Count 330 10^3/uL (150-450); Red Blood Count 4.49 10^6 /uL (4.18-5.48); Red Cell Distribution Width 16 % (10-15); White Blood Count 6.2 10^3/uL (3.5-10.8)
[2019-02-09] MEDS ORDERED: Ziprasidone CAP* 80 MG PO ONE ×2 (03:28)
--- OUTSIDE RECORDS SUMMARY | 2019-02-09 03:40 | XMS REPORT | Continuity of Care Document ---
:1955 External Reference #:[id number] Author Name Cora Butcher Care Team Providers Name Role Phone Elise Zeng MD Primary Care Physician Unavailable Payers Date Identification Numbers Payment Provider Subscriber Effective: 2014 Policy Number: [id number] BS Fep Darya Mcintyre Group Number: [id number] [address] Group Name: [id number] [id number] PayID: [id number] Family History Date Family Member(s) Observation Comments General No Current Problems Social History Type Date Description Comments Sex Unknown Tobacco Use Start: Unknown Patient has never smoked Smoking Status Reviewed: 01/23/19 Patient has never smoked Allergies, Adverse Reactions, Alerts Active Allergies Reaction Severity Comments Date Tetracycline rash 11/26/2018 Levofloxacin body pain, sleeplessness 11/26/2018 Azithromycin 12/19/2018 Moxifloxacin 01/23/2019 Medications Active Medications SIG Qnty Indications Ordering Provider Date Isoniazid 2 by mouth daily 60tabs Baljeet D. 12/30/2018 100mg Tablets Katherin Orr Linezolid one by mouth once 30tabs A15.0 Baljeet D. 11/29/2018 600mg Tablets a day Katherin Orr Ethambutol HCL 2 by mouth daily 60tabs Baljeet D. 400mg Katherin Orr Tablets Pyridoxine HCL 1 by mouth every Unknown 100mg day Tablets Ventolin HFA 2 puffs every 4 Unknown hours as needed 108(90Base) mcg/Act Aerosol Ascorbic Acid 1 by mouth every Unknown 500mg day Tablets Multiple Vitamin 1 by mouth every Unknown day Tablets Mirtazapine take 1 tablet by 30tabs Baljeet DPriti 15mg mouth at bedtime Katherin Orr Tablets History Medications Ibuprofen 1 by mouth twice 30tabs R07.9 Baljeet DPriti 11/26/2018 - 600mg Tablets daily as needed Katherin Orr 11/28/2018 for chest pain Zolpidem Tartrate 1 by mouth at 14tabs Baljeet Gagnon 11/26/2018 - 5mg bedtime if Katherin Orr 12/10/2018 Tablets needed for sleep Oxycodone-Acetaminoph take one tablet 30tabs R07.9 Elise Zeng MD 2018 - en every 6 hours as 01/22/2019 5-325mg Tablets needed for pain Isoniazid 1 tab by mouth 30tabs Baljeet D. - 300mg Tablets each day Katherin Orr 12/30/2018 Moxifloxacin HCL 1 by mouth every Unknown - 400mg day 12/18/2018 Tablets Pyrazinamide 2 tab by mouth Unknown - 500mg daily 11/26/2018 Tablets Tramadol HCL 1 tablets by Unknown - 50mg mouth every 6 01/22/2019 Tablets hours as needed pain Ferrous Sulfate 1 by mouth every Unknown - day 11/13/2018 325(65Fe) mg Tablets Vital Signs Date Vital Result Comment 01/23/2019 3:57pm Height 68.5 inches 5'8.50" Weight 94.38 lb Heart Rate 60 /min BP Systolic Sitting 118 mmHg BP Diastolic Sitting 60 mmHg Respiratory Rate 14 /min Body Temperature 97.0 F O2 % BldC Oximetry 97 % BMI (Body Mass Index) 14.1 kg/m2 01/09/2019 4:19pm Height 68.5 inches 5'8.50" Weight 94.12 lb Heart Rate 60 /min BP Systolic Sitting 126 mmHg BP Diastolic Sitting 96 mmHg Respiratory Rate 14 /min Body Temperature 98.0 F BMI (Body Mass Index) 14.1 kg/m2 12/19/2018 4:17pm Height 68.5 inches 5'8.50" Weight [...] Date Facility Test Result H/L Range Note Comp Metabolic Panel 01/13/2019 [facility] Sodium 139 mmol/L N 135-145 [address] [place] [address] [phone] Potassium 4.3 mmol/L N 3.5-5.0 Chloride 107 mmol/L N 101-111 Co2 Carbon Dioxide 25 mmol/L N 22-32 Anion Gap 7 mmol/L N 2-11 Glucose 99 mg/dL N 70-100 Blood Urea Nitrogen 21 mg/dL N 6-24 Creatinine 0.64 mg/dL Low 0.67-1.17 BUN/Creatinine Ratio 32.8 High 8-20 Calcium 9.4 mg/dL N 8.6-10.3 Total Protein 6.7 g/dL N 6.4-8.9 Albumin 3.8 g/dL N 3.2-5.2 Globulin 2.9 g/dL N 2-4 Albumin/Globulin Ratio 1.3 N 1-3 Total Bilirubin 0.40 mg/dL N 0.2-1.0 Alkaline Phosphatase 121 U/L High 34-104 Alt 38 U/L N 7-52 Ast 34 U/L N 13-39 Egfr Non- 126.3 >60 Egfr 152.8 >60 1 CBC Auto Diff 01/13/2019 [facility] White Blood 9.8 10^3/uL N 3.5-10.[address] [place] [address] [phone] Red Blood Count 4.70 10^6/uL N 4.18-5.48 Hemoglobin 13.6 g/dL Low 14.0-18.0 Hematocrit 42 % N 42-52 Mean Corpuscular Volume 89 fL N 80-94 Mean Corpuscular Hemoglobin 29 pg N 27-31 Mean Corpuscular HGB Conc 32 g/dL N 31-36 Red Cell Distribution Width 20 % High 10-15 Platelet Count 367 10^3/uL N 150-450 Mean Platelet Volume 8.0 fL N 7.4-10.4 Abs Neutrophils 7.9 10^3/uL High 1.5-7.7 Abs Lymphocytes 1.1 10^3/uL N 1.0-4.8 Abs Monocytes 0.7 10^3/uL N 0-0.8 Abs Eosinophils 0.1 10^3/uL N 0-0.6 Abs Basophils 0.0 10^3/uL N 0-0.2 Abs Nucleated RBC 0.0 10^3/uL Granulocyte % 79.8 % Lymphocyte % 11.6 % Monocyte % 7.3 % Eosinophil % 0.8 % Basophil % 0.5 % Nucleated Red Blood Cells % 0.1 CBC Auto 12/25/2018 [facility] White Blood 20.6 10^3/uL High 3.5-10.[address] [place] [address] [phone] Red Blood Count 4.91 10^6/uL N 4.18-5.48 [...] Blood Cells % 0.0 Laboratory test 12/25/2018 [facility] Lactic Acid 12.6 mmol/L High 0.5-2.0 [address] [place] [address] [phone] Comp Metabolic 12/25/2018 [facility] Sodium 139 mmol/L N 135- [address] [place] [address] [phone] Potassium 3.2 mmol/L Low 3.5-5.0 Chloride 102 [...] Egfr Non- 96.2 >60 Egfr 116.5 >60 3 Laboratory test 12/25/2018 [facility] Creatine 82 U/L N 10- [address] Kinase(CK) [place] [address] [phone] Troponin-I (TnI) 0.00 ng/mL <0.04 4 Acetaminophen < 15 g/mL 5 Alcohol < 10 mg/dL N <10 Salicylate < 2.50 mg/dL <30 TSH (Thyroid Stim Horm) 4.42 mcIU/mL N 0.34-5.60 Urine Drug 12/25/2018 [facility] Urine None Detected None Detect SCR ED & [address] [place] [address] Screen [phone] Urine Barbiturates Screen None Detected None Detect Urine Benzodiazepine Screen None Detected None Detect Urine Cannabinoids Screen None Detected None Detect Urine Cocaine Screen None Detected None Detect Urine Opiates Screen None Detected None Detect Urine Phencyclidine Screen None Detected None Detect 6 Urinalysis Profile 12/25/2018 [facility] Urine Color Yellow [address] [place] [address] [phone] Urine Appearance Cloudy Urine Specific [place] 1.012 N 1.010-1.030 Urine pH 6.0 N 5-9 Urine Urobilinogen Negative Negative Urine Ketones Negative Negative Urine Protein Negative Negative Urine Leukocytes Negative Negative Urine Blood 1+ Abnormal Negative * * Abnormal Negative 7 Urine Nitrite Negative Negative Urine Bilirubin Negative Negative Urine Glucose 1+(50 mg/dL) Abnormal Negative Urine White Blood Cell Trace(0-5/hpf) Absent Urine Red Blood Cell 3+(>10/hpf) Abnormal Absent Urine Bacteria Absent Absent Urine Squamous Epithelial Cell Present Abnormal Absent Urine Sperm Present Abnormal Absent Urine Culture And 12/25/2018 [facility] Urine Culture SEE RESULT [address] [place] [address] [phone] Comp Metabolic 12/20/2018 [facility] Sodium 132 mmol/L Low 135 -[address] [place] [address] [phone] Potassium 3.7 mmol/L N 3.5-5.0 Chloride 99 [...] Egfr Non- 110.3 >60 Egfr 133.4 >60 9 CBC Auto Diff 12/20/2018 [facility] White Blood 7.6 10^3/uL N 3.5-10.[address] [place] [address] [phone] Red Blood Count 4.69 10^6/uL N 4.18-5.48 [...] Red Blood Cells % 0.0 Laboratory test 12/05/2018 [facility] Troponin-I (TnI) 0.00 ng/ mL <0.04 [address] [place] [address] [phone] Laboratory test 12/05/2018 [facility] Folic Acid > 20.00 > 3.[address] (Folate) ng/[place] [address] [phone] Vitamin D Total 25(Oh) 31.6 ng/mL N 20-50 11 Prealbumin 24 mg/dL N 18-38 TSH (Thyroid Stim Horm) 6.92 mcIU/mL High 0.34-5.60 Free T4 (Free Thyroxine) 1.13 ng/dL High 0.61-1.12 Laboratory test 12/05/2018 [facility] Vitamin B12 1254 pg/mL High 180-[address] [address] [phone] Vitamin B1 (Whole Blood) 186 nmol/L Abnormal 70-180 13 1 Because ethnic data is not always readily [...] 15-29 5 Kidney failure <15 (or dialysis) 2 Critical Result LACT:12.6 Called to [id number] at: 14:31:16 by:[id number] Read back by:[id number] [facility] Severe Sepsis and Septic Shock Management Bundle Measure requires all lactic acids initially measuring >2.0 mmol/L be repeated. 3 Because ethnic data is not always readily [...] 15-29 5 Kidney failure <15 (or dialysis) 4 Troponin-I testing on Plasma Separator Tubes (PST) has a known false positive rate of 0.20-0.40%. All positive troponins reflex immediately to secondary confirmatory testing. Using the Xi3 DxI 800 Access Immunoassay systems, the 99th percentile upper reference limit was demonstrated to be < 0.03 ng/mL. 5 Therapeutic concentration: <50 ug/mL Toxic concentration: >120 ug/mL 6 The urine specimen was tested at the listed cutoffs: Drug class test level (ng/mL) Amphetamines 500 Barbiturates 200 Benzodiazepine metabolites 200 Cocaine metabolites 150 Cannabinoids 50 Opiates 300 Pcp 25 Specimen was received without chain of custody. Results should be used for medical purposes only. 7 *Ascorbic acid is present which may interfere with detection of blood. 8 SEE RESULT BELOW Name: DARYA MCINTYRE : [address]: Charlotte Gallagher MD Acct: [id number] Unit: [id number] AGE: 63 Location: [place] [address] Re12/26/18 SEX: M Status: ADM IN SPEC: [id number] CHARITO: 12/25/18 [facility] DR: Jai Rodriguez MD REQ: [id number] RECD: 12/25/18 STATUS: COMP [facility] DR: Elise Zeng MD _ SOURCE: URINE SPDESC: ORDERED: Urine Culture Procedure Result Reported Site Urine Culture Final 12/27/18- 1010 ML No Growth (<1,000 CFU/mL) * ML - Main Lab . END OF REPORT DEPARTMENT OF PATHOLOGY, [address] [place] [address] Froilan Ortiz M.D. Director [facility] # [id number] 9 Because ethnic data is not always readily [...] 15-29 5 Kidney failure <15 (or dialysis) 10 Troponin-I testing on Plasma Separator Tubes (PST) has a known false positive rate of 0.20-0.40%. All positive troponins reflex immediately to secondary confirmatory testing. Using the Xi3 DxI 800 Access Immunoassay systems, the 99th percentile upper reference limit was demonstrated to be < 0.03 ng/mL. 11 Total 25-Hydroxyvitamin D2 and D3 (25-OH-VitD) <10 ng/mL (severe deficiency) 10-19 ng/mL (mild to moderate deficiency) 20-50 ng/mL (optimum levels) 51-80 ng/mL (increased risk of hypercalciuria) >80 ng/mL (toxicity possible) 12 Normal Range 180 to 914 Indeterminate Range 145 to 180 Deficient Range <145 13 ADDITIONAL INFORMATION This test was developed and its performance characteristics determined by [facility] in a manner consistent with CLIA requirements. This test has not been cleared or approved by the U.S. Food and Drug Administration. Test Performed by: [facility] [address] [place] [address] Procedures Date Code Description Status 11/06/2018 [address]39 ECHO Transthorasic Realtime 2D W Doppler & Color Flow Hosp Completed Encounters Type Date Location Provider Dx Diagnosis Office Visit 01/09/2019 [place] Liv Gagnon A15.0 Tuberculosis of 4:00p Infectious Diseases Katherin Orr lung Office Visit 12/30/2018 [place] Liv Gagnon A15.0 Tuberculosis of 12:32p Infectious Gissell Orr M.D. lung Office Visit 12/27/2018 [place] Liv Gagnon A15.0 Tuberculosis of 10:39a Infectious Diseases Katherin Orr lung Office Visit 12/27/2018 [facility] July T40.2x1A Poisoning by oth 10:13a Assoc,pc GEORGE Real opioids, Hospitalists accidental (unintentional), init G40.309 Gen idiopathic epilepsy, not intractable, w/o stat epi Z16.24 Resistance to multiple antibiotics D50.9 Iron deficiency anemia, unspecified E46 Unspecified protein-calorie malnutrition K27.9 Peptic ulc, site unsp, unsp as ac or chr, w/o hemor or perf Office Visit 12/26/2018 10:15a [facility] Baljeet Gagnon A15.0 Tuberculosis of For Destini Orr M.D. lung Diseases T14.91xD Suicide attempt, subsequent encounter T40.4x2D Poisoning by oth synthetic narcotics, self-harm, subs R63.4 Abnormal weight loss Office Visit 12/26/2018 [facility] Rhoda T40.2x1A Poisoning by oth 10:12a MD Vargas opioids, accidental (unintentional), init G40.309 Gen idiopathic epilepsy, not intractable, w/o stat epi G92 Toxic encephalopathy D50.0 Iron deficiency anemia secondary to blood loss (chronic) D72.829 Elevated white blood cell count, unspecified A15.0 Tuberculosis of lung Z16.24 Resistance to multiple antibiotics Office Visit 12/25/2018 [facility] Rhoda T40.2x1A Poisoning by oth 10:11a MD Vargas opioids, accidental (unintentional), init G40.309 Gen idiopathic epilepsy, not intractable, w/o stat epi G92 Toxic encephalopathy D50.0 Iron deficiency anemia secondary to blood loss (chronic) D72.829 Elevated white blood cell count, unspecified A15.0 Tuberculosis of lung Z16.24 Resistance to multiple antibiotics Office Visit 12/19/2018 4:20p [facility] Baljeet Gagnon A15.0 Tuberculosis of For Destini Orr M.D. lung Diseases H53.8 Other visual disturbances Office Visit 12/06/2018 [facility] Baljeet Gagnon G93.40 Encephalopathy, 10:26a For Destini Orr M.D. 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.0 Tuberculosis of lung Office 12/06/2018 [facility] T50.901A Poisoning by unsp Visit 11:22a Assoc,pc Montez, drug/meds/biol Hospitalists Katherin subst, accidental, init R41.82 Altered mental status, unspecified R47.01 Aphasia R07.9 Chest pain, unspecified E46 Unspecified protein-calorie malnutrition Office Visit 12/05/2018 11:21a [facility] Christie Joyner DO R47.01 Aphasia Assoc, Hospitalists R07.9 Chest pain, unspecified R41.0 Disorientation, unspecified R45.1 Restlessness and agitation F32.0 Major depressive disorder, single episode, mild Office Visit 11/29/2018 11:10a [facility] Baljeet Gagnon A15.0 Tuberculosis of For Infectious Radha Orr. lung Diseases R63.4 Abnormal weight loss Z79.2 group home (current) use of antibiotics Office Visit 11/26/2018 8:50a [facility] Baljeet Gagnon A15.0 Tuberculosis of For Infectious Kirby MPritiD. lung Diseases Z79.2 group home (current) use of antibiotics R07.9 Chest pain, unspecified R53.1 Weakness R63.4 Abnormal weight loss G47.00 Insomnia, unspecified Office Visit 11/26/2018 3:00p [facility] Internal Elise Karri, D50.9 [facility] R53.1 Weakness R07.9 Chest pain, unspecified A15.0 Tuberculosis of lung R63.4 Abnormal weight loss Office Visit 11/07/2018 10:28a [facility] Reyna A15.0 Tuberculosis of Assoc,raghu Sauceda MD lung Hospitalists Z16.24 Resistance to multiple antibiotics D50.9 Iron deficiency anemia, unspecified E46 Unspecified protein-calorie malnutrition Office Visit 11/07/2018 11:48a Pulmonology And Claudia 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.0 Tuberculosis of Sleep Services Of MD Dusty lung [facility] Office Visit 11/06/2018 10:26a [facility] Reyna A15.0 Tuberculosis of Assoc, MD Komal lung Hospitalists D50.9 Iron deficiency anemia, unspecified E46 Unspecified protein-calorie malnutrition Office Visit 11/06/2018 11:46a Pulmonology And Claudia 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 at [facility] For Infectious Thnfxjns64/11/2019 - Baljeet Orr M.D.A15.0 Tuberculosis of lungFollow up:1 uvbfpG74.1 Major depressive disorder, single episode, moderate
--- OUTSIDE RECORDS SUMMARY | 2019-02-09 03:40 | XMS REPORT | Continuity of Care Document ---
:1955 External Reference #:[id number] Author Name Chayito Fan Care Team Providers Name Role Phone Elise Zeng MD Primary Care Physician Unavailable Payers Date Identification Numbers Payment Provider Subscriber Effective: 2014 Policy Number: [id number] BS Fep Darya Mcintyre Group Number: [id number] [address] Group Name: [id number] [id number] PayID: [id number] Family History Date Family Member(s) Observation Comments General No Current Problems Social History Type Date Description Comments Sex Unknown Tobacco Use Start: Unknown Patient has never smoked Smoking Status Reviewed: 02/04/19 Patient has never smoked Allergies, Adverse Reactions, [...] Mirtazapine take 1 tablet by 30tabs Baljeet D. 15mg mouth at bedtime Katherin Orr Tablets [...] Tablets Vital Signs Date Vital Result Comment 02/04/2019 3:28pm Height 68.5 inches 5'8.50" Weight 95.50 lb Heart Rate 52 /min BP Systolic Sitting 163 mmHg BP Diastolic Sitting 89 mmHg Body Temperature 96.9 F O2 % BldC Oximetry 96 % BMI (Body Mass Index) 14.3 kg/m2 01/23/2019 3:57pm Height 68.5 inches 5'8.50" Weight [...] H/L Range Note Comp Metabolic Panel 01/13/2019 [facility] Sodium 139 mmol/L N 135-145 [address] [place] [address] [phone] Potassium 4.3 mmol/L N 3.5-5.0 Chloride 107 [...] 152.8 >60 1 CBC Auto Diff 01/13/2019 [facility] White Blood 9.8 10^3/uL N 3.5-10.[address] [place] [address] [phone] Red Blood Count 4.70 10^6/uL N 4.18-5.48 [...] Blood Cells % 0.1 CBC Auto 12/25/2018 [facility] White Blood 20.6 10^3/uL High 3.5-10.[address] [place] [address] [phone] Red Blood Count 4.91 10^6/uL N 4.18-5.48 [...] Blood Cells % 0.0 Laboratory test 12/25/2018 [facility] Lactic Acid 12.6 mmol/L High 0.5-2.0 [address] [place] [address] [phone] Comp Metabolic 12/25/2018 [facility] Sodium 139 mmol/L N 135- [address] [place] [address] [phone] Potassium 3.2 mmol/L Low 3.5-5.0 Chloride 102 [...] Egfr 116.5 >60 3 Laboratory test 12/25/2018 [facility] Creatine 82 U/L N 10- [address] Kinase(CK) [place] [address] [phone] Troponin-I (TnI) 0.00 ng/mL <0.04 4 Acetaminophen < 15 g/mL 5 Alcohol < 10 mg/dL N <10 Salicylate < 2.50 mg/dL <30 TSH (Thyroid Stim Horm) 4.42 mcIU/mL N 0.34-5.60 Urine Drug 12/25/2018 [facility] Urine None Detected None Detect SCR ED & [address] Amp[facility] [place] [address] Screen [phone] Urine Barbiturates Screen None Detected None Detect Urine Benzodiazepine Screen None Detected None Detect Urine Cannabinoids Screen None Detected None Detect Urine Cocaine Screen None Detected None Detect Urine Opiates Screen None Detected None Detect Urine Phencyclidine Screen None Detected None Detect 6 Urinalysis Profile 12/25/2018 [facility] Urine Color Yellow [address] [place] [address] [phone] Urine Appearance Cloudy Urine Specific [place] 1.012 N 1.010-1.030 Urine pH 6.0 N [...] Present Abnormal Absent Urine Culture And 12/25/2018 [facility] Urine Culture SEE RESULT [address] [place] [address] [phone] Comp Metabolic 12/20/2018 [facility] Sodium 132 mmol/L Low 135 -[address] [place] [address] [phone] Potassium 3.7 mmol/L N 3.5-5.0 Chloride 99 [...] 133.4 >60 9 CBC Auto Diff 12/20/2018 [facility] White Blood 7.6 10^3/uL N 3.5-10.[address] [place] [address] [phone] Red Blood Count 4.69 10^6/uL N 4.18-5.48 [...] Blood Cells % 0.0 Laboratory test 12/05/2018 [facility] Troponin-I (TnI) 0.00 ng/ mL <0.04 [address] [place] [address] [phone] Laboratory test 12/05/2018 [facility] Folic Acid > 20.00 > 3.[address] (Folate) ng/[place] [address] [phone] Vitamin D Total 25(Oh) 31.6 ng/mL N 20-50 11 Prealbumin 24 mg/dL N 18-38 TSH (Thyroid Stim Horm) 6.92 mcIU/mL High 0.34-5.60 Free T4 (Free Thyroxine) 1.13 ng/dL High 0.61-1.12 Laboratory test 12/05/2018 [facility] Vitamin B12 1254 pg/mL High 180-914 [address] [place] [address] [phone] Vitamin B1 (Whole Blood) 186 nmol/L Abnormal [...] dialysis) 2 Critical Result LACT:12.6 Called to [id number] at: 14:31:16 by:[id number] Read back by:[id number] [facility] Severe Sepsis and Septic Shock Management [...] immediately to secondary confirmatory testing. Using the Evolver DxI 800 Access Immunoassay systems, the 99th [...] of blood. 8 SEE RESULT BELOW Name: PARUL MCINTYRENida : [address]: Charlotte Gallagher MD Acct: [id number] Unit: [id number] AGE: 63 Location: [place] [address] Re12/26/18 SEX: M Status: ADM IN SPEC: [id number] CHARITO: 12/25/18 [facility] DR: Jai Rodriguez MD REQ: [id number] RECD: 12/25/18 STATUS: BETTE SHAH DR: Elise Zeng MD _ SOURCE: URINE [facility]: ORDERED: Urine Culture Procedure Result Reported Site Urine Culture Final 12/27/18- 1010 ML No Growth (<1,000 CFU/mL) * ML - Main Lab . END OF REPORT DEPARTMENT OF PATHOLOGY, [address] [place] [address] Froilan Ortiz M.D. Director [facility] # [id number] 9 Because ethnic data is not always [...] immediately to secondary confirmatory testing. Using the Bleachers Access Immunoassay systems, the 99th percentile upper [...] developed and its performance characteristics determined by [facility] in a manner consistent with CLIA requirements. This test has not been cleared or approved by the U.S. Food and Drug Administration. Test Performed by: [facility] - [facility] [address] [place] [address] Procedures Date Code Description Status 11/06/2018 79682 ECHO Transthorasic Realtime 2D W Doppler & Color Flow Hosp Completed Encounters Type Date Location Provider Dx Diagnosis Office Visit 01/23/2019 Dolly Gagnon A15.0 Tuberculosis of lung 3:40p Destini Orr M.D. Diseases F32.1 Major depressive disorder, single episode, moderate R63.4 Abnormal weight loss Office Visit 01/09/2019 Dolly Gagnon A15.0 Tuberculosis of 4:00p Destini Orr M.D. lung Diseases Office Visit 12/30/2018 [facility] Kay Gagnon A15.0 Tuberculosis of 12:32p Destini Orr M.D. lung Diseases Office Visit 12/27/2018 [facility] Kay Gagnon A15.0 Tuberculosis of 10:39a Destini Orr M.D. lung Diseases Office Visit 12/27/2018 [facility] T40.2x1A Poisoning by oth 10:13a Assoc,pc Farhan, [facility] opioids, Hospitalists accidental (unintentional), init G40.309 Gen idiopathic epilepsy, not intractable, w/o stat epi Z16.24 Resistance to multiple antibiotics D50.9 Iron deficiency anemia, unspecified E46 Unspecified protein-calorie malnutrition K27.9 Peptic ulc, site unsp, unsp as ac or chr, w/o hemor or perf Office Visit 12/26/2018 10:15a [facility] Baljeet Gagnon A15.0 Tuberculosis of For Destini [...] to multiple antibiotics Office Visit 12/19/2018 4:20p [facility] Baljeet Gagnon A15.0 Tuberculosis of For Destini Orr M.D. lung Diseases H53.8 Other visual disturbances Office Visit 12/06/2018 [facility] Baljeet Gagnon G93.40 Encephalopathy, 10:26a For Infectious Katherin Orr 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.0 Tuberculosis of lung Office 12/06/2018 [facility] Prabhjot T50.901A Poisoning by unsp Visit 11:22a Assoc,pc Angleussjagjit, drug/meds/biol Hospitalists Katherin subst, accidental, init R41.82 Altered mental status, unspecified R47.01 Aphasia R07.9 Chest pain, unspecified E46 Unspecified protein-calorie malnutrition Office Visit 12/05/2018 11:21a [facility] Christie Rooth, DO R47.01 Aphasia Assoc,pc Hospitalists R07.9 Chest pain, unspecified R41.0 Disorientation, unspecified R45.1 Restlessness and agitation F32.0 Major depressive disorder, single episode, mild Office Visit 11/29/2018 11:10a [facility] Baljeet Gagnon A15.0 Tuberculosis of For Infectious Katherin Orr lung Diseases R63.4 Abnormal weight loss Z79.2 long term (current) use of antibiotics Office Visit 11/26/2018 8:50a [facility] Baljeet Gagnon A15.0 Tuberculosis of For Infectious Katherin Orr lung Diseases Z79.2 long term (current) use of antibiotics R07.9 Chest pain, unspecified R53.1 Weakness R63.4 Abnormal weight loss G47.00 Insomnia, unspecified Office Visit 11/26/2018 3:00p [facility] Internal Elise Karri, D50.9 Iron deficiency Medicine - Ccmob anemia, unspecified R53.1 Weakness R07.9 Chest pain, unspecified A15.0 Tuberculosis of lung R63.4 Abnormal weight loss Office Visit 11/07/2018 10:28a [facility] Reyna A15.0 Tuberculosis of Assoc,raghu Sauceda MD lung Hospitalists Z16.24 Resistance to multiple antibiotics D50.9 Iron deficiency anemia, unspecified E46 Unspecified protein-calorie malnutrition Office Visit 11/07/2018 11:48a [facility] Claudia A15.0 Tuberculosis of [facility] 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 at [facility]/23/2019 - Elise Zeng MDF32.1 Major depressive disorder, single episode, moderateReferral:Carol Wade MD, PsychiatryNoel, Shun, HIGH LEAD YARDER, Clinical/Property Caretaker
[2019-02-09 03:41] LABS: ALT 27 U/L (7-52); AST 30 U/L (13-39); Albumin/Globulin Ratio 1.4 (1-3); Alkaline Phosphatase 71 U/L (34-104); Anion Gap 9 mmol/L (2-11); BUN/Creatinine Ratio 25.6 (8-20); Blood Urea Nitrogen 23 mg/dL (6-24); CO2 Carbon Dioxide 25 mmol/L (22-32); Calcium 9.2 mg/dL (8.6-10.3); Chloride 104 mmol/L (101-111); EGFR African American 103.1 (>60); EGFR Non-African American 85.2 (>60); Globulin 2.9 g/dL (2-4); Glucose 116 mg/dL (70-100); Potassium 3.5 mmol/L (3.5-5.0); Sodium 138 mmol/L (135-145); Total Protein 6.9 g/dL (6.4-8.9)
[2019-02-09] MEDS ORDERED: Ziprasidone * 20 MG CAP (generic Geodon) PO ONE (04:00)
[2019-02-09 04:18] LABS: Acetaminophen < 15 mcg/mL; Alcohol < 10 mg/dL (<10); Salicylate < 2.50 mg/dL (<30)
[2019-02-09 04:33] LABS: TSH (Thyroid Stimulating Horm) 2.84 mcIU/mL (0.34-5.60)
[2019-02-09 05:42] LABS: Urine Appearance Clear; Urine Bilirubin Negative (Negative); Urine Blood Negative (Negative); Urine Color Straw; Urine Glucose Negative (Negative); Urine Ketones Negative (Negative); Urine Nitrite Negative (Negative); Urine Protein Negative (Negative); Urine Specific Gravity 1.012 (1.010-1.030); Urine Urobilinogen Negative (Negative)
[2019-02-09 05:59] LABS: Urine Benzodiazepine Screen None Detected (None Detect); Urine Opiates Screen None Detected (None Detect)
--- NOTE | 2019-02-09 07:11 | ED ---
Progress - Progress Note Progress Note: Receiving sign out from Dr. Falcon at shift change 0700 pending MHE. MHE diagnosed the patient with major depressive disorder with psychotic features , and will admit the patient per Dr. Aleman, psychiatry. - Consult/PCP Time Called: 05:00 Course/Dx - Course Course Of Treatment: Receiving sign out from Dr. Falcon at shift change 0700 pending MHE. MHE diagnosed the patient with major depressive disorder with psychotic features, and will admit the patient per Dr. Aleman, psychiatry. - Diagnoses Provider Diagnoses: Major depressive disorder with psychotic features Discharge - Sign-Out/Discharge Documenting (check all that apply): Patient Departure - Admission, per MHE Patient Received Moderate/Deep Sedation with Procedure: No - Discharge Plan Condition: Stable Dis[place] [place]errals: Elise Zeng MD [Primary Care Provider] - - Billing Disposition and Condition Condition: STABLE Disposition: Psychiatric [place] [facility] - Attestation Statements Document Initiated by Scribe: Yes Documenting Scribe: Rufino Bond Provider For Whom Rama is Documenting (Include Credential): Caleb Marsh MD Scribe Attestation: Rufino Friedman, scribed for aCleb Marsh MD on 02/09/19 at 1458. Scribe Documentation Reviewed: Yes Provider Attestation: The documentation as recorded by the Rufino nunn accurately reflects the service I personally performed and the decisions made by , Caleb Marsh MD Status of Scribe Document: Viewed
[2019-02-09] MEDS ORDERED: Acetaminophen TAB* 325 MG PO PRN (14:07)
--- NOTE | 2019-02-09 14:07 | PN ---
ED Psychiatric Progress Note Date of Service: 02/09/19 Subjective: This is a 63 year-old M who is pending admission to [facility] / transfer to another psychiatric facility / discharge to home / or being observed secondary to worsening depressive symptoms, insomnia, agitation, delusions and inability to care for himself. Pt called 911 last night to report that his was in danger. He was brought here by police for MHE. He has history of 2 previous suicide attempts (by overdose), 1 previous inpatient psychiatric admission here last December, non- adherence with outpatient psychiatric care. He has TB and is followed by ID Dr. Hyde, takes INH, Remeron and Geodon. Objective: Alert, sitting on his bed, rocking back and forth, moaning but no using words to communicate. Affect is labile; mod is dysphoric. Assessment: Severely depressed patient with psychotic features. was initially against his admission, citing a previous bad experience in the [facility]. She agreed to his admission giving the lack of any less restrictive alternatives and his declining course. Plan: Admit to Adult BSU on emergency status for safety, observation, evaluation and treatment. Vital Signs Temp Pulse Resp BP Pulse Ox 97.4 F 51 19 139/81 99 02/09/19 12:03 02/09/19 12:03 02/09/19 12:03 02/09/19 12:03 02/09/19 12:03 Lab Results - Entire Visit 02/09/19 02/09/19 02/09/19 04:15 04:15 03:18 WBC RBC Hgb Hct MCV MCH MCHC RDW Plt Count MPV Neut % (Auto) Lymph % (Auto) Gaines % (Auto) Eos % (Auto) Baso % (Auto) Absolute Neuts (auto) Absolute Lymphs (auto) Absolute Monos (auto) Absolute Eos (auto) Absolute Basos (auto) Absolute Nucleated RBC Nucleated RBC % Sodium 138 Potassium 3.5 Chloride 104 Carbon Dioxide 25 Anion Gap 9 BUN 23 Creatinine 0.90 Est GFR ( Amer) 103.1 Est GFR (Non-Af Amer) 85.2 BUN/Creatinine Ratio 25.6 H Glucose 116 H Calcium 9.2 Total Bilirubin 0.60 AST 30 ALT 27 Alkaline Phosphatase 71 Total Protein 6.9 Albumin 4.0 Globulin 2.9 Albumin/Globulin Ratio 1.4 TSH 2.84 Urine Color Straw Urine Appearance Clear Urine pH 5.0 Ur Specific [place] 1.012 Urine Protein Negative Urine Ketones Negative Urine Blood Negative Urine Nitrate Negative Urine Bilirubin Negative Urine Urobilinogen Negative Ur Leukocyte Esterase Negative Urine Glucose Negative Urine Ascorbic Acid * A Salicylates < 2.50 Urine Opiates Screen None detected Acetaminophen < 15 Ur Barbiturates Screen None detected Ur Phencyclidine Scrn None detected Ur Amphetamines Screen None detected U Benzodiazepines Scrn None detected Urine Cocaine Screen None detected U Cannabinoids Screen None detected Serum Alcohol < 10 02/09/19 03:18 WBC 6.2 RBC 4.49 Hgb 13.6 L Hct 41 L MCV 91 MCH 30 MCHC 33 RDW 16 H Plt Count 330 MPV 7.3 L Neut % (Auto) 64.3 Lymph % (Auto) 22.9 Gaines % (Auto) 10.2 Eos % (Auto) 2.0 Baso % (Auto) 0.6 Absolute Neuts (auto) 4.0 Absolute Lymphs (auto) 1.4 Absolute Monos (auto) 0.6 Absolute Eos (auto) 0.1 Absolute Basos (auto) 0.0 Absolute Nucleated RBC 0.0 Nucleated RBC % 0.0 Sodium Potassium Chloride Carbon Dioxide Anion Gap BUN Creatinine Est GFR ( Amer) Est GFR (Non-Af Amer) BUN/Creatinine Ratio Glucose Calcium Total Bilirubin AST ALT Alkaline Phosphatase Total Protein Albumin Globulin Albumin/Globulin Ratio TSH Urine Color Urine Appearance Urine pH Ur Specific [place] Urine Protein Urine Ketones Urine Blood Urine Nitrate Urine Bilirubin Urine Urobilinogen Ur Leukocyte Esterase Urine Glucose Urine Ascorbic Acid Salicylates Urine Opiates Screen Acetaminophen Ur Barbiturates Screen Ur Phencyclidine Scrn Ur Amphetamines Screen U Benzodiazepines Scrn Urine Cocaine Screen U Cannabinoids Screen Serum Alcohol
[2019-02-09] MEDS ORDERED: Albuterol HFA INHALER* 8 gm MDI INH PRN (14:09)
[2019-02-09] MEDS ORDERED: Al Hydrox/Mg Hydrox/Simet LIQ* 30 ML UDC PO PRN (17:54)
[2019-02-09] MEDS: Mirtazapine TAB* 15 MG PO SCH (20:49)
[2019-02-09] MEDS ORDERED: Ziprasidone CAP* 80 MG PO SCH (21:00)
[2019-02-10 07:45] LABS: HDL Cholesterol 99.8 mg/dL
[2019-02-10] MEDS: Pyridoxine TAB* 50 MG PO SCH (09:34)
[2019-02-10] MEDS: Vitamin THERAPEUTIC TAB PO SCH (09:34)
[2019-02-10] MEDS: Ascorbic Acid TAB* 500 MG PO SCH (09:34)
[2019-02-10] MEDS: ETHAMBUTOL 400 MG PO SCH (10:45)
[2019-02-10] MEDS: Linezolid TAB* 600 MG PO SCH (10:46)
--- NOTE | 2019-02-10 11:54 | HP ---
H&P (Free Text) History and Physical: Justification for admission: Immediate Safety. CC " I dont know" The patient was brought to [facility] by after he called 911 stating " Save my ." Patient was recently [place] [facility] [place] a [place] with trazodone. He is currently being treated for TB and stopped taking his medications 2 days ago. Per EMR ED note the patient has had worsening depression and decreased sleep. Patient was unable to explain the events that led up to his admission. Patient was observed mumbling to himself most of the interview with his head down. He denied access to firearms or stockpiles of medications. When asked about the things that cause him stress he replied with " My family". He denied changes in his sleep or appetite. The patient was unable to be understood when asked about suicidal and or homicidal ideation intent or plan or auditory and/ or visual hallucinations. The patient reported feeling weak and tired all the time Patient was unable to participate in the psychiatric review of systems PAST PSYCHIATRIC HISTORY: Prior Diagnosis : Major depressive disorder History of past Psychiatric Hospitalizations: 1 prior psychiatric admission at [facility] [place]. History of past suicide/homicide attempts : 1 past suicide attempt by overdosing with trazodone pills. Denied past homicidal incidents. Outpatient follow-up: [facility] Medications: Past trials of medications include remeron 15mg po qhs. Guardianship: None. FAMILY HISTORY: - Suicide: Denied family history of suicide. - Mental illness: Denied a history of mental health in immediate family members. - Substance abuse: Denied substance abuse among family members. SUBSTANCE ABUSE HISTORY: Denied using alcohol, tobacco, heroin cocaine or other illicit substances. Denied abusing pills for recreational use. Denied past Substance abuse treatment. SOCIAL HISTORY: Born in [place] and previously worked at [employer]. He is and lives with his in [place]. He denied a history of physical and or sexual abuse. - Legal history: Denied - service history: Denied PAST MEDICAL HISTORY: Tuberculosis on month 4/9 months of treatment - Allergies: Azithromycin, levofloxacin, tetracyclines Physical Exam: Please see ED note Mental Status Exam on Admission APPEARANCE : 63 year old male who appears stated age. Patient is thin and appears to have fair hygiene and grooming. BEHAVIOR: Cooperative EYE CONTACT: Poor PSYCHOMOTOR ACTIVITY: No psychomotor agitation or retardation. MOVEMENTS: No abnormal movements observed. SPEECH : mumbled quiet MOOD : "I dont know " AFFECT : Type is depressed Range is flat with shallow depth Mood Incongruent THOUGHT PROCESS: Illogical and disorganized THOUGHT CONTENT: unknown PERCEPTION: did not appear to be responding to internal stimuli SUICIDALITY not able to be determined at this time HOMICIDALITY not able to be determined at this time Insight/judgment: Poor insight and judgment ORIENTATION: Oriented to self, location, and time. Diagnosis on Admission: Medication induced depression with psychotic features. Assessment: 63 year old male with history of depression came to the hospital following paranoid and unusual behavior and was admitted to the B[facility] at [facility]. Plan #Admit to BSU, Q15 minute observation. Start regular diet. Encourage participation in activities on the milieu. #Patient evaluated in ED and was determined by the emergency room Physician to be medically fit for admission to the BSU. # Justification for Admission: For immediate safety per outlined in the [place] Mental Hygiene Code. # The patient requires psychiatric inpatient admission at this time to assure safety, receive treatment and work toward stabilization. # Labs ordered: CBC, CMP, UDS, TSH, HBA1c, TSH, Toxicology screen, Urine analysis, and lipid profile. # Infectious disease consulted for TB. Dr. Orr # Obtain collateral information from his # Collaboration with Artist Model Scarlet Lauren # Some case reports indicate INH can induce psychosis. #Goals before discharge include: Psychiatric stabilization The risks, benefits, and alternative treatment options were discussed as well as of the risks of refusing treatment. After this discussion and an acknowledgement of this understanding was made. A risk/ benefit assessment of treatment was considered and discussed with the patient. When comparing the risks of treatment with the dangers of not receiving treatment, the benefits of treatment outweigh the treatment risks at this time. Risks of allergy, suicidal ideation, behavioral changes, dystonia, rashes, electrolyte imbalances, movement disorders, cardiac conduction changes, serotonin syndrome, metabolic risks and NMS were among some of the risks discussed. Sodium 138 mmol/L (135-145) 02/09/19 03:18 Potassium 3.5 mmol/L (3.5-5.0) 02/09/19 03:18 BUN 23 mg/dL (6-24) 02/09/19 03:18 Creatinine 0.90 mg/dL (0.67-1.17) 02/09/19 03:18 Hemoglobin A1c 6.0 % (4.0-5.6) H 02/10/19 07:05 Calcium 9.2 mg/dL (8.6-10.3) 02/09/19 03:18 AST 30 U/L (13-39) 02/09/19 03:18 ALT 27 U/L (7-52) 02/09/19 03:18 Triglycerides 93 mg/dL 02/10/19 07:05 Cholesterol 186 mg/dL 02/10/19 07:05 LDL Cholesterol 68 mg/dL 02/10/19 07:05 Acetaminophen (Tylenol Tab*) 650 mg PO Q4H PRN PRN Reason: for pain; or Temp >101 F Al Hydrox/Mg Hydrox/Simethicone (Maalox Plus*) 30 ml PO Q4H PRN PRN Reason: INDIGESTION Albuterol (Ventolin Hfa Inhaler*) 2 puff INH Q4HR PRN PRN Reason: SHORTNESS OF BREATH Ascorbic Acid (Vitamin C Tab*) 500 mg PO DAILY [facility] Last Admin: 02/10/19 09:34 Dose: 500 mg Ethambutol HCl (Myambutol Tab*) 800 mg PO DAILY [facility] Last Admin: 02/10/19 10:45 Dose: 800 mg Linezolid (Zyvox Tab*) 600 mg PO DAILY [facility] Last Admin: 02/10/19 10:46 Dose: 600 mg Mirtazapine (Remeron Tab*) 15 mg PO BEDTIME [facility] Last Admin: 02/09/19 20:49 Dose: 15 mg Multivitamins (Theragran Tab*) 1 tab PO DAILY [facility] Last Admin: 02/10/19 09:34 Dose: 1 tab Isoniazid 100 Mg 1 admin PO DAILY [facility] Last Admin: 02/10/19 13:09 Dose: 1 admin Pyridoxine HCl (Vitamin B6 Tab*) 100 mg PO DAILY [facility] Last Admin: 02/10/19 09:34 Dose: 100 mg Vital Signs Temp Pulse Resp BP Pulse Ox 96.3 F 67 16 135/92 98 02/10/19 08:00 02/10/19 08:00 02/10/19 10:28 02/10/19 08:00 02/10/19 08:00
[2019-02-10] MEDS: ISONIAZID PO SCH ×2 (13:01→13:09)
[2019-02-10] MEDS: Mirtazapine TAB* 15 MG PO SCH (20:57)
[2019-02-10] MEDS ORDERED: QUEtiapine TAB* 100 MG PO SCH (21:00)
[2019-02-11] MEDS: ETHAMBUTOL 400 MG PO SCH (09:10)
[2019-02-11] MEDS: Vitamin THERAPEUTIC TAB PO SCH (09:10)
[2019-02-11] MEDS: Linezolid TAB* 600 MG PO SCH (09:10)
[2019-02-11] MEDS: Pyridoxine TAB* 50 MG PO SCH (09:10)
[2019-02-11] MEDS: Ascorbic Acid TAB* 500 MG PO SCH (09:10)
--- NOTE | 2019-02-11 11:03 | PN ---
Subjective - Subjective Date of Service: 02/11/19 Service Type: 00095 Hosp care 35 min high complexity Subjective: Nursing Report: Patient was visible on unit, patient slept overnight. CC: "hmm hmm" Patient was seen and evaluated in the common room. The patient points to his head and attempts to say something. Patients came to visit during visiting hours. Patient unable to verbalize needs. Objective - General Observations Appearance: Neat Appears Stated Age: Yes Stature: Thin Posture: Tense Eye Contact: Avoidant Behavior/Activity: Slowed - Interaction Observations Attitude Towards Examiner: Confused Stated Mood: Anxious Affect: Blunted Speech Pattern/Tone: Slurred, Garbled Thought Process: Incoherent Perception: Derealization Thought Content: Paranoid, Phobic Thought Process: Lethality: Passive Wish Hallucination Type: Denies Delusion Type: Persecution - Cognitive Function Orientation: A&O x 4 Level of Consciousness: Awake - Medication Compliance Cooperative with Inpatient Medication Regimen: Yes - Group Participation Participates in Group Activities: No Assessment - Assessment Merits Inpatient Hospitalization: For Stabilization Clinical Impression: Assessment: 63 year old male with history of depression came to the hospital following paranoid and unusual behavior and was admitted to the BSU at [facility]. Plan - Plan Treatment Plan: Name: DAVONTE MCINTYRE Birthdate: 1955 [id number] Plan # Q15 minute observation. # Restrict patients from visiting BSU- she is disruptive to his care at this time. Multiple accounts in various settings including the outpatient setting indicate that her presences causes a dramatic change and regression in patients behavior. Patient is not to consume food from patients family members. # Encourage and monitor fluid and food intake. Monitor vital signs # Rule out factitious disorder imposed on another. # The patient requires psychiatric inpatient admission at this time to assure safety, receive treatment and work toward stabilization. # Infectious disease consulted Dr. Orr saw and evaluated the patient today and suggests stopping INH for now. # Obtain collateral information from his # Collaboration with Formula Weigher Scarlet Lauren #PT/ OT consult # Fall precautions #D/C seroquel and decrease remeron to 7.5mg qhs #Resume geodon 40mg po qhs #Goals before discharge include: To eliminate/ reduce features of psychosis Tentative Discharge: Pending psychiatric stabilization Sodium 138 mmol/L (135-145) 02/09/19 03:18 Potassium 3.5 mmol/L (3.5-5.0) 02/09/19 03:18 BUN 23 mg/dL (6-24) 02/09/19 03:18 Creatinine 0.90 mg/dL (0.67-1.17) 02/09/19 03:18 Hemoglobin A1c 6.0 % (4.0-5.6) H 02/10/19 07:05 Calcium 9.2 mg/dL (8.6-10.3) 02/09/19 03:18 AST 30 U/L (13-39) 02/09/19 03:18 ALT 27 U/L (7-52) 02/09/19 03:18 Triglycerides 93 mg/dL 02/10/19 07:05 Cholesterol 186 mg/dL 02/10/19 07:05 LDL Cholesterol 68 mg/dL 02/10/19 07:05 Vital Signs Temp Pulse Resp BP Pulse Ox 96.3 F 72 16 97/53 97 02/10/19 08:00 02/10/19 21:22 02/10/19 10:28 02/10/19 21:22 02/10/19 21:22 Continued Medication Management: Continue Outpt Medication Medications: Current Medications Acetaminophen (Tylenol Tab*) 650 mg PO Q4H PRN PRN Reason: for pain; or Temp >101 F Al Hydrox/Mg Hydrox/Simethicone (Maalox Plus*) 30 ml PO Q4H PRN PRN Reason: INDIGESTION Albuterol (Ventolin Hfa Inhaler*) 2 puff INH Q4HR PRN PRN Reason: SHORTNESS OF BREATH Ascorbic Acid (Vitamin C Tab*) 500 mg PO DAILY [facility] Last Admin: 02/11/19 09:10 Dose: 500 mg Ethambutol HCl (Myambutol Tab*) 800 mg PO DAILY [facility] Last Admin: 02/11/19 09:10 Dose: 800 mg Linezolid (Zyvox Tab*) 600 mg PO DAILY [facility] Last Admin: 02/11/19 09:10 Dose: 600 mg Mirtazapine (Remeron Tab*) 15 mg PO BEDTIME [facility] Last Admin: 02/10/19 20:57 Dose: Not Given Multivitamins (Theragran Tab*) 1 tab PO DAILY [facility] Last Admin: 02/11/19 09:10 Dose: 1 tab Cmcs: Isoniazid 100 (Mg) 2 admin PO DAILY [facility] Pyridoxine HCl (Vitamin B6 Tab*) 100 mg PO DAILY [facility] Last Admin: 02/11/19 09:10 Dose: 100 mg Quetiapine Fumarate (Seroquel Tab*) 200 mg PO BEDTIME [facility] Last Admin: 02/10/19 20:55 Dose: 200 mg - Discharge Plan Discharge Plan: Inpatient Hospitalization Outpatient Program: [facility]
[2019-02-11] MEDS: ISONIAZID PO SCH (15:24)
--- NOTE | 2019-02-11 15:28 | CONS ---
CONSULTATION REPORT: DATE OF CONSULTATION: 02/11/19 REQUESTING PHYSICIAN: Dr. Joy. CONSULTING SERVICE: Infectious Disease. REASON FOR CONSULTATION: Mental status changes during tuberculosis treatment. IMPRESSION: 1. Disorganized behavior, difficult to express himself in the setting of subacute weight loss, previous overdose with tramadol, 4+ months of TB treatment , has included isoniazid. This could be an effect of his isoniazid which is reported to cause psychiatric symptoms. I did not know him before his treatment to say how far off he is from his baseline. However, he has had a long course of some behavioral and emotional disturbances over the last few months. No evidence of central nervous systems involvement of his TB infection , which is otherwise improving. 2. Allergies are intolerance to AZITHROMYCIN, LEVAQUIN, and TETRACYCLINE. RECOMMENDATION: Continue Ethambutol 800 mg a day, linezolid 600 mg a day. He had recently started holding his isoniazid last week due to some concern for a change in behavior. We will observe him off of isoniazid and I will discuss the case with Dr. Joy. HISTORY OF PRESENT ILLNESS: This is a 63-year-old man being treated for pulmonary tuberculosis, which started while he was living in [place]. He transferred his care here, had had intolerance to a number of tuberculosis medications. Most recently he had been on INH, Ethambutol, and linezolid. His previous weight loss had stopped and he started gaining a little bit of weight. This is also after starting mirtazapine therapy after a stay in the Mental Health Unit. At that time he was admitted with an overdose of tramadol. Since then his sleep is much improved. His appetite is up a little bit and in discussing this with his , she says that if she gives him food he will eat everything that she gives him, but otherwise will not eat of his own free will. She notes that this weekend she found him to be more and more disorganized. He went to sleep, but then woke up and she heard him on the phone calling 911 because he was going to or she was going to , so he was brought to the hospital and admitted to Mental Health. His initial blood testing showed no leukocytosis. Kidney and liver function are normal, as were thyroid studies. His A1c was 6. He has been afebrile here. In discussion with the nursing staff and with the patient's , some time is better than others, including being more lucid or able to express himself and being more ambulatory and eating more, followed by times of not wanting to eat, refusing food, and not being to able to express himself, and that has been today, according to the . He denies any pain. His pervious chest pain and cough have resolved. He says that he is sorry. PAST MEDICAL HISTORY: 1. 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 2. Weight loss while on TB treatment. ALLERGIES: AZITHROMYCIN, LEVAQUIN, and TETRACYCLINE. MEDICATIONS: 1. Tylenol. 2. Albuterol inhaler as needed. 3. Vitamin C. 4. Ethambutol 800 mg a day. 5. Linezolid 600 mg a day. 6. Mirtazapine 15 mg at bedtime. 7. Seroquel 200 mg at bedtime. 8. Multivitamin. 9. Vitamin B6. FAMILY HISTORY: No recurrent infections. SOCIAL HISTORY: He worked for the [employer] in [place] for a number of years while from his , had not been in close contact with the family and then she went out and brought him back when he started TB treatment. They were concerned he was not doing well. He is a nonsmoker. REVIEW OF SYSTEMS: Unobtainable given his current mental status. PHYSICAL EXAM: Vital Signs: Temperature 35.7, heart rate 70, respiratory rate 14, blood pressure 135/92, oxygen saturation 98% on room air. General: He is awake, not in distress, eating lunch. Neurologic: He answers some questions, but is also mumbling and unable to follow commands. HEENT: There is no conjunctival hemorrhage. Oropharynx without lesions. Neck: Supple, without mass. Heart: Regular rate and rhythm, without murmurs, rubs or gallops. Lungs: Clear to auscultation bilaterally. Abdomen: Soft, nontender , nondistended. There are bowel sounds present. Skin: There is no rash or splinter hemorrhages. DIAGNOSTIC STUDIES/LAB DATA: Creatinine 0.9, ALT 27, TSH 2.8. White blood cell count 6.2, hemoglobin 13.6, MCV 91, platelets 330. Please see impressions and recommendations outline above. Thanks for asking me to see Mr. Mcdaniel in consultation. [id number]/[facility] #: [id number] T[place]
[2019-02-11] MEDS: Ziprasidone * 20 MG CAP (generic Geodon) PO SCH (20:29)
[2019-02-11] MEDS: Mirtazapine TAB* 15 MG PO SCH (20:30)
[2019-02-12] MEDS ORDERED: ISONIAZID PO SCH (09:00)
[2019-02-12] MEDS: ETHAMBUTOL 400 MG PO SCH (09:54)
[2019-02-12] MEDS: Linezolid TAB* 600 MG PO SCH (09:55)
[2019-02-12] MEDS: Vitamin THERAPEUTIC TAB PO SCH (09:55)
[2019-02-12] MEDS: Ascorbic Acid TAB* 500 MG PO SCH (09:55)
--- NOTE | 2019-02-12 10:24 | PN ---
Subjective - Subjective Date of Service: 02/12/19 Service Type: 28715 Hosp care 35 min high complexity Subjective: Nursing Report: Patient was visible on unit walking around, no chemical restraints or PRNs. Slept overnight without incident. He ate 50% of meals. CC: " okay" Patient was seen and evaluated in the common room. The patient reported he and his for 5 years before he was treated for TB. He reported sleeping well last evening. He reported drinking fluids and eating dinner last evening. Patient reported feeling safe on the unit. He reported that he feels safe at home and is not concerned for his safety. Objective - General Observations Appearance: Neat Appears Stated Age: Yes Stature: Thin Posture: Rigid Eye Contact: Average, Intense Behavior/Activity: Slowed - Interaction Observations Attitude Towards Examiner: Confused Stated Mood: Anxious Affect: Blunted Speech Pattern/Tone: Delayed Thought Process: Impoverished, [place] Perception: WNL Thought Content: WNL Hallucination Type: None Delusion Type: None - Cognitive Function Orientation: A&O x 4 Level of Consciousness: Awake - Medication Compliance Cooperative with Inpatient Medication Regimen: Yes - Group Participation Participates in Group Activities: No Assessment - Assessment Merits Inpatient Hospitalization: For Immediate Safety Clinical Impression: Assessment: 63 year old male with history of depression came to the hospital following paranoid and unusual behavior and was admitted to the B[facility] at [facility]. Plan - Plan Treatment Plan: Name: DAVONTE MCINTYRE Birthdate: 1955 [id number] Plan # Q15 minute observation. # Restrict patients from visiting BSU- she is disruptive to his care at this time. Multiple accounts in various settings including the outpatient setting indicate that her presences causes a dramatic change and regression in patients behavior. Patient is not to consume food from patients family members. # Encourage and monitor fluid and food intake. Monitor vital signs # Rule out factitious disorder imposed on another. # The patient requires psychiatric inpatient admission at this time to assure safety, receive treatment and work toward stabilization. # Infectious disease consulted and Dr. Orr confirmed to discontinue Isoniazid (INH) at this time # was called and is accepting to not visit at this time. # Collaboration with Jet Piercer Operator Scarlet Lauren #PT/ OT consult # Fall precautions #Neurology consult to evaluate proprioception and Romberg with a history of TB. #Continue remeron to 7.5mg qhs #geodon 40mg po qhs #Collateral from children # Patient shows improvement is able to speak,improvement of food intake and he is able to walk. #Goals before discharge include: To eliminate/ reduce features of psychosis Tentative Discharge: Pending psychiatric stabilization Sodium 138 mmol/L (135-145) 02/09/19 03:18 Potassium 3.5 mmol/L (3.5-5.0) 02/09/19 03:18 BUN 23 mg/dL (6-24) 02/09/19 03:18 Creatinine 0.90 mg/dL (0.67-1.17) 02/09/19 03:18 Hemoglobin A1c 6.0 % (4.0-5.6) H 02/10/19 07:05 Calcium 9.2 mg/dL (8.6-10.3) 02/09/19 03:18 AST 30 U/L (13-39) 02/09/19 03:18 ALT 27 U/L (7-52) 02/09/19 03:18 Triglycerides 93 mg/dL 02/10/19 07:05 Cholesterol 186 mg/dL 02/10/19 07:05 LDL Cholesterol 68 mg/dL 02/10/19 07:05 Vital Signs Temp Pulse Resp BP Pulse Ox 98 F 77 16 146/70 99 02/12/19 10:46 02/12/19 10:46 02/12/19 10:46 02/12/19 10:46 02/12/19 10:46 Continued Medication Management: Continue Outpt Medication Medications: Current Medications Acetaminophen (Tylenol Tab*) 650 mg PO Q4H PRN PRN Reason: for pain; or Temp >101 F Al Hydrox/Mg Hydrox/Simethicone (Maalox Plus*) 30 ml PO Q4H PRN PRN Reason: INDIGESTION Albuterol (Ventolin Hfa Inhaler*) 2 puff INH Q4HR PRN PRN Reason: SHORTNESS OF BREATH Ascorbic Acid (Vitamin C Tab*) 500 mg PO DAILY [facility] Last Admin: 02/12/19 09:55 Dose: 500 mg Ethambutol HCl (Myambutol Tab*) 800 mg PO DAILY [facility] Last Admin: 02/12/19 09:54 Dose: 800 mg Linezolid (Zyvox Tab*) 600 mg PO DAILY [facility] Last Admin: 02/12/19 09:55 Dose: 600 mg Mirtazapine (Remeron Tab*) 7.5 mg PO BEDTIME [facility] Last Admin: 02/11/19 20:30 Dose: 7.5 mg Multivitamins (Theragran Tab*) 1 tab PO DAILY [facility] Last Admin: 02/12/19 09:55 Dose: 1 tab Ziprasidone (Geodon (Generic) *) 40 mg PO 2100 [facility] Last Admin: 02/11/19 20:29 Dose: 40 mg - Discharge Plan Discharge Plan: Inpatient Hospitalization Outpatient Program: [facility]
[2019-02-12 13:57] LABS: Folate > 20.00 ng/mL (>3.99)
--- NOTE | 2019-02-12 14:53 | PN ---
Progress Note - Progress Note Date of Service: 02/12/19 SOAP: Subjective: CC: confusion HPI: 63 year old man on INH, ethambutol, linezolif for pulmonary TB admitted with disorganized behavior, issues related to concerns over his and spouse's safety that seemed to have a fluctuating course as an outpatient. Today he denies pain, fever, confusion. Objective: Vital Signs Temp 36.6 C 02/12/19 10:46 Pulse 77 02/12/19 10:46 Resp 16 02/12/19 13:50 BP 146/70 02/12/19 10:46 Pulse Ox 99 02/12/19 10:46 Gen:awake, no distress Neuro: alert, oriented, answers quests, shuffling gate HEENT: no thrush Heart:RRR no murmur Lungs:CTA BL Abd:+BS NTND soft Skin: no rash Laboratory Results - last 24 hr 02/12/19 12:43 Vitamin B12 > 1450 H Folate > 20.00 Assessment: 1. Pulmonary TB, month 4+/9 of treatment 2. confusion, disorganized behavior, improved 3. gate abnormality, improved Plan: 1. continue linezolid 600 mg daily, ethambutol 800 mg daily. Appreiciate neurology and psychiatry input and management.
[2019-02-12] MEDS: Mirtazapine TAB* 15 MG PO SCH (20:38)
[2019-02-12] MEDS: Ziprasidone * 20 MG CAP (generic Geodon) PO SCH (20:38)
[2019-02-13] MEDS: ETHAMBUTOL 400 MG PO SCH (10:38)
[2019-02-13] MEDS: Vitamin THERAPEUTIC TAB PO SCH (10:39)
[2019-02-13] MEDS: Linezolid TAB* 600 MG PO SCH (10:39)
[2019-02-13] MEDS: Ascorbic Acid TAB* 500 MG PO SCH (10:39)
--- NOTE | 2019-02-13 11:20 | PN ---
Subjective - Subjective Date of Service: 02/13/19 Service Type: 73045 Hosp care 35 min high complexity Subjective: Nursing Report: Patient was visible on unit, no behavioral incidents. Ate meals CC: "I did not sleep as well" Patient was seen and evaluated in the common room today. The patient reported he did not sleep as well last evening. He said he felt tired and plans to go to his room and nap. He reported eating meals and drinking water. Objective - General Observations Appearance: Neat Appears Stated Age: Yes Stature: Thin Posture: Tense Eye Contact: Average Behavior/Activity: Slowed - Interaction Observations Attitude Towards Examiner: Anxious Stated Mood: Anxious Affect: Blunted Speech Pattern/Tone: Slurred Thought Process: Impoverished Perception: WNL Thought Content: Preoccupation/Ruminations Hallucination Type: Denies Delusion Type: Denies - Cognitive Function Orientation: A&O x 4 Level of Consciousness: Awake - Medication Compliance Cooperative with Inpatient Medication Regimen: Yes - Group Participation Participates in Group Activities: No Assessment - Assessment Merits Inpatient Hospitalization: For Immediate Safety Clinical Impression: Assessment: 63 year old male with history of depression came to the hospital following paranoid and unusual behavior and was admitted to the B[facility] at [facility]. Plan - Plan Treatment Plan: Name: DAVONTE MCINTYRE Birthdate: 1955 [id number] Plan # Q15 minute observation. # Restrict patients from visiting BSU- she is disruptive to his care at this time. Multiple accounts in various settings including the outpatient setting indicate that her presences causes a dramatic change and regression in patients behavior. Patient is not to consume food from patients family members. # Encourage and monitor fluid and food intake. Monitor vital signs # Rule out factitious disorder imposed on another. # The patient requires psychiatric inpatient admission at this time to assure safety, receive treatment and work toward stabilization. # Infectious disease consulted and Dr. Orr confirmed to discontinue Isoniazid (INH) at this time # was called and is accepting to not visit at this time. Will update her daily on progress # Collaboration with Desktop Manager Scarlet Lauren #PT/ OT consult # Fall precautions #Neurology consult to evaluate proprioception and Romberg with a history of TB. #Continue remeron to 7.5mg qhs #geodon 40mg po qhs #Collateral from children # Patient shows improvement is able to speak, ate meals and drinks water. #Goals before discharge include: To eliminate/ reduce features of psychosis Tentative Discharge: Pending psychiatric stabilization Sodium 138 mmol/L (135-145) 02/09/19 03:18 Potassium 3.5 mmol/L (3.5-5.0) 02/09/19 03:18 BUN 23 mg/dL (6-24) 02/09/19 03:18 Creatinine 0.90 mg/dL (0.67-1.17) 02/09/19 03:18 Hemoglobin A1c 6.0 % (4.0-5.6) H 02/10/19 07:05 Calcium 9.2 mg/dL (8.6-10.3) 02/09/19 03:18 AST 30 U/L (13-39) 02/09/19 03:18 ALT 27 U/L (7-52) 02/09/19 03:18 Triglycerides 93 mg/dL 02/10/19 07:05 Cholesterol 186 mg/dL 02/10/19 07:05 LDL Cholesterol 68 mg/dL 02/10/19 07:05 Vital Signs Temp Pulse Resp BP Pulse Ox 97.5 F 68 16 161/90 99 02/13/19 10:45 02/13/19 10:45 02/13/19 10:45 02/13/19 10:45 02/13/19 10:45 Continued Medication Management: Continue Outpt Medication Medications: Current Medications Acetaminophen (Tylenol Tab*) 650 mg PO Q4H PRN PRN Reason: for pain; or Temp >101 F Al Hydrox/Mg Hydrox/Simethicone (Maalox Plus*) 30 ml PO Q4H PRN PRN Reason: INDIGESTION Albuterol (Ventolin Hfa Inhaler*) 2 puff INH Q4HR PRN PRN Reason: SHORTNESS OF BREATH Ascorbic Acid (Vitamin C Tab*) 500 mg PO DAILY [facility] Last Admin: 02/13/19 10:39 Dose: 500 mg Ethambutol HCl (Myambutol Tab*) 800 mg PO DAILY [facility] Last Admin: 02/13/19 10:38 Dose: 800 mg Linezolid (Zyvox Tab*) 600 mg PO DAILY [facility] Last Admin: 02/13/19 10:39 Dose: 600 mg Mirtazapine (Remeron Tab*) 7.5 mg PO BEDTIME [facility] Last Admin: 02/12/19 20:38 Dose: 7.5 mg Multivitamins (Theragran Tab*) 1 tab PO DAILY [facility] Last Admin: 02/13/19 10:39 Dose: 1 tab Ziprasidone (Geodon (Generic) *) 40 mg PO 2100 [facility] Last Admin: 02/12/19 20:38 Dose: 40 mg - Discharge Plan Discharge Plan: Inpatient Hospitalization
[2019-02-13] MEDS ORDERED: Propranolol TAB* 10 MG PO ONE (12:52)
[2019-02-13] MEDS ORDERED: Benztropine TAB* 1 MG PO ONE (12:52)
[2019-02-13] MEDS ORDERED: Benztropine TAB* 1 MG ONE (13:01)
[2019-02-13] MEDS ORDERED: Propranolol TAB* 10 MG ONE (13:02)
[2019-02-13 14:06] LABS: ABS Eosinophils 0.1 10^3/ul (0-0.6); ABS Lymphocytes 1.1 10^3/ul (1.0-4.8); ABS Monocytes 0.7 10^3/ul (0-0.8); ABS Neutrophils 5.5 10^3/ul (1.5-7.7); Eosinophil % 1.1 %; Hematocrit 43 % (42-52); Lymphocyte % 14.9 %; Mean Corpuscular HGB Conc 33 g/dL (31-36); Mean Corpuscular Hemoglobin 30 pg (27-31); Mean Corpuscular Volume 92 fL (80-94); Mean Platelet Volume 7.6 fL (7.4-10.4); Platelet Count 305 10^3/uL (150-450); Red Blood Count 4.64 10^6 /uL (4.18-5.48); Red Cell Distribution Width 17 % (10-15); White Blood Count 7.4 10^3/uL (3.5-10.8)
[2019-02-13 14:29] LABS: Albumin 4.4 g/dL (3.2-5.2); Albumin/Globulin Ratio 1.6 (1-3); BUN/Creatinine Ratio 25.6 (8-20); Calcium 9.7 mg/dL (8.6-10.3); EGFR African American 108.7 (>60); EGFR Non-African American 89.8 (>60); Globulin 2.8 g/dL (2-4); Potassium 4.2 mmol/L (3.5-5.0); Total Bilirubin 0.6 mg/dL (0.2-1.0); Total Protein 7.2 g/dL (6.4-8.9)
--- NOTE | 2019-02-13 17:34 | CONS ---
NEUROLOGY CONSULTATION: DATE OF CONSULT: 02/13/19 LOCATION: He is an inpatient in room 206. REFERRING PHYSICIAN: Dr. Vimal Joy. CHIEF COMPLAINT: Unsteadiness, mental status changes. 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 The next day, he was better and it turned out he had taken 5 or 6 Benadryl in addition to his Ambien for his chronic insomnia. He has pulmonary tuberculosis and has been on antituberculosis therapy for at least about 4 months now. He was hospitalized again in December, when he took a large amount of tramadol. 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 He was hospitalized and also transferred to behavioral services unit. He was discharged on 12/31/18. He then presented to the hospital this time around on after an exacerbation of his confusion. PAST MEDICAL HISTORY: Mainly notable for pulmonary tuberculosis and the subsequent mental status changes and medication misuse. He has very significant weight loss. He has iron deficiency anemia. MEDICATIONS: Current medications consist of: 1. Albuterol 2 puffs every 4 hours as needed for shortness of breath. 2. Ethambutol 800 mg p.o. daily. 3. Linezolid 600 mg p.o. daily. 4. Mirtazapine 7.5 mg p.o. at bedtime. 5. Multivitamins. ALLERGIES: He is allergic to LEVOFLOXACIN, TETRACYCLINES, AZITHROMYCIN. REVIEW OF SYSTEMS: From the patient is nonproductive. He mumbles incoherently at some times, but other times makes brief coherent sentences. He is cooperative when directed. PHYSICAL EXAM: He is very thin. Temperature is 97.5, blood pressure 160/90, heart rate is 70 and regular, respiratory rate is 16, and oxygen saturation is 99% on room air. Heart tones are normal. Neurological Exam: Pupils react very sluggishly from about 3 to 2.5 mm. There is no afferent pupillary defect. Fundi are poorly seen, but disks do not appear unusually pale. Eye movements are full and there is no nystagmus. Facial musculature is symmetrical with grade 2 hypomimia. Speech is again quite mumbly and soft. Motor exam does not reveal any rigidity or spasticity. He has reasonably good strength, which is symmetrical in the upper and lower extremities. There is no myoclonus or sustention tremor. Finger taps are bit slow bilaterally, but not unusually so. He is able to perform a [id number] maneuver without significant tremor. Sensory exam is difficult to assess. He does not respond adequately to make a good assessment. Reflexes are intact and somewhat brisk in the arms, grade 2 at the knees and grade 1 at the ankles. Romberg sign is absent. Gait is slow and slightly wide based and a bit unsteady. He does ambulate independently, however. DIAGNOSTIC STUDIES/LAB DATA: Laboratory data includes a normal CBC on 02/13/19 , normal chemistry profile other than a glucose of 110. Hemoglobin A1c yesterday was 6%. His vitamin B12 level on 02/12/19 was greater than 1450. Vitamin B1 and vitamin B6 were normal on 12/05/18. His free T4 on 12/05/18 was borderline elevated at 1.13, his TSH on 02/09/19 is normal. 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 It has been fluctuating and in looking up some pharmacological information, linezolid has an MAO inhibitor effect. Remeron is listed as contraindicated in my [employer] formulary magaly . Recommend stopping mirtazapine. He was on quetiapine and that has already been stopped. I would see how he does just on antituberculous therapy over the next day or 2 or 3. If he does not improve, he may need MRI scan of the brain with contrast to look for tuberculomas and possibly a lumbar puncture. However, at this point, he had been on continuous antituberculous therapy and I think he has probably more a toxic psychosis from his medications or combinations thereof. I will follow him along with you. [id number]/[facility] #: [id number] [facility]
[2019-02-14] MEDS: Vitamin THERAPEUTIC TAB PO SCH (09:30)
[2019-02-14] MEDS: Linezolid TAB* 600 MG PO SCH (09:30)
[2019-02-14] MEDS: ETHAMBUTOL 400 MG PO SCH (09:30)
[2019-02-14] MEDS: Ascorbic Acid TAB* 500 MG PO SCH (09:30)
[2019-02-14] MEDS ORDERED: Propranolol TAB* 10 MG PO ONE (10:14)
[2019-02-14 11:05] VITALS: BP 153/98
--- NOTE | 2019-02-14 13:50 | DS ---
Subjective - Subjective Service Types: [address] [facility] Day Mgmt complex over 30 min Discharge Date: 02/14/19 Subjective: CC: " hmm hmm" The patient was seen and evaluated and determined that he requires the supportive care of IV fluids and will be transferred to the medical floor. Justification for admission: Immediate Safety. CC " I dont know" The patient was brought to [facility] by after he called 911 stating " Save my ." Patient was recently admitted to [facility] [place] [place] following a overdose with trazodone. He is currently being treated for TB and stopped taking his medications 2 days ago. Per EMR ED note the patient has had worsening depression and decreased sleep. Patient was unable to explain the events that led up to his admission. Patient was observed mumbling to himself most of the interview with his head down. He denied access to firearms or stockpiles of medications. When asked about the things that cause him stress he replied with " My family". He denied changes in his sleep or appetite. The patient was unable to be understood when asked about suicidal and or homicidal ideation intent or plan or auditory and/ or visual hallucinations. The patient reported feeling weak and tired all the time Patient was unable to participate in the psychiatric review of systems PAST PSYCHIATRIC HISTORY: Prior Diagnosis : Major depressive disorder History of past Psychiatric Hospitalizations: 1 prior psychiatric admission at [facility] [place] [place] December 2018. History of past suicide/homicide attempts : 1 past suicide attempt by overdosing with trazodone pills. Denied past homicidal incidents. Outpatient follow-up: [facility] Medications: Past trials of medications include remeron 15mg po qhs. Guardianship: None. FAMILY HISTORY: - Suicide: Denied family history of suicide. - Mental illness: Denied a history of mental health in immediate family members. - Substance abuse: Denied substance abuse among family members. SUBSTANCE ABUSE HISTORY: Denied using alcohol, tobacco, heroin cocaine or other illicit substances. Denied abusing pills for recreational use. Denied past Substance abuse treatment. SOCIAL HISTORY: Born in [place] and previously worked at [employer]. He is and lives with his in [place]. He denied a history of physical and or sexual abuse. - Legal history: Denied - service history: Denied PAST MEDICAL HISTORY: Tuberculosis on month 4/9 months of treatment - Allergies: Azithromycin, levofloxacin, tetracyclines Physical Exam: Please see ED note Mental Status Exam on Admission APPEARANCE : 63 year old male who appears stated age. Patient is thin and appears to have fair hygiene and grooming. BEHAVIOR: Cooperative EYE CONTACT: Poor PSYCHOMOTOR ACTIVITY: No psychomotor agitation or retardation. MOVEMENTS: No abnormal movements observed. SPEECH : mumbled quiet MOOD : "I dont know " AFFECT : Type is depressed Range is flat with shallow depth Mood Incongruent THOUGHT PROCESS: Illogical and disorganized THOUGHT CONTENT: unknown PERCEPTION: did not appear to be responding to internal stimuli SUICIDALITY not able to be determined at this time HOMICIDALITY not able to be determined at this time Insight/judgment: Poor insight and judgment ORIENTATION: Oriented to self, location, and time. Diagnosis on Admission: Medication induced depression with psychotic features. Diagnosis on Discharge: Brief psychotic disorder. Rule out delirium, serotonin syndrome Condition at the time of discharge: At the time of discharge patient showed fluctuation of of sleep and appetite. The patient was not a danger to self or others. The patient denied suicidal ideation, intent or plan. The patient denied homicidal targets, ideation, intent or plan. The patient requires requires the supportive care and will be transferred to the medical floor. Objective - General Observations Appearance: Disheveled Stature: Thin Posture: Slumped Eye Contact: Avoidant Behavior/Activity: Slowed - Interaction Observations Attitude Towards Examiner: Confused Stated Mood: Anxious Affect: Blunted Speech Pattern/Tone: Garbled Thought Process: Loose Associations Perception: Derealization Thought Content: Preoccupation/Ruminations Hallucination Type: None Delusion Type: None - Cognitive Function Orientation: Person Level of Consciousness: Awake - Medication Compliance Cooperative with Inpatient Medication Regimen: Yes - Group Participation Participates in Group Activities: No Treatment Course & Assessment Clinical Course & Impression: Hospital course part A: 63 year old male with history of depression came to the hospital following paranoid and unusual behavior and was admitted to the BSU at [facility]. Hospital course part B: Labs ordered included CBC, CMP, UDS, TSH, HBA1c, TSH, RPR, Vitamin B12. Toxicology screen, Urine analysis, and lipid profile. Labs were reviewed and did not require the need for further evaluation. Vital signs were monitored during the course of admission. The patient was admitted to the adult behavioral unit and placed on 15 minute check for safety. Patient was placed on constant observation because of unstable gait. The patient restricted his food and fluid intake and at times he refused to eat and drink. The risks, benefits, and alternative treatment options were discussed as well as of the risks of refusing treatment. The patients family was informed of the transfer Improvements in patient from the time of admission include: Improved affect, sleep and decrease in anxiety. No longer suicidal and no longer having feelings of hopelessness. The patient expressed readiness for discharge home. The patient presents with a broader range of affect, and the absence of depressed mood, delusions, perceptual disturbances. The patient denied suicidal and or homicidal ideation intent or plan. Overall, the patient responded well to inpatient treatment as evidenced by their report of strengthening of coping mechanisms, reduced distress, and more positive outlook on circumstances. Of note there was an improvement of recognizing how emotional state can effect mood and behavior. Safety precautions were put in place which included involving the patient and their family to closely monitor for changes in mental state. In addition, implementing follow up care, screening for the need to remove/securing firearms , weapons and stockpile of medications. Patient/ family instructed to immediately call 911 should any safety concerns arise. AIMS was performed and insignificant for involuntary movement disorders. The patient was advised of the 24 hour / 7 days a week availability of the emergency room and to call 911 in the event of an emergency such as being suicidal and/ or homicidal. The patient was informed of the contact information for [facility] Behavioral Services Unit, Suicide Prevention and Crisis Services, National Suicide Prevention Lifeline, [facility], Alcoholics Anonymous, and [facility]. Medications started included geodon and seroquel for psychotic paranoid features. This was later discontinued. Remeron was resumed and later discontinued as it can potentiate serotonin in combination with TB treatment namely linezolid that acts as MAO inhibitor. Isoniazid (INH) was discontinued as it can have the rare result of producing psychosis. While all these features are present the timing and fluctuating course of his functioning also had characteristics resembling delirium. The family and his outpatient providers confirmed that the patient is not at his baseline. His family confirmed that the patient has no access to firearms or stock piles of medications. A restriction of the patients visiting BSU was put in place during his psychiatric course of hospitalization due to multiple accounts in various settings including the outpatient setting indicating that her presences causes a dramatic change and regression in his behavior. Consults included to infectious disease Dr. Orr and Neurologist Dr. Valdez , and hospitalist team. PT evaluated the patient for gait strengthening. The patient was safe on all checks. Patient was not assaultive or a behavioral problem during the course of admission. Patient will be discharged to [facility] [place] [place] medical unit. Follow up appointment at [facility] Patient informed of follow up appointment times. See more details for follow up care in the discharge plan. Risk factors were mitigated by establishing the patients baseline with close contacts and arranging a family meeting and reducing the number of confounding factors that led to his deviation of his functioning. He was transferred to medical services for further stabilization. Implementing precautionary safety measures by confirming no stockpiles of medications and no access to firearms , stabilization of psychotic features with anti-psychotic agents. Risk factors: Age, No prior history of suicide attempt. Protective factors: Currently no suicidal ideation, intent or plan. , has children. Has family support system. No history of service. Currently no feelings of hopelessness, not in an occupation of social isolation, no family history of suicide, doesnt have access to firearms. No current substance abuse. No current alcohol abuse. Not an anniversary of a loss of a loved one. No changes in relationship status, housing, job, or school. Currently future orientated. Patient engaged in treatment and compliant with medication. Vital Signs Temp Pulse Resp BP Pulse Ox 98.1 F 68 16 153/98 99 02/14/19 08:00 02/14/19 11:00 02/14/19 13:16 02/14/19 11:00 02/14/19 08:00 Sodium 139 mmol/L (135-145) 02/13/19 13:39 Potassium 4.2 mmol/L (3.5-5.0) 02/13/19 13:39 BUN 22 mg/dL (6-24) 02/13/19 13:39 Creatinine 0.86 mg/dL (0.67-1.17) 02/13/19 13:39 Hemoglobin A1c 6.0 % (4.0-5.6) H 02/10/19 07:05 Calcium 9.7 mg/dL (8.6-10.3) 02/13/19 13:39 AST 31 U/L (13-39) 02/13/19 13:39 ALT 30 U/L (7-52) 02/13/19 13:39 Triglycerides 93 mg/dL 02/10/19 07:05 Cholesterol 186 mg/dL 02/10/19 07:05 LDL Cholesterol 68 mg/dL 02/10/19 07:05 Merits Inpatient Hospitalization: Yes Clear for Discharge: Other - Going to medical floor Discharge Planning - Discharge Planning Discharge Plan: Consider Longer Term Tx Outpatient Program: [facility] Recommendations for Continuing Care: Medication Management Medications: Current Medications Acetaminophen (Tylenol Tab*) 650 mg PO Q4H PRN PRN Reason: for pain; or Temp >101 F Al Hydrox/Mg Hydrox/Simethicone (Maalox Plus*) 30 ml PO Q4H PRN PRN Reason: INDIGESTION Albuterol (Ventolin Hfa Inhaler*) 2 puff INH Q4HR PRN PRN Reason: SHORTNESS OF BREATH Ascorbic Acid (Vitamin C Tab*) 500 mg PO DAILY [facility] Last Admin: 02/14/19 09:30 Dose: 500 mg Ethambutol HCl (Myambutol Tab*) 800 mg PO DAILY [facility] Last Admin: 02/14/19 09:30 Dose: 800 mg Linezolid (Zyvox Tab*) 600 mg PO DAILY [facility] Last Admin: 02/14/19 09:30 Dose: 600 mg Multivitamins (Theragran Tab*) 1 tab PO DAILY [facility] Last Admin: 02/14/19 09:30 Dose: 1 tab Discharge Planning: Prescriptions provided for discharge [] Yes [x] No Transfer to medical floor at [facility] [place] [place] Follow up care details as per social work arrangements. Patient response to discharge plan: [] eager for discharge [x] agreeable with discharge plan [] ambivalent about discharge [] disagrees with discharge today
== END 2019-02-14 14:34 | disposition short-term general hospital (02) | DRG 751 ==
LOC: ED 02:52 → BSU 14:07
PROVIDERS: ADMIT Psychiatry & Neurology Psychiatry; ATTEND Psychiatry & Neurology Psychiatry
DX: F23 Brief psychotic disorder (principal); A15.9 Respiratory tuberculosis unspecified; R45.851 Suicidal ideations; F06.8 Other specified mental disorders due to known physiological condition; F33.3 Major depressive disorder, recurrent, severe with psychotic symptoms; T37.1X5A Adverse effect of antimycobacterial drugs, initial encounter; R26.81 Unsteadiness on feet; D50.9 Iron deficiency anemia, unspecified; F51.04 Psychophysiologic insomnia; K27.9 Peptic ulcer, site unspecified, unspecified as acute or chronic, without hemorrhage or perforation; Z88.1 Allergy status to other antibiotic agents; Z88.8 Allergy status to other drugs, medicaments and biological substances; Z79.1 Long term (current) use of non-steroidal anti-inflammatories (NSAID); Z79.51 Long term (current) use of inhaled steroids; Z79.899 Other long term (current) drug therapy; Y92.9 Unspecified place or not applicable
CPT/HCPCS: 36415; 80053; 80061; 80307; 80320; 80329; 81003; 82550; 82607; 82746; 83036; 84443; 85025; 86780; 99222; 99233; 99238; 99284; A9270-GY; G0480

== ENCOUNTER 2019-02-14 14:33 | Observation (INO) | payer BC ==
[2019-02-14] MEDS ORDERED: Acetaminophen TAB* 325 MG PO PRN (14:57)
[2019-02-14] MEDS: NS 0.9% 1000 ML** 1,000 ML IV SCH ×2 (16:00→23:26)
[2019-02-14] MEDS: Heparin VIAL(*) 5000 UNITS/ML VIAL (FIVE THOUSAND) SUBCUT SCH (21:32)
[2019-02-14] MEDS ORDERED: hydrALAZINE IV* 20 MG/ML VIAL IV SLOW PU PRN (22:54)
--- NOTE | 2019-02-14 23:47 | HP ---
AMENDED REPORT NOW INCLUDES DESIGNATED COSIGNER CC: Dr. Paniagua; Dr. Zeng * HISTORY AND PHYSICAL: DATE OF ADMISSION: 02/14/19 PROVIDER: Elder Richards NP. PRIMARY CARE PROVIDER: Dr. Zeng. ATTENDING PHYSICIAN WHILE IN THE HOSPITAL: Dr. Noemy Pollock * (dictated by Elder Richards NP). CHIEF COMPLAINT: Restlessness. 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 The patient has had recent admission to the mental health unit for overdose of tramadol, for which he was admitted in December and expressing paranoid ideation at that point and felt that he was developing toxic psychosis from isoniazid. He was hospitalized and then at that time transferred to behavioral health services. He was discharged on 12/31/18 and then re-presented on 02/10/19 with exacerbation of confusion, not taking his medications, and decreased appetite. The patient was then seen in consultation while admitted on the psychiatric unit by Dr. Valdez from Neurology on 02/13/19, who thought that the patient had toxic psychosis from his isoniazid as the medication could have been reacting with linezolid and his MAO inhibitor and Remeron, which the patient was taking was listed as contraindicated. Both medications were stopped and recommended continuing his anti-tuberculosis therapy and watching him over the next 2 to 3 days. Neurology had recommended that if the patient does not improve, recommended an MRI of the brain with contrast to look for tuberculomas and possibly a lumbar puncture if the patient does not improve. At the time of evaluation, it was felt that the patient was exhibiting toxic psychosis from the medications. The patient was restless and the mental health unit was concerned due to the patient's behaviors. The patient was discussed with Dr. Valdez from Neurology , who had recommended the patient be transferred to the medical floor for IV hydration and further evaluation. At this time, the patient will be transferred from mental health to the medical floor for IV hydration. PAST MEDICAL HISTORY: Significant for: 1. Pulmonary tuberculosis. 2. Medication misuse. 3. Significant weight loss. 4. Iron deficiency anemia. PAST SURGICAL HISTORY: The patient reports he has had part of his stomach removed. HOME MEDICATIONS: Include: 1. Albuterol 2 puffs every 4 hours as needed for shortness of breath. 2. Ethambutol 800 mg p.o. daily. 3. Linezolid 600 mg p.o. daily. 4. Remeron 7.5 mg p.o. at bedtime. 5. Multivitamin. ALLERGIES: LEVOFLOXACIN, TETRACYCLINES, and AZITHROMYCIN. FAMILY HISTORY: No reported history of coronary artery disease, diabetes, or cancer within the family. SOCIAL HISTORY: Denies any tobacco, alcohol, or illicit drug use. He is . Surrogate decision maker in the event if he is unable to make his own decisions is his . He is a full code. REVIEW OF SYSTEMS: The patient denies any fever, chills, chest pain or edema, cough, hemoptysis, or shortness of breath. No nausea or vomiting. The patient does report diarrhea since starting linezolid. Denies any abdominal pain, hematuria, or dysuria. Denies any focal weakness or sensory loss. Denies any visual complaints, dysphagia, arthralgias, myalgias, rashes, lesions, or open sores. The patient does complain of anxiety. PHYSICAL EXAMINATION GENERAL: At this time, Mr. Mcdaniel is resting in his bed in the mental health unit. He is in no acute distress. He is alert and oriented. VITAL SIGNS: Temperature is 98.1, heart rate 64, respirations 16, O2 saturation 99%, blood pressure 151/84. HEENT: Head is atraumatic, normocephalic. Eyes: EOMs are intact. Sclerae anicteric and not pale. Oral mucosa appeared to be moist. NECK: Supple. LUNGS: Clear to auscultation bilaterally. No wheezes, rales, or rhonchi. CARDIAC: S1, S2. Regular rate and rhythm. No rubs or gallops. ABDOMEN: Flat, soft, nontender. Bowel sounds are present x4. MUSCULOSKELETAL: There is no clubbing or cyanosis. NEUROLOGIC: The patient has a soft muffled voice. He does mumble at times and he is hard to understand, but is alert and oriented and able to provide medical history. SKIN: Intact. DIAGNOSTIC STUDIES/LAB DATA: WBCs on 01/13/19 is 7.4, RBCs 4.64, hemoglobin 14.0, hematocrit was 43, platelet count was 305. RDW was 17.0. Sodium 139, potassium 4.2, chloride 103, carbon dioxide was 29, anion gap 7, BUN was 22, creatinine 0.86, glucose was 110, calcium 9.7. Total bili was 0.60, AST was 31 , ALT was 30, alkaline phosphatase 77. Vitamin B12 was greater than 1450, folate was greater than 20, TSH was 2.84 on 02/09/19. ASSESSMENT AND PLAN: Mr. Mcdaniel is a 63-year-old gentleman with past medical history of pulmonary tuberculosis, who is followed by Dr. Paniagua from Infectious Disease, who had increasing acute confusion and was admitted to the mental health unit and thought to have toxic psychosis from his medication, recommended IV hydration. So, he will be admitted to the medical floor. 1. Possible toxic psychosis. The patient was seen and evaluated by Neurology and suspected to have toxic psychosis from a combination of his tuberculosis medication and Remeron and Seroquel and it was recommended that the patient have IV hydration to see if his symptoms improve. The patient will be placed on IV normal saline at 100 cc per hour. He will be seen and followed by Neurology and Psychiatry during this hospitalization. I will place him on 1 to 1 as the patient has been reported to be anxious and restless in the mental health unit and does have a history of medication overdose. We will monitor the patient for any serotonin-like syndrome features. Currently, the patient is not tachycardic. He is not hypertensive. He is afebrile and currently is not exhibiting signs of serotonin syndrome. 2. Pulmonary tuberculosis. The patient should continue on linezolid and ethambutol as previously prescribed. 3. Malnutrition. I have recommended a nutritional consult. I would encourage Ensure and foods to the patient's interest, encourage p.o. intake. 4. FEN: The patient can have a regular diet. 5. Code status: He is a full code. 6. DVT prophylaxis: I will place him on heparin subcu q.12 hours. 7. Disposition: The patient will be placed on inpatient on the medical floor. TIME SPENT: Time spent on this admission is approximately 60 minutes, greater than half that time was spent at the bedside reviewing events leading thus far to his hospitalization, performing physical exam, and reviewing my plan of care. I have discussed this with my attending Dr. Noemy Pollock, she is in agreement with my plan. ELDER RICHARDS, [employer] D[employer]XIDE OPERATOR [id number]/[facility] #: [id number] [facility]IN[facility] MEDICAL CENTERMason
[2019-02-15 07:02] LABS: ABS Eosinophils 0.1 10^3/ul (0-0.6); ABS Lymphocytes 1.1 10^3/ul (1.0-4.8); ABS Monocytes 0.5 10^3/ul (0-0.8); Eosinophil % 1.6 %; Hematocrit 40 % (42-52); Hemoglobin 13.8 g/dL (14.0-18.0); Lymphocyte % 18.5 %; Mean Corpuscular HGB Conc 34 g/dL (31-36); Mean Corpuscular Hemoglobin 31 pg (27-31); Mean Corpuscular Volume 91 fL (80-94); Mean Platelet Volume 7.7 fL (7.4-10.4); Platelet Count 235 10^3/uL (150-450); Red Blood Count 4.44 10^6 /uL (4.18-5.48); Red Cell Distribution Width 16 % (10-15); White Blood Count 5.7 10^3/uL (3.5-10.8)
[2019-02-15 07:22] LABS: BUN/Creatinine Ratio 21.2 (8-20); Calcium 8.4 mg/dL (8.6-10.3); EGFR African American 147.5 (>60); EGFR Non-African American 121.9 (>60); Potassium 3.2 mmol/L (3.5-5.0)
[2019-02-15] MEDS: Heparin VIAL(*) 5000 UNITS/ML VIAL (FIVE THOUSAND) SUBCUT SCH ×2 (07:30→21:01)
[2019-02-15] MEDS: Pyridoxine TAB* 50 MG PO SCH (07:30)
[2019-02-15] MEDS: Multivitamins/Minerals TAB PO SCH (07:30)
[2019-02-15] MEDS: ETHAMBUTOL 400 MG PO SCH (07:30)
[2019-02-15] MEDS: Linezolid TAB* 600 MG PO SCH (07:30)
[2019-02-15] MEDS: NS 0.9% 1000 ML** 1,000 ML IV SCH ×2 (07:30→15:49)
--- NOTE | 2019-02-15 07:51 | PN ---
Subjective Date of Service: 02/15/19 Interval History: HD #2 on 02/15 63 M PMH pulmonary TB, MDR, and recent troubles with depression and paranoia (c/ b x2 suicide attempts by OD this year) who presented with acute toxic psychosis thought to be 2/2 to INH. He was initially admitted to psych, transferred to medicine for ? medical treatment Overnight, no acute events, VSS This morning, he is pleasant and well, ate breakfast, AOx3, endorses depression , sadness, shame but no SI or HI. otherwise soft spoken, asking appropriate questions, denies CP SOB ABBASI GI or complaints Objective Active Medications: Acetaminophen (Tylenol Tab*) 650 mg PO Q4H PRN PRN Reason: FEVER/PAIN Ethambutol HCl (Myambutol Tab*) 800 mg PO DAILY [facility] Last Admin: 02/15/19 07:30 Dose: 800 mg Heparin Sodium (Porcine) (Heparin Vial(*)) 5,000 units SUBCUT Q12HR [facility] Last Admin: 02/15/19 07:30 Dose: 5,000 units Hydralazine HCl (Apresoline Iv*) 5 mg IV SLOW PU Q6H PRN PRN Reason: SBP>180 DBP>110 Last Admin: 02/14/19 23:14 Dose: 5 mg Sodium Chloride (Ns 0.9% 1000 Ml) 1,000 mls @ 125 mls/hr IV PER RATE [facility] Last Admin: 02/15/19 07:30 Dose: 125 mls/hr Linezolid (Zyvox Tab*) 600 mg PO DAILY [facility] Last Admin: 02/15/19 07:30 Dose: 600 mg Multivitamins/Minerals (Theragran/Minerals Tab*) 1 tab PO DAILY [facility] Last Admin: 02/15/19 07:30 Dose: 1 tab Pyridoxine HCl (Vitamin B6 Tab*) 100 mg PO DAILY [facility] Last Admin: 02/15/19 07:30 Dose: 100 mg Vital Signs - 8 hr 02/15/19 03:15 Temperature 97.6 F Pulse Rate 53 Respiratory 16 Rate Blood Pressure 138/76 (mmHg) O2 Sat by Pulse 98 Oximetry Oxygen Devices in Use Now: None Appearance: Frail thin man Ears/Nose/Mouth/Throat: NL Teeth, Lips, Gums, Mucous Membranes Moist Neck: NL Appearance and Movements; NL JVP Respiratory: Symmetrical Chest Expansion and Respiratory Effort, Clear to Auscultation Cardiovascular: NL Sounds; No Murmurs; No JVD, RRR Abdominal: NL Sounds; No Tenderness; No Distention Lymphatic: No Cervical Adenopathy Extremities: No Edema Skin: No Rash or Ulcers Neurological: Alert and Oriented x 3 Result Diagrams: 02/15/19 06:50 02/15/19 06:50 Assess/Plan/Problems-Billing Assessment: 63 M PMH pulmonary TB, MDR, and recent troubles with depression and paranoia ( since November who presented with acute toxic psychosis thought to be 2/2 to INH). He was initially admitted to psych, transferred to medicine for possible serotonin syndrome. - Patient Problems (1) Substance or medication-induced depressive disorder Current Visit: No Status: Acute Priority: High Code(s): F19.94 - OTH PSYCHOACTIVE SUBSTANCE USE, UNSP W MOOD DISORDER; F32.89 - OTHER SPECIFIED DEPRESSIVE EPISODES SNOMED Code(s): 86806534 Comment: - Possible psychosis vs medication induced mood paranoi withactivating MAOI like side effects from INH - Tolerating lineazolid well - Was also on mirtazapaine and seroquel which is currently being held, he still has sig depression, consult to psych about his MH options (2) Drug resistant tuberculosis Current Visit: No Status: Acute Code(s): A15.9 - RESPIRATORY TUBERCULOSIS UNSPECIFIED; Z16.341 - RESISTANCE TO SINGLE ANTIMYCOBACTERIAL DRUG SNOMED Code (s): 881643599 Comment: - cont Linezoled, ethambutol, has failed INH- can change regimen after micro data results - HIV neg - cont vit B6 (3) Iron deficiency anemia Current Visit: No Status: Acute Code(s): D50.9 - IRON DEFICIENCY ANEMIA, UNSPECIFIED SNOMED Code(s): 76618785 Comment: - PO iron as can tolerate (4) Malnutrition Current Visit: No Status: Acute Code(s): E46 - UNSPECIFIED PROTEIN-CALORIE MALNUTRITION SNOMED Code(s): 90218224 Comment: - Nutrition to follow, some componeent of FTT (5) DVT prophylaxis Current Visit: No Status: Acute Code(s): WYB8951 - SNOMED Code(s): 026656608 Comment: - SQH (6) Full code status Current Visit: No Status: Acute Code(s): Z78.9 - OTHER SPECIFIED HEALTH STATUS SNOMED Code(s): 258505485 Status and Disposition: Will be medically clear 8/4 AM if remains well, can d/c 1:1 sitter if psych feels OK, may benefit from readmission to psych to sort out mental health pharmocotherapy in setting of high risk depression with recent OD.
--- NOTE | 2019-02-15 11:35 | CONS ---
CC: Dr. Vimal Joy * CONSULTATION NOTE: DATE OF CONSULT: 02/14/19 CURRENT LOCATION: Room 401, bed 1. Transferred from the psychiatric unit. PRIMARY CARE PROVIDER: Dr. Vimal Joy. REASON FOR CONSULTATION: Unsteadiness and altered mental status. HISTORY OF PRESENT ILLNESS: Briefly, Mr. Mcdaniel is a 63-year-old gentleman with a history of pulmonary TB who has had several recent admissions due to some psychosis, some suicidal thoughts. He was brought to the ER on 02/09/19. At that time, he called 911 stating, "Save my life." He had been admitted prior with an overdose of trazodone and has been treated for pulmonary TB, on month # 4 of 9 treatment. He had not been taking his medications for several days. He was admitted to the psychiatric unit at that point, was mumbling to himself. He had a poor appetite, was apparently not sleeping well, but was not very participatory in the initial examination. He was seen by Dr. Valdez on for persistent altered mental status. At that time, it was felt that he was likely suffering a metabolic/medication psychosis, likely related to a combination of his pulmonary tuberculosis medicines and some psychiatric medicines. He was initially on isoniazid back in December, but that was stopped as there was a concern that he might be developing some toxic psychosis, which is the side effect of this medication. At that time, he had been in the mental health unit as well, had been hospitalized several times in December with exacerbations of confusion. There was a concern that the isoniazid may have been reacting with linezolid, which has some MAOI properties. As well, he was on Remeron and Seroquel. There was concern that due to the multiple medication interactions that he might be developing a psychosis. It was recommended that isoniazid be stopped as well as the Seroquel and the Remeron. Subsequently, he was admitted back to the hospital from the mental health unit due to worsening restlessness and confusion. There was some concern that maybe there might be a serotonin syndrome developing and the patient was transferred to the 4th floor for further evaluation and closer monitoring. Overnight, the patient has done much better. He has a one-to-one sitter. The sitter reports that in the last several days the patient had been largely incoherent, has not been walking, whereas this morning, he is much more talkative, more coherent, more compliant with the examination. She states that he walked to the bathroom, he shaved himself, he brushed his teeth, he wiped up the bathroom and cleaned up, and he has been much more with it and alert. Nursing notes that he did not sleep well last night, although the patient states that he slept better. He continues to have a poor appetite. The patient denies any suicidal or homicidal ideations at this time. He does state that he feels better and he is alert and oriented x3. PAST MEDICAL HISTORY: Includes pulmonary tuberculosis, iron deficiency anemia, weight loss. PAST SURGICAL HISTORY: Reported stomach surgery. CURRENT MEDICATIONS: 1. Tylenol p.r.n. 2. Ethambutol 800 mg daily. 3. Heparin DVT prophylaxis. 4. Hydralazine 5 mg IV slow push. 5. Linezolid 600 mg p.o. daily. 6. Multivitamin 1 tab p.o. daily. 7. Pyridoxine 100 mg p.o. daily. 8. IV fluids. ALLERGIES: LEVOFLOXACIN, TETRACYCLINE, AZITHROMYCIN. FAMILY HISTORY: Noncontributory. He is from [place]. SOCIAL HISTORY: No tobacco, alcohol, or drug use reported. is his surrogate decision maker. REVIEW OF SYSTEMS: In 14-organ systems is noted above in the HPI. In addition , he has had some high blood pressure and has received some blood pressure medication, but denies any headaches, vision changes, stroke-like symptoms, focal numbness, tingling, or weakness, etc. PHYSICAL EXAMINATION: Vital Signs: He has been afebrile; current temp 97.6, pulse 51 to 61, respiratory rate 16, pulse ox 98% to 100% on room air, blood pressure 175/88 to 186/94 to 138/76. In general, he is a well-developed; although thin gentleman, in no acute distress, sitting up on the side of his bed. He is quiet and has a soft voice, but he is participatory in the examination. He is very pleasant this morning, smiles. HEENT: He is normocephalic, atraumatic. Sclerae are anicteric. Mucous membranes are moist. Oropharynx is clear. Nares are patent. Neck supple. No thyromegaly. No carotid bruits. No meningismus. Chest: Clear to auscultation bilaterally. Cardiovascular: Bradycardic, regular rhythm. Abdomen is nontender, nondistended. Scaphoid. Extremities: No clubbing, cyanosis, or edema. He is thin. On neurologic exam, he is awake, alert. He is oriented x3 this morning, knew he was in and that it was 02/15/19. 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 Speech is fluent, although he has a heavy [place]ian accent. He has some paucity of speech. He is a man of few words, but he does answer appropriately. His cranial nerves, pupils were equal , round, and reactive to light. Extraocular muscles were intact. There is no diplopia or nystagmus. No ptosis noted. Face is symmetric. Facial sensation is intact. Tongue is midline. Hearing is intact bilaterally. Palate raises symmetrically. Motor Exam: He spontaneously moves all extremities. He has some slow movements, but in general good tone. No cogwheeling. He is able to do [id number] and rapid alternating movements without difficulty. No tremors noted at rest or with movement or intention. DTRs were 2+ and symmetric in the upper and lower extremities. Sensation is grossly intact to light touch throughout. He is able to ambulate without difficulty. Good arm swing. He has a good gait and stance. DIAGNOSTIC STUDIES/LAB DATA: Lab work this morning: White count of 5.7, hemoglobin of 13.8, hematocrit of 40. Chemistry this morning: Potassium of 3.2 , creatinine of 0.66, BUN of 21.2, hemoglobin A1c of 8.4. B12 is greater than 1450, folate greater than 20. TSH 2.84. Triglycerides 93, cholesterol 186, LDL 68, HDL 98.8. His urine on admission was negative. Toxicology on admission was negative. His syphilis IgG antibody was negative. ASSESSMENT AND PLAN: Mr. Darya Mcdaniel is a 63-year-old gentleman with a history of pulmonary tuberculosis, on month #4 of 9 of treatment, has had some difficulty with psychosis and confusion, depression, some possible suicidal ideations in the recent past. He has been admitted to the mental health unit several times in December, again was admitted in late January, confused with failure to thrive, weight loss, and was seen by Dr. Valdez in the mental health unit. It was felt that his linezolid, which has some MAOI properties, might be reacting with isoniazid, Seroquel, and Remeron and those medications were stopped. He was subsequently admitted to the medical floor for further monitoring and evaluation. He received IV fluids overnight and this morning appears to be remarkably better. He is a soft-spoken man, but he is alert and oriented x3. He is following all commands. He smiles, he is pleasant. He has been walking to the bathroom. He shaved. He cleaned up after himself and he has been very compliant. He denies any suicidal or homicidal ideations. At this point, my concern for any central nervous system process is extremely low. My suspicion for the possibility of central nervous system tuberculosis is low , and given the fact that he is nonfocal, he is doing better, he is afebrile, no nuchal rigidity, and no headaches, I do not think we need to proceed with a lumbar puncture at this time. In addition, I do not think that imaging would be high yield and I think we can hold for now. I would continue to treat conservatively with IV fluids. Nutrition has been consulted for dietary management. He has been losing some weight. Infectious disease has been following him as well. Psychiatry will continue to follow him. At this point, I have no new recommendations from neurology. I would keep him off of the Remeron, Seroquel, and isoniazid if at all possible while he is taking the linezolid. I defer to Dr. Paniagua regarding proper antibiotic therapy, and should he need one of these medications, please let us know assuming that he remains medically stable. I defer to psychiatry regarding his possible discharge plans. [id number]/[facility] #: [id number] TURNER
--- NOTE | 2019-02-15 14:15 | CONSULT ---
Consult Consult: Psychiatric consultation. Asked to see Dr Mcdaniel while on the medical floor. Hospitalist Constanza reports he is medically stable with no sign of serotonin syndrome and no psychotic symptoms off the isoniazid. Linezolid and ethambutol are being continued against TB. Dr. Mcdaniel agrees to return to psychiatric unit tomorrow to allow the full psychiatry treatment team to reassess his psychiatric status on Sunday and arrange aftercare if he is seen as safe for discharge at that time. He is hopeful for discharge Sunday but voices understanding that he will be discharged home from the [facility] on the day that his psychiatrist there assesses him as safe and ready for discharge. He denies any psychotic symptoms. He reports he is sad and ashamed at having overdosed on tramadol last month, but did not intend to by the overdose. He denies any suicidal intent or plan. He reports his sleep was impacted last night by a lot of talking with his 1:1. His attitude was pleasant and cooperative. He reported his mood as good, but with facial expression incongruent to that report, appeared to be wincing.
[2019-02-15] MEDS: Potassium Chlor TAB* 20 MEQ TAB.ER PO SCH (21:01)
--- NOTE | 2019-02-15 21:07 | DS ---
CC: Dr. Zeng; Dr. Paniagua DISCHARGE SUMMARY: DATE OF ADMISSION: 02/14/19 DATE OF ANTICIPATED DISCHARGE: 02/16/19 PRIMARY CARE PROVIDER: Dr. Zeng. DISPOSITION AT THE TIME OF DISCHARGE: Stable to be discharged to home PRIMARY DIAGNOSIS: Medication-induced psychosis. SECONDARY DIAGNOSES: 1. Pulmonary tuberculosis, multi-drug resistant. 2. Depression and anxiety with a history of attempted overdose. 3. Failure to thrive. 4. Iron deficiency anemia. MEDICATIONS AT THE TIME OF DISCHARGE: 1. Linezolid 600 mg p.o. daily. 2. Ethambutol 800 mg p.o. daily. 3. Ascorbic acid 500 mg p.o. daily. 4. Albuterol inhaled powder MDI 2 puffs inhaled q.4 hours p.r.n. for shortness of breath. 5. Paroxetine 100 mg p.o. daily. 6. Multivitamin 1 tab p.o. daily. 7. Acetaminophen 650 mg p.o. q.4 hours p.r.n. 8. Ativan 0.5mg PO q 12 hr PRN for severe anxiety MDD2 #10 Rx on d/c Changes to medication on this hospitalization include the discontinuation of isoniazid 200 mg p.o. daily and the discontinuation of mirtazapine 15 mg p.o. daily, also discontinuation of Seroquel, and the addition of PRN ativan which the patient was started on briefly during psychiatric hospitalization just prior to this admission. 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 The patient has struggled with worsening depression and paranoia since starting on treatment for his pulmonary tuberculosis and has actually had a prior mental health and hospitalization early in the summer with intentional overdose on Tramadol. He re- presented to the emergency room with paranoia and confusion who was admitted to the psychiatric unit initially, though Medicine was consulted to discuss the possibility of medication-induced psychosis from his pulmonary tuberculosis. Medicine recommended that isoniazid and other SSRIs be discontinued and he be brought to the medical service for observation and fluids, which was done for 48 hours. His hospital course by problem is as follows: 1. Medication-induced psychosis. This is most likely from MAOI like properties with isoniazid combined with linezolid, mirtazapine, and Seroquel and Geodon, which was given in the mental health unit. Home medications were discontinued with the exception of linezolid, ethambutol, and pyridoxine, which are currently used to treat his multidrug resistant TB. Isoniazid was discontinued. The patient was given fluids for 48 hours and did very well. By hospital day 1, he was pleasant, A and O x3 and tearful and depressed with some embarrassment around the most recent events in December, though wholly cooperative and showed no signs of rigidity, tremors or concerns for serotonin syndrome. He is medically cleared to be discharged, neurology noted the same. 2. Depression and so worsening paranoid-like features. The patient does have worsening depression in the setting of possible failure to thrive as well as possible MDD at baseline. He REFUSES for voluntary admission back to behavioral services unit to determine if there is pharmacotherapy that will be helpful moving forward and Psychiatry was consulted during this hospitalization , agreed patient is stable for d/c to home on trials of PRN benzodiazpine that family agrees to keep in locked box. 3. Multi-drug resistant tuberculosis. The patient is followed up with Dr. Paniagua in outpatient visit and isoniazid should not be restarted secondary to this reaction to presumed isoniazid. 4. Failure to thrive with significant weight loss, most likely secondary to the patient's underlying major depressive disorder and mood disorder that is otherwise being worked up by Mental Health. 5. Iron deficiency anemia. He has a distant history of partial gastrectomy and a has resultant iron deficiency anemia. He is on vitamin C and iron tabs were continued on discharge, although he was not taking the iron and was not taking multivitamin. On the day of discharge, the patient is tolerating diet, pleasant, calm, and cooperative, with periods of anxiety which family reports are consistent with baseline. The one to one sitter was actually discontinued on 02/15/19. He has no suicidal ideation, although does express grief and remorse of the recent months and events and unfortunelty because of cultural barriers does not accept his mental health diagnoses or would like any follow up in this matter. LABS AND STUDIES DONE DURING THIS HOSPITALIZATION: Labs on 02/15/19 are unremarkable, save for a mildly low hemoglobin of 13.8 and mild hypokalemia at 3.2. No other imaging was done. Consultants during this time were Neurology as well as Psychiatry. ITEMS TO FOLLOW UP ON STATUS POST DISCHARGE: #Neuro: The patient should follow up with Dr. Marc Victor who has offered to follow the patient in Neurology as an outpatient. A followup appointment can be made in 4 to 6 weeks. #Mental Health: Follow up with primary care provider should be secured for this patient and appropriate mental health followup should be done per patient as deemed appropriate, though he was very resitant to discussion 2/2 to cultural barriers. #ID:Furthermore, the patient is undergoing treatment for active pulmonary tuberculosis and should follow up with Dr. Paniagua for his ongoing sensitivities for known multidrug resistance. TIME SPENT: Forty five minutes was spent planning this discharge with over half of that spent directly at the bedside of the patient providing direct patient care. The plan of care was discussed with the patient and his family who agree with readmission to behavioral services unit for further treatment of underlying ongoing mood disorder. If there are any questions about the care of this patient during this hospitalization, please do not hesitate to reach the hospitalist team directly. [id number]/[facility] #: [id number] MTDMason
--- NOTE | 2019-02-15 23:05 | PN ---
Hospitalist Progress Note Date of Service: 02/15/19 HOSPITALIST ADDENDUM Called by RN because patient was c/o CP earlier today, now resolved. C/o mild dyspnea. Check EKG, trops, CxR and monitor.
[2019-02-16] MEDS: NS 0.9% 1000 ML** 1,000 ML IV SCH (00:10)
--- NOTE | 2019-02-16 09:18 | PN ---
Hospitalist Progress Note Date of Service: 02/16/19 HD #3 on 02/16 63 M PMH pulmonary TB, MDR, and recent troubles with depression and paranoia (c/ b x2 suicide attempts by OD this year) who presented with acute toxic psychosis thought to be 2/2 to INH. He was initially admitted to psych, transferred to medicine for r/o serotonin syndrome Overnight, night hospitalist called aboiut episodic CP, trop neg and EKG neg, CXR shows sequela to TB, ideally should have CT but is refusing, unlikely acute nonetheless. He also had HTN at the time and in retrospect he feels it was all anxiety This morning, incredibly anxious, v. eager to go home and family would like him to go home. He is resistant to return to psych care, Dr. Murray to evalute and clear for d/c from MH standpoint as medically he has no evidence of serotonin syndrome or an organic cause ofr his psychosis beyond med side effects and underlying anxiety/depression, which, in a cultural lens is magnified. #Psychosis: Rec'd Geodon and Seroqeul in ER, improved after fluids, d/c INH going home, d/c home mirtazapine #Underlying Mood Disorder: Difficult to assess 2/2 to cultural barrier and stigma around mental health at both his age and former functional status -On discussion with psych and neuro they feel he has sig depression and anxiety , and we are limited in the SSRI class, thus will trial ativan low dose MDD1 and credit support counselor family ot keep medications locked #MDR TB: Linezlid, Ethambutol, Pyroxidine on d/c, hold INH, follow up in clinic with Dr. Paniagua #HTN episodic with CP: Anxiety related, EKG stable, trop neg #DVT:SQH #Code: Full #Dispo: If tolerates PO ativan will send home with 10 tabs
--- NOTE | 2019-02-16 09:48 | PN ---
Subjective Date of Service: 02/16/19 Interval History: Overnight, pt had chest pain, with BP mildly elevated; Trop flat, ECG normal. CXR showed new opacities in left lower lobe which could be a concern of TB reactivation. He has no SOB, no chest pain, no palpitation at this moment. Patient was initially agitated this morning when I saw him. He refused to answer any questions about orientation as he felt ashamed. But after talking to him about the possibility of going home, he felt more relieved. Family reflected that he was much better yesterday, and he was very scared that he needed to go back to psy unit yesterday. They wish he can go home instead of going to mental health unit today. Objective Active Medications: Acetaminophen (Tylenol Tab*) 650 mg PO Q4H PRN PRN Reason: FEVER/PAIN Ethambutol HCl (Myambutol Tab*) 800 mg PO DAILY [facility] Last Admin: 02/15/19 07:30 Dose: 800 mg Heparin Sodium (Porcine) (Heparin Vial(*)) 5,000 units SUBCUT Q12HR [facility] Last Admin: 02/15/19 21:01 Dose: 5,000 units Hydralazine HCl (Apresoline Iv*) 5 mg IV SLOW PU Q6H PRN PRN Reason: SBP>180 DBP>110 Last Admin: 02/14/19 23:14 Dose: 5 mg Sodium Chloride (Ns 0.9% 1000 Ml) 1,000 mls @ 125 mls/hr IV PER RATE [facility] Last Admin: 02/16/19 00:10 Dose: 125 mls/hr Linezolid (Zyvox Tab*) 600 mg PO DAILY [facility] Last Admin: 02/15/19 07:30 Dose: 600 mg Multivitamins/Minerals (Theragran/Minerals Tab*) 1 tab PO DAILY [facility] Last Admin: 02/15/19 07:30 Dose: 1 tab Pyridoxine HCl (Vitamin B6 Tab*) 100 mg PO DAILY [facility] Last Admin: 02/15/19 07:30 Dose: 100 mg Vital Signs - 8 hr 02/16/19 03:15 Temperature 98 F Pulse Rate 51 Respiratory 16 Rate Blood Pressure 135/79 (mmHg) O2 Sat by Pulse 99 Oximetry Oxygen Devices in Use Now: None Exam: Lying on bed comfortably. Confused. Pt refused to answer any orientation questions and said "of course I know, I don't want to answer it". Cachetic looking. Heart: normal S1S2 Lung: clear Unable to access suicidal ideation as pt refused to talk about it. - Nutrition: Malnutrition Diagnosis/Plan Malnutrition Assessment by Registered Dietitian: Malnutrition Assessment Clinical Characteristics Acute,Severe Malnutrition Assessment: severe wt loss: 14.5-18% x 2 weeks Criteria visible muscle mass wasting at triceps and clavicle Malnutrition Assessment: Ensure Clear @ BLD: 240 kcals, 8 g pro per Interventions serving Malnutrition Assessment: Goals 1. Intake will be adequate to promote wt gain and repletion of lean body mass 2. K+ will normalize with repletion/adequate intake Result Diagrams: 02/15/19 06:50 02/15/19 06:50 Assess/Plan/Problems-Billing Assessment: 63 M PMH pulmonary TB, MDR, and recent troubles with depression and paranoia ( since November who presented with acute toxic psychosis thought to be 2/2 to INH). He was initially admitted to psych, transferred to medicine for possible serotonin syndrome. Neurologist was consulted who also thinks not likely serotonin syndrome. Mr. Mcdaniel had an episode of chest pain last night with neg cardiac markers and ecg, which most likely panic attack. Currently he is still confused on and off which likely his baseline in the past 1 month; he is medically cleared but he still needs psychiatrist evaluation. for - Patient Problems (1) Substance or medication-induced depressive disorder Current Visit: No Status: Acute Priority: High Code(s): F19.94 - OTH PSYCHOACTIVE SUBSTANCE USE, UNSP W MOOD DISORDER; F32.89 - OTHER SPECIFIED DEPRESSIVE EPISODES SNOMED Code(s): 22367883 Comment: - Possible psychosis vs medication induced mood paranoi with activating MAOI like side effects from INH - Tolerating linezolid well - Was also on mirtazapaine and seroquel which is currently being held, he still has sig depression, consult to psych about his MH options (2) Drug resistant tuberculosis Current Visit: No Status: Acute Code(s): A15.9 - RESPIRATORY TUBERCULOSIS UNSPECIFIED; Z16.341 - RESISTANCE TO SINGLE ANTIMYCOBACTERIAL DRUG SNOMED Code (s): 653910110 Comment: - cont Linezolid, ethambutol, has failed INH- can change regimen after micro data results - new tree in bud opcification on left lung which raise concern for reactivation of TB, consider CT chest outpatient (3) Iron deficiency anemia Current Visit: No Status: Acute Code(s): D50.9 - IRON DEFICIENCY ANEMIA, UNSPECIFIED SNOMED Code(s): 91182764 Comment: - PO iron as can tolerate (4) Malnutrition Current Visit: No Status: Acute Code(s): E46 - UNSPECIFIED PROTEIN-CALORIE MALNUTRITION SNOMED Code(s): 30153242 Comment: - due to chronic tb status - Nutrition to follow, some component of FTT (5) DVT prophylaxis Current Visit: No Status: Acute Code(s): QYV2821 - SNOMED Code(s): 390489047 Comment: - SQH (6) Full code status Current Visit: No Status: Acute Code(s): Z78.9 - OTHER SPECIFIED HEALTH STATUS SNOMED Code(s): 016672856 Status and Disposition: Will be medically clear 8/4 AM if remains well, can d/c 1:1 sitter if psych feels OK, may benefit from readmission to psych to sort out mental health pharmocotherapy in setting of high risk depression with recent OD. Attestation Documenting Resident: Natividad Parker Supervising Physician: Florencia Potter Attestation: This service has been performed in part by a resident under the direction of a teaching physician.I, Florencia Potter, performed the service, or was physically present during the critical, or sosa portions of the service, furnished by the resident. I participated in the management of the patient.
[2019-02-16] MEDS: Potassium Chlor TAB* 20 MEQ TAB.ER PO SCH (10:00)
[2019-02-16] MEDS: Linezolid TAB* 600 MG PO SCH (10:00)
[2019-02-16] MEDS: ETHAMBUTOL 400 MG PO SCH (10:01)
[2019-02-16] MEDS: Multivitamins/Minerals TAB PO SCH (10:01)
[2019-02-16] MEDS: Pyridoxine TAB* 50 MG PO SCH (10:01)
[2019-02-16] MEDS: Heparin VIAL(*) 5000 UNITS/ML VIAL (FIVE THOUSAND) SUBCUT SCH (10:11)
[2019-02-16] MEDS ORDERED: LORazepam TAB(*) 0.5 MG PO PRN (12:55)
--- NOTE | 2019-02-16 14:07 | CONSULT ---
Consult Consult: please remove this duplicate report
--- NOTE | 2019-02-16 14:10 | CONSULT ---
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 All agree that he came to the ED last week only because of confusion after awakening from a nightmare, and did not express any thoughts or demonstrate any behaviors indicating intent or plan to harm himselft. He is anxious and mildly confused today. Family and providers report this is different from his more lucid and calm demeanor for most of yesterday. 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 They agree that he has not done well on the milieu, and that readmission would not be likely to be beneficial except if needed for safety. 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 Family also reportws being prepared to provide round the clock supervision if need be, and have locked up medications to prevent overdose as occurred in early December. He has agreed to a trial of a minimal dose of benzodiazepine before discharging from the hospital. If he is observed to benefit without side effects, he might be discharged with several minimal dose pills to be taken in the case of severe and disabling anxiety.
[2019-02-16 14:19] VITALS: BP 152/85
--- NOTE | 2019-02-16 14:30 | PN ---
PROGRESS NOTE: DATE OF PROGRESS NOTE: 02/16/19 LOCATION: He is currently in room 401, bed 1. REASON FOR FOLLOWUP: Psychosis on pulmonary medications. SUBJECTIVE: Overnight, the patient had an episode of what sounds like some panic. He developed chest pain after getting infusion of potassium for hypokalemia. Chest pain workup was negative for any cardiac issues. He remains somewhat anxious this morning and appears worse than he did yesterday. Yesterday, he was very calm, collected, did not appear anxious at all. This morning, the family notes that after he found he might have to go back downstairs to the mental health unit yesterday, he started to become much more anxious and this morning seems to be perseverating some on that and very concerned that he might have to go back down there. Per his , who was at the bedside, he had a very hard time being away from his family for the 3 days that he was there prior and the family feels like that this is anxiety and panic related at this point. While he has not had any history of anxiety or depression in the past, since developing pulmonary TB, he has had a very complicated psychiatric course highlighted by episodes of depression, anxiety, psychosis. Since stopping his medications as noted in my initial HPI, he seems to have done better, and yesterday per the family and per the records, he was remarkably better. He remains alert and oriented this morning and has been walking around some. OBJECTIVE: Vital Signs: He is afebrile, temp yesterday at 3 o'clock was 99, temp yesterday at 7 o'clock was 99.4, this morning 98; his pulse is 59; respiratory rate 16; pulse ox is 99%; blood pressure 125/80 to 135/79 to 140/ 80. In general, he is a very thin, well-developed gentleman. He is lying in his bed. He is somewhat anxious. He is rocking back and forth and moaning some. His speech, he has a [place] accent, but is fluent. He is answering all questions appropriately. Chest is clear to auscultation bilaterally. Cardiovascular is regular rate and rhythm. Abdomen is thin, nondistended, nontender. Extremities: No clubbing, cyanosis, or edema. Skin is warm and dry. On neurologic exam, he is awake, alert. He is oriented x3. His speech is fluent. There is no dysarthria. Repetition and recall is intact. His mood is dysthymic. Affect, mood congruent. Cranial Nerves: Pupils were equal, round , and reactive to light and accommodation. Extraocular muscles were intact. Visual louie were full. There is no nystagmus, no ptosis. Facial sensation is intact. Face appears symmetric. Palate is symmetric. Tongue is midline. He spontaneously moves all extremities antigravity with good strength 5/5 throughout. Tone is normal. His [id number] and rapid alternating movements were intact with no intention or postural tremor. There is no resting tremor noted. DTRs were 1+ and symmetric in the upper and lower extremities. Sensation is grossly intact. He is ambulating without assistance. He does appear very anxious. LABORATORY DATA: Lab work includes a troponin of 0.00 overnight. ASSESSMENT AND PLAN: Mr. Mcdaniel is a 63-year-old gentleman with a history of pulmonary tuberculosis, on medication, has been to the hospital several times due to what appears to be some medication interactions. Most recently, his isoniazid, Seroquel, and Remeron have been discontinued, and since that time, he has been slowly getting better, yesterday appeared remarkably well with the thought that he might be going home. Mental Health initially suggested that he come back to the mental health unit tomorrow for complete evaluation, at which point he would likely be discharged home, though once he found this information out, he became incredibly anxious, almost panic at times, had chest pain last night which was noncardiac in nature; this morning appears acutely worse, very anxious and mumbling at times, but completely alert and oriented x3, nonfocal. No light sensitivity, no meningismus, no headaches reported. At this point, I continue to have a low suspicion for any [employer] involvement. My suspicion for [employer]TER CLERK tuberculosis is extremely low. As the patient gets very anxious about medical procedures, I do not see any reason why we need to do an MRI or spinal tap at this point. I continue to suspect that his symptoms are psychiatric in nature. He is very worried and concerned. Family notes that in his entire life he has had a very quiet demeanor, very controlled, very pleasant and I think that the last 6 months for him have been incredibly traumatic. Once he found out yesterday about having to go back down to the mental health unit, he became much more anxious. This morning, after I had a long talk with him about the fact that Psychiatry has recommended that he not come back down to the psychiatric unit, I reassured him that I think that he is going to get better, he seemed to calm down, and in fact, he went to sleep a few minutes later. The family is concerned that at home he might get very anxious and panic again and I did run into the attending psychiatrist who recommended that may be we try a small dose of Xanax to see if that helps with acute anxiety, but I would strongly avoid any new antidepressants or antianxiety medications given his past history and the fact that linezolid has some MAOI properties and seems to have reacted to some of his other medications. I defer to Psychiatry regarding any interactions that benzodiazepines might have with his tuberculosis medications and I defer to them regarding selection of any short-acting medication. I would use any medication sparingly as he seems to be very sensitive to medications. It seems that just reassuring him at this point seemed to have a big difference. I explained my suggestions to the family and they are in agreement. I will be happy to see him as an outpatient, but at this point, I do not see any new neurologic issues that need to be addressed. [id number]/CPS #: [id number] TURNER
== END 2019-02-16 17:57 | disposition home or self-care (01) ==
LOC: MED 16:06
PROVIDERS: ADMIT Internal Medicine; ATTEND Internal Medicine
DX: F19.959 Other psychoactive substance use, unspecified with psychoactive substance-induced psychotic disorder, unspecified (principal); F32.89 Other specified depressive episodes; A15.9 Respiratory tuberculosis unspecified; Z16.30 Resistance to unspecified antimicrobial drugs; R62.7 Adult failure to thrive; R63.4 Abnormal weight loss; D50.9 Iron deficiency anemia, unspecified; E46 Unspecified protein-calorie malnutrition; Z88.1 Allergy status to other antibiotic agents; Z79.899 Other long term (current) drug therapy
CPT/HCPCS: 36415; 71045; 80048; 84484; 85025; 93005; 96361; 96372; 96374; A9270-GY; G0378; J0360; J1644

== ENCOUNTER 2020-05-18 10:05 | Inpatient (IN) ==
[2020-05-18] MEDS ORDERED: Al Hydrox/Mg Hydrox/Simet LIQ 30 ML UDC PO PRN (12:08)
[2020-05-19] MEDS ORDERED: Vitamin THERAPEUTIC TAB PO SCH (09:00)
[2020-05-19 09:41] VITALS: BP 108/66
== END 2020-05-19 17:00 | disposition home or self-care (01) | DRG 754 ==
LOC: BSU 11:49
PROVIDERS: ADMIT Psychiatry & Neurology Psychiatry; ATTEND Psychiatry & Neurology Psychiatry

== ENCOUNTER 2020-12-21 17:07 | Inpatient (IN) ==
[2020-12-21] MEDS ORDERED: Propofol 10 mg/ml 100 ML BTL 100 ML IV ONE (17:12)
[2020-12-21] MEDS ORDERED: Rocuronium 50 mg VIAL 10 mg/ml 5 ml VIAL (50 mg) IV ONE (17:12)
[2020-12-21] MEDS ORDERED: Charcoal ACTIVATED 25 GM/120 ML BTL NG TUBE ONE (17:13)
[2020-12-21] MEDS ORDERED: Etomidate 40 mg/20 ml (2 MG/ML) 20 ml VIAL (40 mg) ONE (17:20)
[2020-12-21] MEDS ORDERED: Propofol 10 mg/ml 100 ML BTL 100 ML ONE (17:22)
[2020-12-21 17:28] LABS: ABS Eosinophils 0.1 10^3/ul (0-0.6); ABS Lymphocytes 1.3 10^3/ul (1.0-4.8); ABS Monocytes 0.6 10^3/ul (0-0.8); ABS Neutrophils 3.2 10^3/ul (1.5-7.7); Eosinophil % 2.8 %; Hematocrit 34 % (42-52); Hemoglobin 11.1 g/dL (14.0-18.0); Lymphocyte % 24.9 %; Mean Corpuscular HGB Conc 33 g/dL (31-36); Mean Corpuscular Hemoglobin 29 pg (27-31); Mean Corpuscular Volume 88 fL (80-94); Mean Platelet Volume 7.8 fL (7.4-10.4); Platelet Count 229 10^3/uL (150-450); Red Blood Count 3.83 10^6 /uL (4.18-5.48); Red Cell Distribution Width 16 % (10-15); White Blood Count 5.2 10^3/uL (3.5-10.8)
[2020-12-21 17:46] LABS: ALT 20 U/L (7-52); AST 22 U/L (13-39); Albumin 3.5 g/dL (3.2-5.2); Albumin/Globulin Ratio 1.4 (1-3); Alkaline Phosphatase 58 U/L (35-149); Anion Gap 6 mmol/L (2-11); Blood Urea Nitrogen 19 mg/dL (6-24); CO2 Carbon Dioxide 26 mmol/L (22-32); Calcium 8.2 mg/dL (8.6-10.3); Chloride 104 mmol/L (101-111); EGFR African American 139.2 (>60); EGFR Non-African American 115.1 (>60); Globulin 2.5 g/dL (2-4); Glucose 98 mg/dL (70-100); Magnesium 2.1 mg/dL (1.9-2.7); Potassium 3.6 mmol/L (3.5-5.0); Sodium 136 mmol/L (135-145)
[2020-12-21] MEDS ORDERED: Flumazenil 0.5 mg/5 ml 0.1 MG/ML 5 ml VIAL IV ONE (18:06)
[2020-12-21 18:13] LABS: Urine Appearance Clear; Urine Bilirubin Negative (Negative); Urine Blood Negative (Negative); Urine Color Straw; Urine Glucose Negative (Negative); Urine Ketones Negative (Negative); Urine Nitrite Negative (Negative); Urine Protein Negative (Negative); Urine Urobilinogen Negative (Negative)
[2020-12-21 18:31] LABS: Urine Benzodiazepine Screen None Detected (None Detect); Urine Cannabinoids Screen None Detected (None Detect); Urine Opiates Screen None Detected (None Detect)
[2020-12-21 19:24] LABS: Acetaminophen < 15 mcg/mL; Alcohol, S < 10 mg/dL (<10); Salicylate < 2.50 mg/dL (<30)
[2020-12-21] MEDS: NORMOSOL-R pH 7.4 1000 mL BAG 1,000 ML IV SCH (19:30)
[2020-12-21 19:39] LABS: TSH Ultra Thyroid Stim Horm 3.31 mcIU/mL (0.34-5.60)
[2020-12-21] MEDS ORDERED: Chlorhexidine MOUTHWASH 0.12% 15 ML UDC SWISH SPIT SCH (21:00)
[2020-12-21] MEDS: Enoxaparin 30 MG/0.3 ML SYR SUBCUT SCH (21:25)
[2020-12-21] MEDS ORDERED: NS 0.9% 1,000 ML IV ONE (22:15)
[2020-12-22] MEDS: Chlorhexidine MOUTHWASH 0.12% 15 ML UDC SWISH SPIT SCH ×6 (00:38→20:25)
[2020-12-22 04:08] LABS: ABS Basophils 0.1 10^3/ul (0-0.2); ABS Eosinophils 0.2 10^3/ul (0-0.6); ABS Lymphocytes 1.3 10^3/ul (1.0-4.8); Eosinophil % 1.5 %; Hematocrit 37 % (42-52); Hemoglobin 12.1 g/dL (14.0-18.0); Lymphocyte % 12.4 %; Mean Corpuscular HGB Conc 33 g/dL (31-36); Mean Corpuscular Hemoglobin 29 pg (27-31); Mean Corpuscular Volume 89 fL (80-94); Mean Platelet Volume 8.2 fL (7.4-10.4); Platelet Count 221 10^3/uL (150-450); Red Blood Count 4.19 10^6 /uL (4.18-5.48); Red Cell Distribution Width 15 % (10-15); White Blood Count 10.6 10^3/uL (3.5-10.8)
[2020-12-22 04:25] LABS: Calcium 7.6 mg/dL (8.6-10.3); EGFR African American 146.6 (>60); EGFR Non-African American 121.1 (>60); Magnesium 2.1 mg/dL (1.9-2.7); Phosphorus 2.9 mg/dL (2.5-5.0); Potassium 3.8 mmol/L (3.5-5.0)
[2020-12-22] MEDS: NORMOSOL-R pH 7.4 1000 mL BAG 1,000 ML IV SCH ×2 (05:05→15:06)
[2020-12-22] MEDS: Pantoprazole VIAL 40 MG VIAL IV SCH (08:21)
[2020-12-22] MEDS: Enoxaparin 30 MG/0.3 ML SYR SUBCUT SCH (20:25)
[2020-12-22] MEDS ORDERED: NORMOSOL-R pH 7.4 1000 mL BAG 1,000 ML IV SCH (22:54)
[2020-12-23] MEDS: Chlorhexidine MOUTHWASH 0.12% 15 ML UDC SWISH SPIT SCH ×7 (00:59→23:50)
[2020-12-23] MEDS: Propofol 10 mg/ml 100 ML BTL 100 ML IV SCH ×2 (05:46→22:24)
[2020-12-23 06:25] LABS: ABS Monocytes 0.8 10^3/ul (0-0.8); ABS Neutrophils 6.6 10^3/ul (1.5-7.7); Eosinophil % 0.6 %; Hematocrit 34 % (42-52); Hemoglobin 10.9 g/dL (14.0-18.0); Lymphocyte % 11.7 %; Mean Corpuscular HGB Conc 32 g/dL (31-36); Mean Corpuscular Hemoglobin 29 pg (27-31); Mean Corpuscular Volume 90 fL (80-94); Mean Platelet Volume 8.4 fL (7.4-10.4); Platelet Count 199 10^3/uL (150-450); Red Blood Count 3.77 10^6 /uL (4.18-5.48); Red Cell Distribution Width 15 % (10-15); White Blood Count 8.5 10^3/uL (3.5-10.8)
[2020-12-23 06:41] LABS: Albumin 2.8 g/dL (3.2-5.2); Albumin/Globulin Ratio 1.2 (1-3); Calcium 7.5 mg/dL (8.6-10.3); EGFR African American 180.9 (>60); EGFR Non-African American 149.5 (>60); Globulin 2.4 g/dL (2-4); Indirect Bilirubin 0.7 mg/dL (0.3-1.0); Magnesium 2.3 mg/dL (1.9-2.7); Phosphorus 2.4 mg/dL (2.5-5.0); Potassium 3.4 mmol/L (3.5-5.0); Total Bilirubin 0.9 mg/dL (0.2-1.0); Total Protein 5.2 g/dL (6.4-8.9)
[2020-12-23] MEDS: Pantoprazole VIAL 40 MG VIAL IV SCH (09:53)
[2020-12-23] MEDS: KCL 20 MEQ/100 ML IVPREMIX 20 MEQ/100 ML BAG IV SCH ×2 (09:54→12:48)
[2020-12-23] MEDS: NORMOSOL-R pH 7.4 1000 mL BAG 1,000 ML IV SCH ×2 (14:00→21:15)
[2020-12-23] MEDS ORDERED: NS 0.9% IV SCH (19:45)
[2020-12-23] MEDS ORDERED: Piperacillin/Tazobac ADVAN 3.375 GM in NS 0.9% 100 ml BAG 100 ML IV ONE (19:47)
[2020-12-23] MEDS ORDERED: Zosyn per Pharmacy NOTE FOLLOW UP SCH (20:00)
[2020-12-23 20:14] LABS: ABS Lymphocytes 1.3 10^3/ul (1.0-4.8); ABS Neutrophils 8.9 10^3/ul (1.5-7.7); Eosinophil % 0.4 %; Hematocrit 38 % (42-52); Hemoglobin 12.4 g/dL (14.0-18.0); Lymphocyte % 11.2 %; Mean Corpuscular HGB Conc 33 g/dL (31-36); Mean Corpuscular Hemoglobin 29 pg (27-31); Mean Corpuscular Volume 89 fL (80-94); Mean Platelet Volume 8.4 fL (7.4-10.4); Nucleated Red Blood Cells % 0.1; Platelet Count 247 10^3/uL (150-450); Red Blood Count 4.24 10^6 /uL (4.18-5.48); Red Cell Distribution Width 16 % (10-15); White Blood Count 11.2 10^3/uL (3.5-10.8)
[2020-12-23 20:31] LABS: ALT 46 U/L (7-52); Albumin 3.1 g/dL (3.2-5.2); Albumin/Globulin Ratio 1.2 (1-3); Alkaline Phosphatase 91 U/L (35-149); Blood Urea Nitrogen 11 mg/dL (6-24); CO2 Carbon Dioxide 26 mmol/L (22-32); Calcium 7.9 mg/dL (8.6-10.3); Chloride 100 mmol/L (101-111); EGFR African American 139.2 (>60); EGFR Non-African American 115.1 (>60); Globulin 2.6 g/dL (2-4); Glucose 127 mg/dL (70-100); Sodium 133 mmol/L (135-145); Total Protein 5.7 g/dL (6.4-8.9)
[2020-12-23] MEDS ORDERED: NS 0.9% 100 ml BAG 100 ML ONE (21:13)
[2020-12-23] MEDS: Enoxaparin 30 MG/0.3 ML SYR SUBCUT SCH (21:15)
[2020-12-23 21:32] LABS: Anion Gap 7 mmol/L (2-11)
[2020-12-23] MEDS ORDERED: NS 0.9% 1000 ml BAG 1,000 ML IV ONE (23:34)
[2020-12-24] MEDS ORDERED: NS 0.9% 100 ml BAG 100 ML ONE (00:17)
[2020-12-24] MEDS: ZOSYN 3.375 GM Q8H per EXTENDED INFUSION IV SCH ×3 (01:50→16:33)
[2020-12-24] MEDS: Chlorhexidine MOUTHWASH 0.12% 15 ML UDC SWISH SPIT SCH ×5 (04:02→19:59)
[2020-12-24 04:51] LABS: Potassium Redraw 3.6 mmol/L (3.5-5.0)
[2020-12-24] MEDS: Pantoprazole VIAL 40 MG VIAL IV SCH (08:09)
[2020-12-24] MEDS: NORMOSOL-R pH 7.4 1000 mL BAG 1,000 ML IV SCH (10:19)
[2020-12-24 18:58] LABS: ABS Eosinophils 0.1 10^3/ul (0-0.6); ABS Lymphocytes 0.9 10^3/ul (1.0-4.8); ABS Monocytes 1.1 10^3/ul (0-0.8); ABS Neutrophils 6.3 10^3/ul (1.5-7.7); Eosinophil % 1.3 %; Hematocrit 32 % (42-52); Hemoglobin 10.3 g/dL (14.0-18.0); Mean Corpuscular HGB Conc 33 g/dL (31-36); Mean Corpuscular Hemoglobin 29 pg (27-31); Mean Corpuscular Volume 90 fL (80-94); Mean Platelet Volume 9.3 fL (7.4-10.4); Platelet Count 172 10^3/uL (150-450); Red Cell Distribution Width 16 % (10-15); White Blood Count 8.5 10^3/uL (3.5-10.8)
[2020-12-24 19:03] LABS: Magnesium 1.9 mg/dL (1.9-2.7); Phosphorus 1.4 mg/dL (2.5-5.0)
[2020-12-24 19:27] LABS: EGFR African American 206.7 (>60); EGFR Non-African American 170.8 (>60); Potassium 3.8 mmol/L (3.5-5.0)
[2020-12-24 19:32] LABS: Calcium 5.7 mg/dL (8.6-10.3)
[2020-12-24] MEDS ORDERED: Acetaminophen IV 1 GM/100ML 100 ML IVPB ONE (19:39)
[2020-12-24] MEDS: Enoxaparin 30 MG/0.3 ML SYR SUBCUT SCH (19:59)
[2020-12-24 20:23] LABS: Calcium 7.3 mg/dL (8.6-10.3); EGFR Non-African American 159.5 (>60); Potassium 3.6 mmol/L (3.5-5.0)
[2020-12-24] MEDS ORDERED: CALCIUM GLUCONATE 1GM/50ML NS 1 GM/50 ML BAG IV ONE (21:46)
[2020-12-25] MEDS: Chlorhexidine MOUTHWASH 0.12% 15 ML UDC SWISH SPIT SCH ×3 (00:11→14:36)
[2020-12-25] MEDS: ZOSYN 3.375 GM Q8H per EXTENDED INFUSION IV SCH ×3 (00:39→16:49)
[2020-12-25 05:50] LABS: ABS Eosinophils 0.1 10^3/ul (0-0.6); ABS Monocytes 0.7 10^3/ul (0-0.8); ABS Neutrophils 8.6 10^3/ul (1.5-7.7); Eosinophil % 0.7 %; Hematocrit 36 % (42-52); Hemoglobin 11.8 g/dL (14.0-18.0); Lymphocyte % 9.3 %; Mean Corpuscular HGB Conc 33 g/dL (31-36); Mean Corpuscular Hemoglobin 29 pg (27-31); Mean Corpuscular Volume 89 fL (80-94); Mean Platelet Volume 8.9 fL (7.4-10.4); Platelet Count 200 10^3/uL (150-450); Red Blood Count 4.05 10^6 /uL (4.18-5.48); Red Cell Distribution Width 15 % (10-15); White Blood Count 10.4 10^3/uL (3.5-10.8)
[2020-12-25 06:12] LABS: Calcium 7.6 mg/dL (8.6-10.3); EGFR African American 197.4 (>60); EGFR Non-African American 163.1 (>60); Magnesium 2.1 mg/dL (1.9-2.7); Phosphorus 2.3 mg/dL (2.5-5.0); Potassium 3.6 mmol/L (3.5-5.0)
[2020-12-25] MEDS ORDERED: Potassium Phosphate IV 15 MMOLE in NS 0.9% 250 ml 250 ML IVPB ONE (08:12)
[2020-12-25] MEDS: Pantoprazole VIAL 40 MG VIAL IV SCH (08:47)
[2020-12-25] MEDS ORDERED: Polyethylene Glycol 3350 17 GM PACKET PO PRN (09:25)
[2020-12-25] MEDS: Senna TAB 8.6 mg TAB PO SCH ×2 (11:27→20:27)
[2020-12-25] MEDS: Enoxaparin 30 MG/0.3 ML SYR SUBCUT SCH (20:26)
[2020-12-26] MEDS: ZOSYN 3.375 GM Q8H per EXTENDED INFUSION IV SCH ×2 (00:30→08:16)
[2020-12-26 05:29] LABS: ABS Eosinophils 0.1 10^3/ul (0-0.6); ABS Lymphocytes 1.5 10^3/ul (1.0-4.8); ABS Monocytes 0.8 10^3/ul (0-0.8); ABS Neutrophils 5.8 10^3/ul (1.5-7.7); Eosinophil % 0.9 %; Hematocrit 33 % (42-52); Lymphocyte % 17.9 %; Mean Corpuscular HGB Conc 33 g/dL (31-36); Mean Corpuscular Hemoglobin 29 pg (27-31); Mean Corpuscular Volume 88 fL (80-94); Mean Platelet Volume 8.4 fL (7.4-10.4); Platelet Count 227 10^3/uL (150-450); Red Blood Count 3.77 10^6 /uL (4.18-5.48); Red Cell Distribution Width 15 % (10-15); White Blood Count 8.3 10^3/uL (3.5-10.8)
[2020-12-26 05:49] LABS: Calcium 7.7 mg/dL (8.6-10.3); EGFR African American 157.5 (>60); EGFR Non-African American 130.2 (>60); Phosphorus 2.3 mg/dL (2.5-5.0); Potassium 3.4 mmol/L (3.5-5.0)
[2020-12-26] MEDS: Senna TAB 8.6 mg TAB PO SCH (08:17)
[2020-12-26] MEDS ORDERED: Potassium Chlor 20 meq TAB.ER PO ONE (08:55)
[2020-12-26] MEDS ORDERED: Amoxicillin/Clavul 875/125 TAB (Augmentin 875 tab) PO ONE (16:22)
[2020-12-26 16:29] VITALS: BP 126/80
== END 2020-12-26 17:28 | disposition home or self-care (01) | DRG 918 ==
LOC: ED 17:07 → ICU 18:45 → MEDTELE 12-25 13:52
PROVIDERS: ADMIT Internal Medicine Critical Care Medicine; ATTEND Internal Medicine

== ENCOUNTER 2023-10-31 12:12 | Inpatient (IN) ==
[2023-10-31] MEDS: Lactated Ringers 1000 ml BAG 1,000 ML IV ONE ×2 (12:23→14:49)
[2023-10-31] MEDS ORDERED: LORazepam 2 MG/ML 1 mL Syringe ONE (12:24)
[2023-10-31 12:37] LABS: ABS Lymphocytes 0.7 10^3/uL (1.0-4.8); ABS Monocytes 0.6 10^3/uL (0.0-1.1); ABS Neutrophils 14.9 10^3/uL (1.5-7.6); ABS Nucleated RBC 0.01 10^3/ul; Eosinophil % 0.1 %; Hematocrit 42.4 % (38-53); Hemoglobin 13.9 g/dL (13.2-16.3); Lymphocyte % 4.4 %; Mean Corpuscular Hemoglobin 32.4 pg (27-33); Mean Corpuscular Hgb Conc 32.7 g/dL (31-36); Mean Platelet Volume 7.3 fL (7.5-11.2); Nucleated Red Blood Cells % 0.1 %/100WBC (0.0-0.8); Platelet Count 365 10^3/uL (150-450); Red Blood Count 4.28 10^6/uL (4.06-5.63); Red Cell Distribution Width 12.9 % (12-17); White Blood Count 16.3 10^3/uL (3.6-10.2)
[2023-10-31 12:48] LABS: PCO2 Arterial 46 mmHg (35-45); PO2 Arterial 109 mmHg (80-100)
[2023-10-31 13:41] LABS: ALT 12 U/L (7-52); Acetaminophen < 15 mcg/mL; Albumin 3.3 g/dL (3.2-5.2); Albumin/Globulin Ratio 0.9 (1-3); Alcohol, S < 13 mg/dL (<13); Alkaline Phosphatase 139 U/L (35-149); Blood Urea Nitrogen 33 mg/dL (6-24); C Reactive Protein 23.05 mg/L (<8.01); CO2 Carbon Dioxide 24 mmol/L (22-32); Calcium 8.6 mg/dL (8.6-10.3); Chloride 100 mmol/L (101-111); Creatinine, Serum 0.96 mg/dL (0.67-1.17); Globulin 3.6 g/dL (2-4); Glucose 86 mg/dL (70-100); Magnesium 2.2 mg/dL (1.9-2.7); Salicylate < 2.50 mg/dL (<30); Sodium 139 mmol/L (135-145); TSH Ultra Thyroid Stim Horm 3.21 mcIU/mL (0.34-5.60); Total Protein 6.9 g/dL (6.4-8.9); eGFR CKD-EPI 86.1 (>60)
[2023-10-31] MEDS ORDERED: Al Hydrox/Mg Hydrox/Simet LIQ 30 ML UDC PO PRN (15:50)
[2023-10-31] MEDS ORDERED: Polyethylene Glycol 3350 17 GM PACKET PO PRN (15:50)
[2023-10-31 15:51] LABS: AST 26 U/L (13-39); Anion Gap 15 mmol/L (2-16)
[2023-10-31] MEDS ORDERED: Zosyn per Pharmacy NOTE FOLLOW UP SCH (16:00)
[2023-10-31] MEDS: NS 0.9% 1000 ml BAG 1,000 ML IV SCH (17:14)
[2023-10-31] MEDS: cefTRIAXone 1 gm/50 mL D5W 1 GM/50 ML BAG IV ONE (17:15)
[2023-10-31] MEDS: Enoxaparin 30 MG/0.3 ML SYR SUBCUT SCH (17:41)
[2023-10-31] MEDS: Piperacillin/Tazobac 3.375 BAG 3.375 GM/100 ML BAG IV ONE (18:11)
[2023-10-31] MEDS: ZOSYN 3.375 GM Q8H per EXTENDED INFUSION IV SCH (22:16)
[2023-11-01 07:27] LABS: Calcium 8.1 mg/dL (8.6-10.3); Creatinine, Serum 0.86 mg/dL (0.67-1.17); Magnesium 1.9 mg/dL (1.9-2.7); Phosphorus 3.4 mg/dL (2.5-5.0); Potassium 3.5 mmol/L (3.5-5.0); eGFR CKD-EPI 94.3 (>60)
[2023-11-01] MEDS: cefTRIAXone 1 gm/50 mL D5W 1 GM/50 ML BAG IV SCH (12:57)
[2023-11-01] MEDS: OLANZapine IM (NF) 10 MG VIAL IM SCH (23:03)
[2023-11-02 09:47] LABS: ABS Lymphocytes 0.8 10^3/uL (1.0-4.8); ABS Monocytes 0.7 10^3/uL (0.0-1.1); Eosinophil % 0.1 %; Hematocrit 36.9 % (38-53); Lymphocyte % 6.5 %; Mean Corpuscular Hemoglobin 32.3 pg (27-33); Mean Corpuscular Hgb Conc 32.6 g/dL (31-36); Mean Corpuscular Volume 99.4 fL (80-97); Mean Platelet Volume 7.4 fL (7.5-11.2); Platelet Count 271 10^3/uL (150-450); Red Blood Count 3.71 10^6/uL (4.06-5.63); Red Cell Distribution Width 12.8 % (12-17); White Blood Count 12.5 10^3/uL (3.6-10.2)
[2023-11-02 10:28] LABS: Calcium 7.9 mg/dL (8.6-10.3); Creatinine, Serum 0.74 mg/dL (0.67-1.17); Magnesium 2.1 mg/dL (1.9-2.7); Potassium 3.2 mmol/L (3.5-5.0); eGFR CKD-EPI 98.7 (>60)
[2023-11-02] MEDS: Potassium Chloride LIQUID 20 MEQ/15 ML LIQUID NG TUBE ONE (11:37)
[2023-11-02] MEDS: LORazepam 2 mg VIAL 1 ml IV PUSH ONE (16:16)
[2023-11-02] MEDS: diazePAM INJ CARPUJECT 5 MG/ML SYRINGE IV ONE (16:37)
[2023-11-02 20:41] LABS: Urine Appearance Clear; Urine Bilirubin Negative (Negative); Urine Blood Negative (Negative); Urine Color Yellow; Urine Glucose 2+ (>=150 mg/dL) (Negative); Urine Ketones 2+ (Negative); Urine Nitrite Negative (Negative); Urine Protein Trace (Negative); Urine Specific Gravity 1.024 (1.002-1.030); Urine Urobilinogen Negative (Negative); Urine pH 5.5 (5.0-8.0)
[2023-11-02 21:18] LABS: Urine Benzodiazepine Screen None Detected (None Detect); Urine Cannabinoids Screen None Detected (None Detect); Urine Opiates Screen None Detected (None Detect)
[2023-11-03 10:46] LABS: ABS Eosinophils 0.1 10^3/uL (0.0-0.5); ABS Lymphocytes 0.9 10^3/uL (1.0-4.8); ABS Monocytes 0.6 10^3/uL (0.0-1.1); ABS Neutrophils 8.9 10^3/uL (1.5-7.6); Eosinophil % 0.7 %; Hemoglobin 12.8 g/dL (13.2-16.3); Mean Corpuscular Hemoglobin 32.6 pg (27-33); Mean Corpuscular Hgb Conc 32.9 g/dL (31-36); Mean Corpuscular Volume 99.1 fL (80-97); Mean Platelet Volume 7.4 fL (7.5-11.2); Platelet Count 263 10^3/uL (150-450); Red Blood Count 3.94 10^6/uL (4.06-5.63); Red Cell Distribution Width 12.9 % (12-17); White Blood Count 10.5 10^3/uL (3.6-10.2)
[2023-11-03 11:24] LABS: Calcium 7.6 mg/dL (8.6-10.3); Creatinine, Serum 0.57 mg/dL (0.67-1.17); Phosphorus 1.5 mg/dL (2.5-5.0); Potassium 3.7 mmol/L (3.5-5.0); eGFR CKD-EPI 106.8 (>60)
[2023-11-03] MEDS: Potassium Phosphate IV 10 MMOL in NS 0.9% 250 ml 250 ML IVPB ONE (14:35)
[2023-11-04 06:53] LABS: ABS Eosinophils 0.1 10^3/uL (0.0-0.5); ABS Monocytes 0.6 10^3/uL (0.0-1.1); ABS Neutrophils 7.5 10^3/uL (1.5-7.6); ABS Nucleated RBC 0.01 10^3/ul; Eosinophil % 1.3 %; Hematocrit 38.7 % (38-53); Hemoglobin 12.9 g/dL (13.2-16.3); Lymphocyte % 10.6 %; Mean Corpuscular Hemoglobin 32.6 pg (27-33); Mean Corpuscular Hgb Conc 33.2 g/dL (31-36); Mean Corpuscular Volume 98.2 fL (80-97); Mean Platelet Volume 7.4 fL (7.5-11.2); Nucleated Red Blood Cells % 0.1 %/100WBC (0.0-0.8); Platelet Count 259 10^3/uL (150-450); Red Blood Count 3.94 10^6/uL (4.06-5.63); Red Cell Distribution Width 12.8 % (12-17); White Blood Count 9.3 10^3/uL (3.6-10.2)
[2023-11-04 07:37] LABS: Calcium 7.5 mg/dL (8.6-10.3); Creatinine, Serum 0.47 mg/dL (0.67-1.17); Magnesium 1.9 mg/dL (1.9-2.7); Phosphorus 2.4 mg/dL (2.5-5.0); Potassium 3.9 mmol/L (3.5-5.0); eGFR CKD-EPI 113.2 (>60)
[2023-11-04] MEDS: Potassium Phosphate IV 5 MMOL in NS 0.9% 250 ml 250 ML IVPB ONE (12:53)
[2023-11-04] MEDS: hydrALAZINE 20 mg/ml 1 ML Vial IV IV SLOW PU PRN (23:12)
[2023-11-05 05:32] LABS: PCO2 Arterial 45 mmHg (35-45); PO2 Arterial 63 mmHg (80-100)
[2023-11-05 06:31] LABS: ABS Lymphocytes 0.9 10^3/uL (1.0-4.8); ABS Monocytes 1.1 10^3/uL (0.0-1.1); ABS Neutrophils 11.6 10^3/uL (1.5-7.6); ABS Nucleated RBC 0.01 10^3/ul; Eosinophil % 0.2 %; Hematocrit 39.7 % (38-53); Hemoglobin 13.3 g/dL (13.2-16.3); Lymphocyte % 6.4 %; Mean Corpuscular Hemoglobin 32.9 pg (27-33); Mean Corpuscular Hgb Conc 33.6 g/dL (31-36); Mean Platelet Volume 7.6 fL (7.5-11.2); Platelet Count 311 10^3/uL (150-450); Red Blood Count 4.05 10^6/uL (4.06-5.63); Red Cell Distribution Width 12.6 % (12-17); White Blood Count 13.7 10^3/uL (3.6-10.2)
[2023-11-05 07:07] LABS: Calcium 7.7 mg/dL (8.6-10.3); Creatinine, Serum 0.42 mg/dL (0.67-1.17); Phosphorus 3.4 mg/dL (2.5-5.0); Potassium 3.7 mmol/L (3.5-5.0); eGFR CKD-EPI 117.1 (>60)
[2023-11-05] MEDS ORDERED: Zosyn per Pharmacy NOTE FOLLOW UP SCH (12:00)
[2023-11-05] MEDS: Piperacillin/Tazobac 3.375 BAG 3.375 GM/100 ML BAG IV ONE (13:03)
[2023-11-05] MEDS ORDERED: Ketamine HCL 50 mg/ml 10 ml VIAL (500 MG) ONE (13:48)
[2023-11-05] MEDS ORDERED: Rocuronium 50 mg VIAL 10 mg/ml 5 ml VIAL (50 mg) ONE (13:48)
[2023-11-05] MEDS: Norepinephrine 4 MG/250mL D5W 4,000 MCG/250 ML BAG IV ONE (16:00)
[2023-11-05] MEDS: Rocuronium 50 mg VIAL 10 mg/ml 5 ml VIAL (50 mg) ONE (16:00)
[2023-11-05] MEDS: Propofol 10 mg/ml 100 ML BTL 1,000 MG/100 ML BTL ONE (16:01)
[2023-11-05] MEDS: ZOSYN 3.375 GM Q8H per EXTENDED INFUSION IV SCH (16:22)
[2023-11-05] MEDS: Norepinephrine 4 MG/250mL NS 4,000 MCG/250 ML BAG IV SCH (16:38)
[2023-11-05] MEDS: Norepinephrine 4 MG/250mL D5W 4,000 MCG/250 ML BAG IV SCH (16:43)
[2023-11-05] MEDS: Propofol 10 mg/ml 100 ML BTL 1,000 MG/100 ML BTL IV SCH ×2 (16:45→16:50)
[2023-11-05 18:09] LABS: PCO2 Arterial 41 mmHg (35-45); PO2 Arterial 169 mmHg (80-100)
[2023-11-05] MEDS: Pantoprazole VIAL 40 MG VIAL IV SCH (18:23)
[2023-11-05] MEDS: Chlorhexidine MOUTHWASH 0.12% 15 ML UDC SWISH SPIT SCH (18:25)
[2023-11-05] MEDS: fentaNYL INFUSION 50 mcg/mL VL 2,500 MCG/50 ML VIAL IV SCH (18:36)
[2023-11-05] MEDS: Lactated Ringers 1000 ml BAG 1,000 ML IV ONE (23:14)
[2023-11-06 00:12] LABS: Calcium 7.7 mg/dL (8.6-10.3); Creatinine, Serum 0.56 mg/dL (0.67-1.17); Potassium 3.7 mmol/L (3.5-5.0); eGFR CKD-EPI 107.4 (>60)
[2023-11-06 05:05] LABS: Hematocrit 40.4 % (38-53); Hemoglobin 13.3 g/dL (13.2-16.3); Mean Corpuscular Hemoglobin 32.2 pg (27-33); Mean Corpuscular Hgb Conc 32.9 g/dL (31-36); Mean Corpuscular Volume 97.8 fL (80-97); Mean Platelet Volume 8.1 fL (7.5-11.2); Platelet Count 296 10^3/uL (150-450); Red Blood Count 4.13 10^6/uL (4.06-5.63); Red Cell Distribution Width 12.5 % (12-17); White Blood Count 18.4 10^3/uL (3.6-10.2)
[2023-11-06 05:35] LABS: Calcium 7.7 mg/dL (8.6-10.3); Creatinine, Serum 0.57 mg/dL (0.67-1.17); Phosphorus 3.3 mg/dL (2.5-5.0); Potassium 3.8 mmol/L (3.5-5.0); eGFR CKD-EPI 106.8 (>60)
[2023-11-06] MEDS: Lactated Ringers 1000 ml BAG 1,000 ML IV ONE (17:21)
[2023-11-06 18:51] LABS: Anion Gap 8 mmol/L (2-16); Blood Urea Nitrogen 19 mg/dL (6-24); CO2 Carbon Dioxide 30 mmol/L (22-32); Calcium 7.4 mg/dL (8.6-10.3); Chloride 99 mmol/L (101-111); Creatinine, Serum 0.53 mg/dL (0.67-1.17); Glucose 103 mg/dL (70-100); Sodium 137 mmol/L (135-145); eGFR CKD-EPI 109.2 (>60)
[2023-11-06 19:54] LABS: Phosphorus 2.8 mg/dL (2.5-5.0); Potassium Redraw 3.3 mmol/L (3.5-5.0)
[2023-11-06] MEDS: KCL 20 MEQ/100 ML IVPREMIX 20 MEQ/100 ML BAG IV SCH (23:15)
[2023-11-07 05:40] LABS: ABS Eosinophils 0.1 10^3/uL (0.0-0.5); ABS Lymphocytes 1.2 10^3/uL (1.0-4.8); ABS Monocytes 1.1 10^3/uL (0.0-1.1); ABS Neutrophils 11.2 10^3/uL (1.5-7.6); ABS Nucleated RBC 0.01 10^3/ul; Eosinophil % 0.5 %; Hematocrit 35.1 % (38-53); Hemoglobin 11.6 g/dL (13.2-16.3); Mean Corpuscular Hemoglobin 32.2 pg (27-33); Mean Corpuscular Hgb Conc 32.9 g/dL (31-36); Mean Corpuscular Volume 97.7 fL (80-97); Mean Platelet Volume 8.1 fL (7.5-11.2); Nucleated Red Blood Cells % 0.1 %/100WBC (0.0-0.8); Platelet Count 295 10^3/uL (150-450); Red Blood Count 3.59 10^6/uL (4.06-5.63); Red Cell Distribution Width 12.9 % (12-17); White Blood Count 13.7 10^3/uL (3.6-10.2)
[2023-11-07 06:23] LABS: Calcium 7.5 mg/dL (8.6-10.3); Creatinine, Serum 0.65 mg/dL (0.67-1.17); Potassium 4.6 mmol/L (3.5-5.0); eGFR CKD-EPI 102.6 (>60)
[2023-11-07 07:33] LABS: Phosphorus 2.5 mg/dL (2.5-5.0)
[2023-11-07] MEDS: Rocuronium 50 mg VIAL 10 mg/ml 5 ml VIAL (50 mg) IV ONE (09:19)
[2023-11-07] MEDS: Morphine 2 MG/ML SYRINGE IV PRN (11:52)
[2023-11-07] MEDS: Sodium Phosphate IV 30 MMOL in NS 0.9% 250 ml 250 ML IV ONE (21:07)
[2023-11-08 05:45] LABS: ABS Eosinophils 0.1 10^3/uL (0.0-0.5); ABS Monocytes 0.6 10^3/uL (0.0-1.1); ABS Neutrophils 6.2 10^3/uL (1.5-7.6); Hematocrit 30.9 % (38-53); Hemoglobin 10.6 g/dL (13.2-16.3); Lymphocyte % 12.3 %; Mean Corpuscular Hemoglobin 33.2 pg (27-33); Mean Corpuscular Hgb Conc 34.2 g/dL (31-36); Mean Platelet Volume 8.1 fL (7.5-11.2); Nucleated Red Blood Cells % 0.1 %/100WBC (0.0-0.8); Platelet Count 275 10^3/uL (150-450); Red Blood Count 3.18 10^6/uL (4.06-5.63); Red Cell Distribution Width 12.8 % (12-17); White Blood Count 7.8 10^3/uL (3.6-10.2)
[2023-11-08 06:11] LABS: Calcium 7.2 mg/dL (8.6-10.3); Creatinine, Serum 0.57 mg/dL (0.67-1.17); Potassium 3.9 mmol/L (3.5-5.0); eGFR CKD-EPI 106.8 (>60)
[2023-11-08 06:39] LABS: HIV 4th Generation Nonreactive (Nonreactive)
[2023-11-08] MEDS: KCL 10 MEQ/50 ML IVPREMIX 10 MEQ/50 ML BAG IV ONE (07:09)
[2023-11-08] MEDS ORDERED: EPINEPHrine,Rac 2.25% NEB.SOL 0.5 ML INH PRN (07:43)
[2023-11-08 10:33] LABS: Albumin 2.3 g/dL (3.2-5.2); Globulin 2.4 g/dL (2-4); Total Bilirubin 0.4 mg/dL (0.2-1.0); Total Protein 4.7 g/dL (6.4-8.9)
[2023-11-08] MEDS: TPN 24 HR with Dextrose 50% Water 500 ML, Amino Acid Infusion 10% 850 ML, Sterile Water... CENT\\PICC SCH (17:13)
[2023-11-08] MEDS: Haloperidol 5 mg/ml SDV IV/IM 5 MG/ML AMP IV SLOW PU SCH (20:31)
[2023-11-08 22:04] LABS: Calcium 7.5 mg/dL (8.6-10.3); Creatinine, Serum 0.65 mg/dL (0.67-1.17); Phosphorus 2.7 mg/dL (2.5-5.0); Potassium 3.6 mmol/L (3.5-5.0); eGFR CKD-EPI 102.6 (>60)
[2023-11-09] MEDS: Haloperidol 5 mg/ml SDV IV/IM 5 MG/ML AMP IV SLOW PU ONE (02:40)
[2023-11-09 05:12] LABS: ABS Eosinophils 0.1 10^3/uL (0.0-0.5); ABS Lymphocytes 0.7 10^3/uL (1.0-4.8); ABS Monocytes 0.7 10^3/uL (0.0-1.1); ABS Neutrophils 5.2 10^3/uL (1.5-7.6); Eosinophil % 1.3 %; Hematocrit 32.8 % (38-53); Hemoglobin 11.1 g/dL (13.2-16.3); Lymphocyte % 10.8 %; Mean Corpuscular Hgb Conc 33.9 g/dL (31-36); Mean Corpuscular Volume 97.4 fL (80-97); Mean Platelet Volume 7.8 fL (7.5-11.2); Nucleated Red Blood Cells % 0.1 %/100WBC (0.0-0.8); Platelet Count 308 10^3/uL (150-450); Red Blood Count 3.37 10^6/uL (4.06-5.63); Red Cell Distribution Width 12.9 % (12-17); White Blood Count 6.7 10^3/uL (3.6-10.2)
[2023-11-09 05:55] LABS: Albumin 2.5 g/dL (3.2-5.2); Albumin/Globulin Ratio 0.9 (1-3); Calcium 7.7 mg/dL (8.6-10.3); Creatinine, Serum 0.6 mg/dL (0.67-1.17); Globulin 2.7 g/dL (2-4); Magnesium 2.1 mg/dL (1.9-2.7); Phosphorus 2.5 mg/dL (2.5-5.0); Potassium 3.7 mmol/L (3.5-5.0); Total Bilirubin 0.5 mg/dL (0.2-1.0); Total Protein 5.2 g/dL (6.4-8.9); eGFR CKD-EPI 105.1 (>60)
[2023-11-09] MEDS ORDERED: Lorazepam PYXIS KEY PRN (10:57)
[2023-11-09] MEDS: LORazepam 2 mg VIAL 1 ml IV PUSH ONE (11:13)
[2023-11-09] MEDS: Albuterol (2.5 MG) 0.5 % CONC 0.5 ML NEB.SOLN INH ONE (22:47)
[2023-11-09] MEDS: diazePAM INJ CARPUJECT 5 MG/ML SYRINGE IV PRN (23:40)
[2023-11-10 04:46] LABS: ABS Eosinophils 0.1 10^3/uL (0.0-0.5); ABS Lymphocytes 0.5 10^3/uL (1.0-4.8); ABS Monocytes 0.7 10^3/uL (0.0-1.1); ABS Neutrophils 6.6 10^3/uL (1.5-7.6); Eosinophil % 0.8 %; Hematocrit 32.5 % (38-53); Lymphocyte % 6.8 %; Mean Corpuscular Hemoglobin 33.1 pg (27-33); Mean Corpuscular Hgb Conc 33.9 g/dL (31-36); Mean Corpuscular Volume 97.5 fL (80-97); Mean Platelet Volume 7.7 fL (7.5-11.2); Platelet Count 277 10^3/uL (150-450); Red Blood Count 3.34 10^6/uL (4.06-5.63); Red Cell Distribution Width 12.6 % (12-17); White Blood Count 7.9 10^3/uL (3.6-10.2)
[2023-11-10 05:51] LABS: Albumin 2.3 g/dL (3.2-5.2); Albumin/Globulin Ratio 0.9 (1-3); Calcium 7.9 mg/dL (8.6-10.3); Creatinine, Serum 0.45 mg/dL (0.67-1.17); Globulin 2.6 g/dL (2-4); Phosphorus 1.8 mg/dL (2.5-5.0); Potassium 3.5 mmol/L (3.5-5.0); Total Bilirubin 0.4 mg/dL (0.2-1.0); Total Protein 4.9 g/dL (6.4-8.9); eGFR CKD-EPI 114.7 (>60)
[2023-11-10] MEDS: Potassium Phosphate IV 15 MMOL in NS 0.9% 250 ml 250 ML IVPB ONE (08:51)
[2023-11-10] MEDS: Potassium Phosphate IV 30 MMOL in NS 0.9% 250 ml 250 ML IVPB ONE (09:02)
[2023-11-10] MEDS ORDERED: Haloperidol 5 mg/ml SDV IV/IM 5 MG/ML AMP IV SLOW PU PRN (17:46)
[2023-11-11] MEDS: hydrALAZINE 20 mg/ml 1 ML Vial IV IV SLOW PU PRN (04:22)
[2023-11-11 05:11] LABS: ABS Basophils 0.1 10^3/uL (0.0-0.1); ABS Eosinophils 0.1 10^3/uL (0.0-0.5); ABS Lymphocytes 2.1 10^3/uL (1.0-4.8); ABS Monocytes 1.5 10^3/uL (0.0-1.1); ABS Neutrophils 13.3 10^3/uL (1.5-7.6); ABS Nucleated RBC 0.01 10^3/ul; Eosinophil % 0.7 %; Hematocrit 36.6 % (38-53); Hemoglobin 12.1 g/dL (13.2-16.3); Lymphocyte % 12.5 %; Mean Corpuscular Hemoglobin 32.4 pg (27-33); Mean Corpuscular Volume 98.4 fL (80-97); Mean Platelet Volume 7.7 fL (7.5-11.2); Nucleated Red Blood Cells % 0.1 %/100WBC (0.0-0.8); Platelet Count 403 10^3/uL (150-450); Red Blood Count 3.72 10^6/uL (4.06-5.63); Red Cell Distribution Width 12.8 % (12-17); White Blood Count 17.1 10^3/uL (3.6-10.2)
[2023-11-11 05:47] LABS: Calcium 8.1 mg/dL (8.6-10.3); Creatinine, Serum 0.55 mg/dL (0.67-1.17); Magnesium 2.1 mg/dL (1.9-2.7); Phosphorus 3.6 mg/dL (2.5-5.0); Potassium 4.2 mmol/L (3.5-5.0); eGFR CKD-EPI 107.9 (>60)
[2023-11-11] MEDS: Acetylcysteine INH SOL (RT) 200 MG/ML 4 ML VIAL INH PRN (08:22)
[2023-11-11] MEDS: Scopolamine 1 mg/72hr PATCH TRANSDERM SCH (08:29)
[2023-11-11 09:49] LABS: PO2 Arterial 73 mmHg (80-100)
[2023-11-11 09:51] LABS: PCO2 Arterial 98 mmHg (35-45)
[2023-11-11 12:30] LABS: PO2 Arterial 73 mmHg (80-100)
[2023-11-11 12:33] LABS: PCO2 Arterial 88 mmHg (35-45)
[2023-11-11] MEDS ORDERED: Dextrose 50% Syringe 50 ml 25 GM/50 ML SYRINGE IV PUSH PRN (13:14)
[2023-11-11 16:32] LABS: Resp Rate 20
[2023-11-11 16:35] LABS: PCO2 Arterial 47 mmHg (35-45); PO2 Arterial 66 mmHg (80-100)
[2023-11-11] MEDS: Morphine 2 MG/ML SYRINGE IV PRN (22:33)
[2023-11-12 04:32] LABS: ABS Basophils 0.1 10^3/uL (0.0-0.1); ABS Lymphocytes 0.7 10^3/uL (1.0-4.8); ABS Monocytes 0.9 10^3/uL (0.0-1.1); Eosinophil % 0.1 %; Hematocrit 33.8 % (38-53); Mean Corpuscular Hgb Conc 32.7 g/dL (31-36); Mean Platelet Volume 7.5 fL (7.5-11.2); Platelet Count 298 10^3/uL (150-450); Red Blood Count 3.44 10^6/uL (4.06-5.63); Red Cell Distribution Width 12.9 % (12-17); White Blood Count 17.7 10^3/uL (3.6-10.2)
[2023-11-12 05:27] LABS: Calcium 8.1 mg/dL (8.6-10.3); Creatinine, Serum 0.5 mg/dL (0.67-1.17); eGFR CKD-EPI 111.1 (>60)
[2023-11-12 08:44] LABS: Venous Bicarbonate HCO3 24.5 mmol/L (24-28)
[2023-11-12 09:10] LABS: Phosphorus 2.1 mg/dL (2.5-5.0)
[2023-11-12] MEDS: Potassium Phosphate IV 10 MMOL in NS 0.9% 250 ml 250 ML IVPB ONE (10:37)
[2023-11-12] MEDS: hydrALAZINE 20 mg/ml 1 ML Vial IV IV SLOW PU PRN (21:08)
[2023-11-13 04:25] LABS: ABS Basophils 0.1 10^3/uL (0.0-0.1); ABS Lymphocytes 0.7 10^3/uL (1.0-4.8); ABS Neutrophils 14.5 10^3/uL (1.5-7.6); Eosinophil % 0.2 %; Hematocrit 34.8 % (38-53); Hemoglobin 11.4 g/dL (13.2-16.3); Lymphocyte % 4.1 %; Mean Corpuscular Hemoglobin 32.1 pg (27-33); Mean Corpuscular Hgb Conc 32.9 g/dL (31-36); Mean Corpuscular Volume 97.5 fL (80-97); Mean Platelet Volume 7.6 fL (7.5-11.2); Platelet Count 361 10^3/uL (150-450); Red Blood Count 3.56 10^6/uL (4.06-5.63); Red Cell Distribution Width 13.1 % (12-17); White Blood Count 16.3 10^3/uL (3.6-10.2)
[2023-11-13 05:03] LABS: Calcium 7.8 mg/dL (8.6-10.3); Creatinine, Serum 0.48 mg/dL (0.67-1.17); Phosphorus 2.2 mg/dL (2.5-5.0); Potassium 3.7 mmol/L (3.5-5.0); eGFR CKD-EPI 112.5 (>60)
[2023-11-13] MEDS: Potassium Phosphate IV 5 MMOL in NS 0.9% 250 ml 250 ML IVPB ONE (11:08)
[2023-11-13] MEDS: TPN 24 HR with Dextrose 50% Water 500 ML, Amino Acid Infusion 10% 850 ML, Sterile Water... CENT\\PICC SCH (17:09)
[2023-11-14] MEDS ORDERED: Ondansetron 4 mg VIAL 2 MG/ML 2 ml VIAL IV PRN (09:37)
[2023-11-14] MEDS: diazePAM INJ CARPUJECT 5 MG/ML SYRINGE IV PRN (09:56)
[2023-11-14] MEDS: Morphine 2 MG/ML SYRINGE IV PRN (10:07)
[2023-11-14] MEDS: Morphine PCA ADULT 5 MG/ML 30 ML PCA SCH (10:28)
[2023-11-14] MEDS: Morphine 2 MG/ML SYRINGE ONE (10:29)
[2023-11-14 12:24] VITALS: BP 126/73
== END 2023-11-14 19:28 | disposition expired | DRG 208 ==
LOC: ED 12:12 → EDHOLD 12:12 → SUATTDRO 14:28 → MED 15:17 → SUATTDRO 11-01 10:18 → MED 11-01 16:15 → ICU 11-05 05:43
PROVIDERS: ADMIT Internal Medicine; ATTEND Student in an Organized Health Care Education/Training Program